=== PATIENT | male | born 1970 | race Caucasian/White ===

== ENCOUNTER 2021-03-10 17:19 | Inpatient (IN) | payer OTHER ==
[~2021-03-10] VITALS: Ht 175.3 cm; Wt 128.4 kg
--- NOTE | 2021-03-10 17:36 | NUR ---
51 years old male alert, oriented x4 presents to er with abdominal pain x2 days denies nausea, vomiting.
[2021-03-10] MEDS ORDERED: ONDANSETRON HCL/PF 4 MG/2 ML VIAL ONE (17:37)
[2021-03-10] MEDS ORDERED: HYDROMORPHONE 1 MG/1 ML DISP.SYRIN ONE (17:38)
[2021-03-10 17:52] LABS: BASOPHILS # (AUTO) 0.1 K/uL (0.0-0.2); BASOPHILS % (AUTO) 0.4 % (0.0-2.0); HEMATOCRIT 58 % (39-51); LYMPHOCYTES # (AUTO) 0.5 K/uL (0.8-4.8); LYMPHOCYTES % (AUTO) 2.8 % (20.0-44.0); MEAN CORPUSCULAR HGB CONC 34 g/dl (31.0-36.0); MEAN CORPUSCULAR VOLUME 88 fL (80-96); MONOCYTES # (AUTO) 1.6 K/uL (0.1-1.30); MONOCYTES % (AUTO) 8.3 % (2.0-12.0); NEUTROPHILS # (AUTO) 16.5 K/uL (1.8-8.9); NEUTROPHILS % (AUTO) 88.5 % (43.0-81.0); PLATELET COUNT (AUTO) 311 K/uL (150-450); RED BLOOD CELL COUNT(AUTO) 6.58 MIL/uL (4.5-6.0); WHITE BLOOD COUNT (AUTO) 18.7 K/uL (4.3-11.0)
[2021-03-10 17:54] LABS: HEMOGLOBIN 19.5 g/dL (13.5-17.5)
[2021-03-10] MEDS ORDERED: HYDROMORPHONE INJ 2 MG/ML DISP.SYRIN IV ONE (18:00)
[2021-03-10] MEDS ORDERED: IV NS 0.9% 1,000 ML BAG IV ONE ×2 (18:00→19:00)
[2021-03-10] MEDS ORDERED: ONDANSETRON HCL/PF 4 MG/2 ML VIAL IVP ONE (18:00)
[2021-03-10 18:04] LABS: CALCIUM, SERUM 9.9 mg/dL (8.5-10.1); CREATININE 1.7 mg/dL (0.6-1.3); POTASSIUM 3.3 mmol/L (3.5-5.1)
[2021-03-10 18:10] LABS: ALBUMIN 3.4 g/dL (3.4-5.0); BILIRUBIN,TOTAL 2.2 mg/dL (0.2-1.0); TOTAL PROTEIN, SERUM 8.6 g/dL (6.4-8.2)
--- NOTE | 2021-03-10 18:36 | NUR ---
DR. DELGADO SPEAKING WITH DR. ALONZO.
--- NOTE | 2021-03-10 18:40 | NUR ---
CALLED FOR BED
[2021-03-10] MEDS ORDERED: PIPERACILLIN /TAZOBACTAM 3.375 G in IV D5W 50 ML IV ONE (19:00)
--- NOTE | 2021-03-10 19:04 | NUR ---
[facility] CALLED RIGHT OF WAY MAN PAGED.
[2021-03-10 19:06] LABS: BAND % (MANUAL) 6 % (0.0-5.0); LYMPHOCYTES % (MANUAL) 13 % (16-48); MONOCYTES % (MANUAL) 4 % (0-11.0); NEUTROPHILS % (MANUAL) 77 (42-76)
[2021-03-10] MEDS ORDERED: PIPERACILLIN /TAZOBACTAM 3.375 G VIAL IV ONE (19:15)
--- NOTE | 2021-03-10 19:18 | NUR ---
report endorsed to nurse Armenta all questions answered.
--- NOTE | 2021-03-10 19:20 | NUR ---
patient NPO/consent signed for 930 AM surgery.
--- NOTE | 2021-03-10 19:24 | NUR ---
sent covid swab to lab
--- NOTE | 2021-03-10 20:07 | NUR ---
Rosanne malave in [facility] - 03/10/21 at 2007 by EYAD [phone]
--- NOTE | 2021-03-10 20:21 | NUR ---
GAVE REPORT TO LEXY MAC FOR ANDREW
[2021-03-10] MEDS ORDERED: ONDANSETRON HCL/PF 4 MG/2 ML VIAL IVP PRN (20:30)
[2021-03-10] MEDS ORDERED: ZOLPIDEM TARTRATE 5 MG TABLET PO PRN (20:30)
[2021-03-10] MEDS ORDERED: IV NS 0.9% 1,000 ML IV PRN (20:30)
[2021-03-10] MEDS ORDERED: METRONIDAZOLE 500MG/ NS 100ML 500 MG in PREMIX 1 EA IV SCH (20:30)
[2021-03-10] MEDS ORDERED: Z GUARD REMEDY 2 OZ OINT TP PRN (20:30)
[2021-03-10] MEDS ORDERED: MAG HYDROX/AL HYDROX/SIMETH 30 ML UDC PO PRN (20:30)
[2021-03-10] MEDS ORDERED: MAGNESIUM HYDROXIDE 30 ML UDC PO PRN (20:30)
[2021-03-10 20:38] VITALS: BP 113/87
--- NOTE | 2021-03-10 20:38 | NUR ---
RN ADMITTING NOTE PT TRANSPORTED BY TWO PEOPLE FROM ED BY STRETCHER. RECEIVED REPORT FROM [facility], A/OX4. PT ABLE TO MAKE NEEDS KNOWN. NO SOB NOTED, NO C/O PAIN AT THIS TIME, NO S/S OF ANY APPARENT DISTRESS NOTED. RESPIRATIONS EVEN AND UNLABORED, HYPOACTIVE BOWEL SOUNDS AUSULTATED THROUGHOUT, ABDOMEN IS TENDER TO TOUCH. CAP REFILL <3 SECS, PULSES PRESENT BILATERALLY, GOOD CIRCULATION NOTED. IV ACCESS NOTED IN LAC G# 18 INTACT,PATENT, AND FLUSHING WELL. BELONGINGS ACCOUNTED FOR, AND KEPT AT BEDSIDE PER PT REQUEST. ASPIRATION AND SAFETY PRECAUTIONS IN PLACE AND MAINTAINED AT ALL TIMES. BED IN LOWEST LOCKED POSITION, SIDE RAILS UPX2, TABLE AND CALL LIGHT WITHIN REACH. WILL CONTINUE PLAN OF CARE.
[2021-03-10] MEDS: MORPHINE SULFATE INJ 2 MG/ML DISP.SYRIN IV PRN (21:18)
--- NOTE | 2021-03-10 21:18 | NUR ---
PT C/O SHARP AND ACHING 10/10 PAIN ON HIS ABDOMEN, VS WNL PER PT REQUEST MORPHINE 2MG/ML IVP Q4HR PRN ADMINISTERED PER ORDER. WILL CONTINUE TO MONITOR.
[2021-03-11] VITALS (79 sets, daily range): BP systolic 42–169; BP diastolic 16–111
[2021-03-11] MEDS: ZOSYN IVPB 3.375 G in IV D5W 50ml IV SCH ×2 (00:55→08:32)
[2021-03-11] MEDS: MORPHINE SULFATE INJ 2 MG/ML DISP.SYRIN IV PRN (01:45)
[2021-03-11] MEDS ORDERED: MORPHINE SULFATE INJ 4 MG/ML DISP.SYRIN IV PRN (02:30)
--- NOTE | 2021-03-11 02:42 | NUR ---
PT C/O SHARP AND ACHING 10/10 PAIN ON HIS ABDOMEN, NON ALLEVIATING PAIN, PT SCREAMING. DR MYESHA RAMIREZ ORDERED MORPHINE 4MG/ML IVP Q4HR PRN ADMINISTERED PER ORDER. WILL CONTINUE TO MONITOR.
[2021-03-11] MEDS: HYDROMORPHONE 1 MG/1 ML DISP.SYRIN IV PRN (05:03)
--- NOTE | 2021-03-11 05:03 | NUR ---
PT C/O SHARP AND ACHING 10/10 PAIN ON HIS ABDOMEN, NON ALLEVIATING PAIN, PT SCREAMING AND YELLING. DR MYESHA RAMIREZ ORDERED DILAUDID 1MG/ML IVP Q6HR PRN ADMINISTERED PER ORDER. WILL CONTINUE TO MONITOR.
--- NOTE | 2021-03-11 06:30 | NUR ---
RN CLOSING NOTE PT IS AWAKE IN BED AT THIS TIME. 2L O2 VIA NC. NO SOB OR RESPIRATORY DISTRESS NOTED. PT REMAINED UNSTABLE THROUGHOUT SHIFT DUE TO PAIN AND DISCOMFORT. IV ACCESS INTACT,PATENT AND FLUSHING WELL. BED IN LOCKED POSITION, CALL LIGHT AND TABLE WITHIN REACH. SIDE RAILS UPX2. WILL ENDORSE TO DAY SHIFT NURSE
[2021-03-11 07:13] LABS: BASOPHILS % (AUTO) 0.2 % (0.0-2.0); EOSINOPHILS % (AUTO) 0.1 % (0.0-6.0); HEMATOCRIT 57 % (39-51); LYMPHOCYTES # (AUTO) 0.5 K/uL (0.8-4.8); LYMPHOCYTES % (AUTO) 17.2 % (20.0-44.0); MEAN CORPUSCULAR HGB CONC 34 g/dl (31.0-36.0); MEAN CORPUSCULAR VOLUME 89 fL (80-96); MONOCYTES # (AUTO) 0.2 K/uL (0.1-1.30); MONOCYTES % (AUTO) 6.8 % (2.0-12.0); NEUTROPHILS # (AUTO) 2.3 K/uL (1.8-8.9); NEUTROPHILS % (AUTO) 75.7 % (43.0-81.0); PLATELET COUNT (AUTO) 282 K/uL (150-450); RED BLOOD CELL COUNT(AUTO) 6.41 MIL/uL (4.5-6.0)
--- NOTE | 2021-03-11 07:15 | NUR ---
MS RN NOTE PATIENT RECEIVED ALERT AND ORIENTED ON BED. PATIENT COMPLAINING OF PAIN ON ABDOMEN 06/12. PATIET RECEIVED DILAUDID AT AROUND 5 AM ENDORSED AND NEXT MEDICATION IS AT 9AM, PATIENT NOTED TO CALM DOWN BETTERR. ON O2 AT 2-3LPM VIA NASAL CANULA SATURATING AT 94-95% WITH EVEN AND UNLABORED BREATHING. COMFORT MEASURES PROVIDED. WITH IV ACCESS ON LEFT AC G18 WITH NS RUNNING AT 75ML/HR INFUSING WELL. BED IN LOCKED POSITION, CALL LIGHT AND TABLE WITHIN REACH. SIDE RAILS UPX2. WILL CONTINUE TO MONITOR PATIENT.
[2021-03-11 07:19] LABS: HEMOGLOBIN 19.3 g/dL (13.5-17.5)
[2021-03-11 07:30] LABS: ALBUMIN 2.6 g/dL (3.4-5.0); CALCIUM, SERUM 9.5 mg/dL (8.5-10.1); CREATININE 1.7 mg/dL (0.6-1.3); MAGNESIUM 1.9 mg/dL (1.8-2.4); PHOSPHORUS 3.2 mg/dL (2.5-4.9); POTASSIUM 3.6 mmol/L (3.5-5.1); TOTAL PROTEIN, SERUM 7.4 g/dL (6.4-8.2)
[2021-03-11] MEDS ORDERED: PANTOPRAZOLE 40 MG TABLET.DR PO SCH (07:30)
[2021-03-11] MEDS ORDERED: ANESTHESIA TRAY IN PYXIS 1 EA TRAY MC ONE (07:53)
[2021-03-11] MEDS ORDERED: LIDOCAINE 1% INJ 50 ML MDV IJ ONE (07:53)
[2021-03-11] MEDS ORDERED: BUPIVACAINE 0.5 % PF 150 MG/30 ML VIAL ONE (07:53)
[2021-03-11] MEDS ORDERED: BUPIVACAINE MPF W/EPI 0.25% 30 ML VIAL ONE (07:53)
[2021-03-11] MEDS ORDERED: BACITRACIN 50000 UNITS/VIAL ONE (07:54)
[2021-03-11] MEDS: ACETAMINOPHEN 650 MG/SUPP.RECT RC PRN ×2 (08:32→21:13)
--- NOTE | 2021-03-11 08:45 | NUR ---
MS RN NOTE PATIENT FOR SURGERY TODAY. MAINTAINED ON NPO. PATIENT WITH TEMPERATURE OF 101.3. SPONGE BATH DONE. DR. VALENTE NOTIFIED WITH ORDER TO GIVE TYLENOL SUPPOSITORY. COMFORT MEASURES PROVIDED. OR NURSE NOTIFIED. WILL CONTINUE TO MONITOR PATIENT.
--- NOTE | 2021-03-11 09:15 | NUR ---
MS RN NOTE PATIENT PICKED UP BY SYLVIA OF OR FOR SCHEDULED PROCEDURE. MEDICATIONS GIVEN ENDORSED AND WITH LATEST TEMPERATURE OF 99.3. CONSENTS IN THE CHART AND SIGNED BY PATIENT HIMSELF. ACCOMPANIED BY 2 OR NURSES. TO OR. WILL WAIT FOR ADVICE. CHARGE NURSE AWARE.
[2021-03-11] MEDS ORDERED: HYDROMORPHONE INJ 2 MG/ML DISP.SYRIN ONE (09:16)
[2021-03-11 09:17] LABS: BAND % (MANUAL) 6 % (0.0-5.0); LYMPHOCYTES % (MANUAL) 15 % (16-48); MONOCYTES % (MANUAL) 8 % (0-11.0); NEUTROPHILS % (MANUAL) 71 (42-76)
[2021-03-11] MEDS ORDERED: ROCURONIUM BROMIDE 50 MG/5 ML ONE (09:58)
[2021-03-11] MEDS ORDERED: NOREPINEPHRINE 8 MG in IV NS 0.9% 242 ML IV PRN ×2 (10:00→11:30)
[2021-03-11] MEDS ORDERED: METRONIDAZOLE 500MG/ NS 100ML 100 ML IV ONE (10:14)
--- NOTE | 2021-03-11 10:15 | NUR ---
MS RN NOTE RECEIVED A CALL FROM OR THAT PATIENT WAS INTUBATED AND WILL GO TO ICU FOR FURTHER MANAGEMENT. AWAITING AVAILABLE BED.
--- NOTE | 2021-03-11 10:25 | NUR ---
PATIENT WILL GOTO BED 257 ENDORSED BY CHARGE NURSE. PATIENT ENDORSED TO ICU NURSE. WILL BRING PATIENT'S BELONGINGS TO ICU FOR ENDORSEMENT.
--- NOTE | 2021-03-11 11:00 | NUR ---
MS RN NOTE PATIENT ENDORSED TO WELL PULLER ASHLYN. PATIENT IS CURRENTLY AT OR/RR AWAITING TRANSFER TO ICU.
--- NOTE | 2021-03-11 11:10 | NUR ---
RT NOTE RECEIVED PT INTUBATED FROM O.R. 7.5 ETT 25 CM AT LIP. ETT SECURED. CUFF INFLATED. SETTINGS GIVEN BY Garcia FATIMA 14 600 100% +5. ALARMS SET PER PROTOCOL AND AUDIBLE. VENT PLUGGED IN TO RED OUTLET. AMBU BAG AT BED SIDE. Addendum: 03/11/21 at 1112 by HELGA ALONZO RT Amended: Links added.
--- NOTE | 2021-03-11 11:15 | NUR ---
RN RECEIVING NOTES RECEIVED PATIENT FROM LEXY CARDENAS, INTUBATED WITH SETTINGS AC 14 TV 600 FIO2 100% PEEP 5. NGT TO LOW CONTINUOUS SUCTION. CORNEAL REFLEX ABSENT, GAG REFLEX ABSENT, AND COUGH REFLEX ABSENT. ABDO DRESSING INTACT WITH UBALDO SUCTION PRESENT. ISRAEL DRAINING BY GRAVITY. PERIPHERAL LINE AT LEFT AC WITH LEVO AT 0.1MCG/KG. SAFETY CHECKS IN PLACE. WILL CONTINUE TO MONITOR.
[2021-03-11 11:30] LABS: THYROID STIMULATING HORMONE 0.654 uIU/mL (0.358-3.74)
[2021-03-11] MEDS ORDERED: IV D5/0.45 NACL 1,000 ML IV PRN (11:30)
[2021-03-11] MEDS ORDERED: ANCEF 1 GM/50 ML D5W IV SCH (12:00)
[2021-03-11] MEDS ORDERED: METRONIDAZOLE 500MG/ NS 100ML 500 MG in PREMIX 1 EA IV SCH ×2 (12:00→18:00)
[2021-03-11 12:22] LABS: BASOPHILS % (AUTO) 0.1 % (0.0-2.0); HEMATOCRIT 58 % (39-51); LYMPHOCYTES # (AUTO) 0.5 K/uL (0.8-4.8); LYMPHOCYTES % (AUTO) 12.7 % (20.0-44.0); MEAN CORPUSCULAR HGB CONC 33 g/dl (31.0-36.0); MEAN CORPUSCULAR VOLUME 91 fL (80-96); MONOCYTES # (AUTO) 0.1 K/uL (0.1-1.30); NEUTROPHILS # (AUTO) 3.3 K/uL (1.8-8.9); NEUTROPHILS % (AUTO) 84.2 % (43.0-81.0); PLATELET COUNT (AUTO) 251 K/uL (150-450); WHITE BLOOD COUNT (AUTO) 3.9 K/uL (4.3-11.0)
[2021-03-11 12:30] LABS: CALCIUM, SERUM 8.4 mg/dL (8.5-10.1); CREATININE 2.7 mg/dL (0.6-1.3); POTASSIUM 3.6 mmol/L (3.5-5.1)
[2021-03-11 12:40] LABS: HEMOGLOBIN 19.2 g/dL (13.5-17.5)
[2021-03-11] MEDS: METOCLOPRAMIDE HCL 10 MG/2 ML VIAL IV SCH ×3 (12:41→23:23)
[2021-03-11] MEDS: PROPOFOL 100 ML IV PRN ×2 (12:43→23:36)
--- NOTE | 2021-03-11 12:59 | NUR ---
ET-TUBE PULLED BACK TO 20CM AT LIP LINE. RESP. RATE TO 24. PEEP TO 10 Addendum: 03/11/21 at 1301 by MENDOZA LEON RT Amended: Links added.
[2021-03-11] MEDS ORDERED: IV NS 0.9% 500 ML IV ONE (13:00)
[2021-03-11 13:16] LABS: ABG BASE EXCESS -9.8 mmol/L; ABG OXYGEN SATURATION 90.3 % (92.0-98.5); ABG PH 7.113 (7.350-7.450); ABG PO2 69.8 mmHg (75.0-100.0); AaDO2 574.2 mmHg; COHb 0.6 % (0.5-1.5); MetHb 0.6 % (0.0-1.5); O2Hb 89.2 % (94.0-97.0); PEEP,BG 5 cm H2O; SITE, ABG Right Radial; VT, ABG 600 mL
[2021-03-11] MEDS ORDERED: VANCOMYCIN 1.25 GM in IV D5W 250 ML IV SCH (15:00)
[2021-03-11] MEDS ORDERED: CEFEPIME 2 GM in IV D5W 100 ML IV SCH (15:00)
[2021-03-11 15:11] LABS: BASOPHILS % (AUTO) 0.1 % (0.0-2.0); EOSINOPHILS % (AUTO) 0.1 % (0.0-6.0); HEMOGLOBIN 18.8 g/dL (13.5-17.5); LYMPHOCYTES # (AUTO) 0.4 K/uL (0.8-4.8); MEAN CORPUSCULAR HGB CONC 33 g/dl (31.0-36.0); MONOCYTES # (AUTO) 0.3 K/uL (0.1-1.30)
[2021-03-11 15:15] LABS: ABG BASE EXCESS -10.6 mmol/L; ABG OXYGEN SATURATION 89.3 % (92.0-98.5); ABG PCO2 54.7 mmHg (35.0-45.0); ABG PH 7.157 (7.350-7.450); ABG PO2 60.6 mmHg (75.0-100.0); AaDO2 597.7 mmHg; COHb 0.3 % (0.5-1.5); MetHb 0.5 % (0.0-1.5); O2Hb 88.6 % (94.0-97.0); PEEP,BG 10 cm H2O; SITE, ABG Right Radial; VT, ABG 600 mL
[2021-03-11 15:17] LABS: HEMATOCRIT 58 % (39-51); LYMPHOCYTES % (AUTO) 9.8 % (20.0-44.0); MEAN CORPUSCULAR VOLUME 91 fL (80-96); MONOCYTES % (AUTO) 7.3 % (2.0-12.0); NEUTROPHILS # (AUTO) 3.2 K/uL (1.8-8.9); NEUTROPHILS % (AUTO) 82.7 % (43.0-81.0); RED BLOOD CELL COUNT(AUTO) 6.33 MIL/uL (4.5-6.0); WHITE BLOOD COUNT (AUTO) 3.8 K/uL (4.3-11.0)
[2021-03-11] MEDS: PHENYLEPHRINE 100 MG in IV NS 0.9% 240 ML IV PRN ×2 (15:27→21:33)
[2021-03-11 15:29] LABS: CALCIUM, SERUM 8.5 mg/dL (8.5-10.1); CREATININE 3.2 mg/dL (0.6-1.3); POTASSIUM 3.4 mmol/L (3.5-5.1)
[2021-03-11 15:57] LABS: PLATELET COUNT (AUTO) 232 K/uL (150-450)
[2021-03-11 16:16] LABS: BAND % (MANUAL) 22 % (0.0-5.0); LYMPHOCYTES % (MANUAL) 25 % (16-48); MONOCYTES % (MANUAL) 7 % (0-11.0); MYELOCYTES % 13 % (0-0)
[2021-03-11 16:18] LABS: NEUTROPHILS % (MANUAL) 33 (42-76)
[2021-03-11] MEDS: VASOPRESSIN INJ 40 UNIT in IV NS 0.9% 38 ML IV PRN (18:24)
[2021-03-11] MEDS ORDERED: VASOPRESSIN INJ 20 UNIT in IV NS 0.9% 39 ML IV PRN (18:30)
[2021-03-11] MEDS: FLUCONAZOLE IN NS,PREMIX 200 MG in PREMIX 1 EA IV SCH (18:38)
--- NOTE | 2021-03-11 18:57 | NUR ---
RN NOTE CONDITION UNSTABLE. SEDATED AND ORALLY INTUBATED. SETTINGS AC 28 TV 650 FIO2 100% PEEP 10. PICC LINE AT LV. ON GUCCI AT 3.0, STARTED ON VASOPRESSIN AT 0.04 SHOCK DOSE, PROPOFOL AT 15MCG/KG. PICC LINE AT LV. ISRAEL DRAINED VERY SCANT OUTPUT.NG ON LOW CONTINUOUS SUCTION DRAINED 500MLS. IVAS IN PROGRESS. SAFETY CHECKS IN PLACE. WILL ENDORSE TO NIGHT RN FOR CONTINUITY OF CARE.
--- NOTE | 2021-03-11 19:30 | NUR ---
RN NOTE RECEIVED PATIENT IN BED, SEDATED, BREATHING IS RAPID, ON ET TUBE CONNECTED TO MECHANICAL VENTILATOR WITH SETTINGS FOLLOWS: 7.5/20, AC 28, TV 650, FIO2 100%, PEEP 10, SATURATION AT 94%, ST ON THE MONITOR, HR IS 118. NG TUBE AT L NARE CONNECTED TO LOW CONTINUOUS SUCTION, POSITIVE PLACEMENT VERIFIED BY ASPIRATION AND AUSCULTATION, DRAINING TO A BROWNISH OUTPUT, MODERATE AMOUNT NOTED. NOTED LENO 18G, AND LV MIDLINE, ALL HUBS PATENT AND FLUSHING WELL, NO S/S OF INFECTION, WITH D5 1/2 NS INFUSING AT 150 ML/HR, VASOPRESSIN AT 0.04 UNITS/MIN, NEOSYNEPHRINE AT 3 MCG/KG/MIN, PROPOFOL AT 15 MCG/KG/MIN. NOTED POST OP WOUND AT ABDOMEN WITH DRESSING DRY AND INTACT. SAFETY MEASURES IMPLEMENTED. PATIENT BED ALARM IS ON. HEAD OF BED ELEVATED. BED IS LOCKED, IN LOWEST POSITION AND SIDE RAILS UP. CALL LIGHT WITHIN REACH OF THE PATIENT. WILL CONTINUE TO MONITOR AND REASSESS FOR ANY CHANGES.
[2021-03-11] MEDS: MEROPENEM 1 G in IV NS 0.9% 100 ML IV SCH (19:39)
--- NOTE | 2021-03-11 20:10 | NUR ---
RN NOTE NOTED TEMP AT 99.6, COOLING MEASURES PROVIDED. WILL CONTINUE TO MONITOR TEMP.
--- NOTE | 2021-03-11 20:15 | NUR ---
RN NOTE NOTED SBP SUSTAINED AT 60-70'S ON MAX OF VASOPRESSIN AT 0.04 UNITS/MIN, AND GUCCI AT 3 MCG/KG/MIN. DR GABRIEL WAS NOTIFIED, ORDERS RECEIVED TO START LEVOPHED DRIP TO KEEP MAP >65. SOLAR HOT WATER INSTALLER EDMADE AWARE.
[2021-03-11] MEDS: PANTOPRAZOLE 40 MG VIAL IV SCH (21:13)
[2021-03-11] MEDS: HYDROCORTISONE SOD SUCCINATE 100 MG/2 ML VIAL IV SCH (21:13)
[2021-03-11] MEDS: NOREPINEPHRINE 8 MG in IV NS 0.9% 242 ML IV PRN (21:35)
--- NOTE | 2021-03-11 21:45 | NUR ---
RN NOTE LATEST ABG RESULT RELAYED TO DR GABRIEL, WELL LASTEST K LEVEL AT 3.4. ORDERS RECEIVED TO START SODIUM BICARBONATE INFUSION 100 MEQ AT 100 ML/HR, AND KCL IV 40 MEQ. RAIL BENDER ED AWARE.
[2021-03-11 21:50] LABS: ABG BASE EXCESS -13.3 mmol/L; ABG OXYGEN SATURATION 99.3 % (92.0-98.5); ABG PCO2 39.7 mmHg (35.0-45.0); ABG PH 7.179 (7.350-7.450); ABG PO2 207.4 mmHg (75.0-100.0); AaDO2 465.9 mmHg; COHb 0.3 % (0.5-1.5); MetHb 0.6 % (0.0-1.5); O2Hb 98.4 % (94.0-97.0); SITE, ABG Right Radial; VENT MODE, BG ac 28 650 100% +10
--- NOTE | 2021-03-11 22:10 | NUR ---
RT NOTE ABG taken and critical results given to self sealing fuel tank builder. Fio2 titrated to 90% Addendum: 03/11/21 at 2211 by ELIS GRISSOM RT Amended: Links added.
[2021-03-11] MEDS ORDERED: SODIUM BICARBONATE SYR 50 MEQ/50 ML DISP.SYRIN ONE (22:56)
[2021-03-11] MEDS ORDERED: Sodium Bicarbonate 100 MEQ in IV D5W 1,000 ML IV PRN (23:00)
[2021-03-11] MEDS: POTASSIUM CL. PREMIX PERIPHER. 50 ML IV SCH (23:02)
--- NOTE | 2021-03-11 23:40 | NUR ---
RT NOTE PEEP decreased to +5 due to low bp per DIGITAL MEDIA DESIGNER qian orders. Will continue to monitor closely. Addendum: 03/12/21 at 0001 by ELIS GRISSOM RT Amended: Links added.
--- NOTE | 2021-03-11 23:45 | NUR ---
RN NOTE NOTED NO CHANGE IN STATUS, DR GABRIEL WAS NOTIFIED, ORDER RECEIVED TO ADMINISTER SODIUM BICARBONATE 50 MEQ IV ONCE. GREENS PICKER ED AWARE.
[2021-03-12] VITALS (96 sets, daily range): BP systolic 52–158; BP diastolic 24–111
[2021-03-12] MEDS ORDERED: SODIUM BICARBONATE SYR 50 MEQ/50 ML DISP.SYRIN IV ONE
[2021-03-12] MEDS: MORPHINE SULFATE INJ 2 MG/ML DISP.SYRIN IV PRN (00:09)
[2021-03-12] MEDS: POTASSIUM CL. PREMIX PERIPHER. 50 ML IV SCH ×3 (00:15→02:02)
[2021-03-12] MEDS ORDERED: NOREPINEPHRINE 8MG/250ML RTU 250 ML IV ONE ×2 (00:59→05:35)
[2021-03-12] MEDS: NOREPINEPHRINE 8 MG in IV NS 0.9% 242 ML IV PRN ×4 (01:03→05:38)
[2021-03-12] MEDS: PHENYLEPHRINE 100 MG in IV NS 0.9% 240 ML IV PRN ×5 (01:44→19:52)
[2021-03-12] MEDS: ACETAMINOPHEN 650 MG/SUPP.RECT RC PRN ×3 (04:49→21:06)
[2021-03-12] MEDS: METOCLOPRAMIDE HCL 10 MG/2 ML VIAL IV SCH ×4 (05:01→23:02)
[2021-03-12] MEDS: HYDROCORTISONE SOD SUCCINATE 100 MG/2 ML VIAL IV SCH ×3 (05:01→21:06)
[2021-03-12 05:17] LABS: CALCIUM, SERUM 7.6 mg/dL (8.5-10.1); CREATININE 5.4 mg/dL (0.6-1.3); MAGNESIUM 1.9 mg/dL (1.8-2.4); POTASSIUM 4.8 mmol/L (3.5-5.1)
[2021-03-12 05:40] LABS: BASOPHILS % (AUTO) 0.1 % (0.0-2.0); HEMATOCRIT 54 % (39-51); HEMOGLOBIN 17.2 g/dL (13.5-17.5); LYMPHOCYTES # (AUTO) 0.8 K/uL (0.8-4.8); LYMPHOCYTES % (AUTO) 6.9 % (20.0-44.0); MEAN CORPUSCULAR HGB CONC 32 g/dl (31.0-36.0); MEAN CORPUSCULAR VOLUME 93 fL (80-96); MONOCYTES # (AUTO) 0.7 K/uL (0.1-1.30); NEUTROPHILS # (AUTO) 10.6 K/uL (1.8-8.9); RED BLOOD CELL COUNT(AUTO) 5.83 MIL/uL (4.5-6.0); WHITE BLOOD COUNT (AUTO) 12.2 K/uL (4.3-11.0)
[2021-03-12 05:56] LABS: PLATELET COUNT (AUTO) 133 K/uL (150-450)
--- NOTE | 2021-03-12 06:12 | NUR ---
RT NOTE Pt rec'd orally intubated via ETT Sz #7.5 secured @ 20CM at the lipline. Pt on [facility] vent on noted settings as charted. ETT is patent and secured. Alarms are set and audible. Ambu bag bedside. Vent plugged into red outlet. will continue to monitor closely. Addendum: 03/12/21 at 0613 by ELIS GRISSOM RT Amended: Links added.
[2021-03-12] MEDS ORDERED: PHENYLEPHRINE 10 MG/ML VIAL ONE (06:13)
[2021-03-12] MEDS: VASOPRESSIN INJ 40 UNIT in IV NS 0.9% 38 ML IV PRN ×2 (07:58→20:05)
[2021-03-12] MEDS ORDERED: DEXTROSE 50%-WATER 50 ML DISP.SYRIN IV PRN (08:00)
--- NOTE | 2021-03-12 08:00 | NUR ---
RN Note; Pt received intubated, continue with vent settings as ordered. ABG pending. ST >120s on tele monitor. running elevated temp, cooling measures ON. MD notified for minimal UO overnight. F/C intact with minimal urine output <30/12hr with previous shift. PICC line, clean & intact, Pressers running as ordered, titration to keep SBP> 90. Surgical dressing clean & dry. Sx drainage with serosanguineous output. NG tube to low continues suctions with dark green output. Aspiration precautions observed. Safety measures observed. Continue to monitor closely.
[2021-03-12] MEDS: NOREPINEPHRINE 32 MG in IV NS 0.9% 218 ML IV PRN ×3 (08:34→19:53)
[2021-03-12 09:10] LABS: ABG BASE EXCESS -14.7 mmol/L; ABG OXYGEN SATURATION 99.8 % (92.0-98.5); ABG PCO2 31.3 mmHg (35.0-45.0); ABG PO2 442.4 mmHg (75.0-100.0); AaDO2 239.3 mmHg; COHb 0.3 % (0.5-1.5); MetHb 0.9 % (0.0-1.5); O2Hb 98.6 % (94.0-97.0); PEEP,BG 5 cm H2O; SITE, ABG Left Radial; VT, ABG 650 mL
[2021-03-12] MEDS: MEROPENEM 1 G in IV NS 0.9% 100 ML IV SCH ×2 (09:18→21:00)
[2021-03-12] MEDS: PANTOPRAZOLE 40 MG VIAL IV SCH ×2 (09:18→21:06)
[2021-03-12] MEDS: Sodium Bicarbonate 100 MEQ in IV D5W 1,000 ML IV SCH ×2 (09:18→19:35)
[2021-03-12 09:25] LABS: BASOPHILS % (AUTO) 0.2 % (0.0-2.0); EOSINOPHILS % (AUTO) 0.6 % (0.0-6.0); HEMATOCRIT 51 % (39-51); HEMOGLOBIN 16.1 g/dL (13.5-17.5); LYMPHOCYTES # (AUTO) 1.2 K/uL (0.8-4.8); LYMPHOCYTES % (AUTO) 6.7 % (20.0-44.0); MEAN CORPUSCULAR HGB CONC 32 g/dl (31.0-36.0); MEAN CORPUSCULAR VOLUME 92 fL (80-96); MONOCYTES # (AUTO) 0.7 K/uL (0.1-1.30); MONOCYTES % (AUTO) 4.3 % (2.0-12.0); NEUTROPHILS # (AUTO) 15.2 K/uL (1.8-8.9); NEUTROPHILS % (AUTO) 88.2 % (43.0-81.0); PLATELET COUNT (AUTO) 109 K/uL (150-450); RED BLOOD CELL COUNT(AUTO) 5.52 MIL/uL (4.5-6.0); WHITE BLOOD COUNT (AUTO) 17.2 K/uL (4.3-11.0)
[2021-03-12 10:11] LABS: ALBUMIN 1.5 g/dL (3.4-5.0); BILIRUBIN,TOTAL 2.7 mg/dL (0.2-1.0); CREATININE 6.2 mg/dL (0.6-1.3); MAGNESIUM 1.9 mg/dL (1.8-2.4); POTASSIUM 4.9 mmol/L (3.5-5.1); TOTAL PROTEIN, SERUM 5.2 g/dL (6.4-8.2)
[2021-03-12] MEDS: PROPOFOL 100 ML IV PRN ×5 (10:42→23:20)
[2021-03-12 11:02] LABS: BAND % (MANUAL) 11 % (0.0-5.0); LYMPHOCYTES % (MANUAL) 11 % (16-48); MONOCYTES % (MANUAL) 10 % (0-11.0); NEUTROPHILS % (MANUAL) 68 (42-76)
[2021-03-12] MEDS: BLOOD SUGAR DIAGNOSTIC 1 EACH STRIP IN SCH ×2 (11:54→18:30)
[2021-03-12] MEDS: HYDROMORPHONE 1 MG/1 ML DISP.SYRIN IV PRN (13:27)
[2021-03-12] MEDS ORDERED: VANCOMYCIN 1 GM in IV D5W 250ml IV SCH (15:00)
[2021-03-12] MEDS: INSULIN REGULAR, HUMAN 100 UNIT/ML 3 ML VIAL SQ PRN (18:33)
--- NOTE | 2021-03-12 19:29 | NUR ---
RN Note: Report given to evening shift for continuity of care.
--- NOTE | 2021-03-12 19:33 | NUR ---
RN NOTE Received pt intubated, tolerating current vent settings as ordered. currently ST hr 120s on tele monitor. Cooling measures in place. F/C intact with minimal urine output. PICC line, clean & intact, Pressers running as ordered, to keep SBP> 90. Surgical dressing clean & dry drainage with serosanguineous output. NG tube to left nare on low continues suctions. side rails up x 2, safety measures in place will cont. to monitor pt.
[2021-03-12] MEDS: FLUCONAZOLE IN NS,PREMIX 200 MG in PREMIX 1 EA IV SCH (19:36)
[2021-03-12] MEDS: HEPARIN SODIUM, PORCINE 5000 UNITS/1 ML VIAL SQ SCH (21:00)
--- NOTE | 2021-03-12 21:38 | NUR ---
RN NOTE To hold heparin per Dr. Castro.
--- NOTE | 2021-03-12 22:40 | NUR ---
GUIDEMANPHONE ENGINEER RN TALK TO PATIENT BROTHERS:JAZIEL VIDES /[phone], /, VAIBHAV POPE, /[phone]/, SISTER: KONG BABCOCK /[phone]/, & COUSIN TERRY KNUTSON /[phone]/, UPDATED PT CONDITION & PROGNOSIS. FAMILY DECIDED PLACE PT ON DNR CODE, BUT CONTINUE ALL CURRENT TREATMENT. MD TWISTING PRESS OPERATOR WAS NOTIFIED
[2021-03-13] VITALS (96 sets, daily range): BP systolic 72–147; BP diastolic 37–83
[2021-03-13] MEDS: BLOOD SUGAR DIAGNOSTIC 1 EACH STRIP IN SCH ×5 (00:28→23:45)
[2021-03-13] MEDS: INSULIN REGULAR, HUMAN 100 UNIT/ML 3 ML VIAL SQ PRN ×5 (00:29→23:45)
[2021-03-13] MEDS: PHENYLEPHRINE 100 MG in IV NS 0.9% 240 ML IV PRN ×7 (00:30→23:29)
[2021-03-13] MEDS: NOREPINEPHRINE 32 MG in IV NS 0.9% 218 ML IV PRN ×4 (01:09→23:40)
[2021-03-13] MEDS: HYDROMORPHONE 1 MG/1 ML DISP.SYRIN IV PRN (01:54)
[2021-03-13] MEDS: PROPOFOL 100 ML IV PRN ×8 (02:22→22:50)
[2021-03-13] MEDS: HYDROCORTISONE SOD SUCCINATE 100 MG/2 ML VIAL IV SCH (04:38)
[2021-03-13 04:50] LABS: BASOPHILS % (AUTO) 0.2 % (0.0-2.0); EOSINOPHILS % (AUTO) 0.5 % (0.0-6.0); HEMATOCRIT 37 % (39-51); HEMOGLOBIN 12.5 g/dL (13.5-17.5); LYMPHOCYTES # (AUTO) 0.9 K/uL (0.8-4.8); MEAN CORPUSCULAR HGB CONC 34 g/dl (31.0-36.0); MEAN CORPUSCULAR VOLUME 90 fL (80-96); MONOCYTES # (AUTO) 0.6 K/uL (0.1-1.30); NEUTROPHILS # (AUTO) 19.6 K/uL (1.8-8.9); NEUTROPHILS % (AUTO) 92.3 % (43.0-81.0); PLATELET COUNT (AUTO) 66 K/uL (150-450); RED BLOOD CELL COUNT(AUTO) 4.13 MIL/uL (4.5-6.0); WHITE BLOOD COUNT (AUTO) 21.2 K/uL (4.3-11.0)
--- NOTE | 2021-03-13 05:02 | NUR ---
04:30 HRS WAS ADVISED BY ELECTRIC MOTOR REBUILDER EDWARD TO RTN TO DO CX XRAY WHEN PATIENT IS STABLE OR WILL CALL, END OF NOTE...
[2021-03-13 05:10] LABS: MAGNESIUM 1.6 mg/dL (1.8-2.4)
[2021-03-13 05:11] LABS: CREATININE 8.1 mg/dL (0.6-1.3)
[2021-03-13 05:13] LABS: CALCIUM, SERUM 5.8 mg/dL (8.5-10.1)
[2021-03-13] MEDS: METOCLOPRAMIDE HCL 10 MG/2 ML VIAL IV SCH ×4 (05:17→23:45)
[2021-03-13] MEDS: Sodium Bicarbonate 100 MEQ in IV D5W 1,000 ML IV SCH ×2 (05:30→15:13)
--- NOTE | 2021-03-13 05:30 | NUR ---
RN NOTE DR. HALE MADE AWARE OF CALCIUM 5.8. NO NEW ORDERS PER MD
[2021-03-13 05:35] LABS: BASOPHILS % (MANUAL) 0 % (0.0-2.0); EOSINOPHILS % (MANUAL) 0 % (0-4); LYMPHOCYTES % (MANUAL) 4 % (16-48); MONOCYTES % (MANUAL) 4 % (0-11.0)
[2021-03-13 05:52] LABS: BAND % (MANUAL) 40 % (0.0-5.0); METAMYELOCYTES % 2 % (0-0); NEUTROPHILS % (MANUAL) 50 (42-76)
--- NOTE | 2021-03-13 07:15 | NUR ---
EVENT EXECUTIVE NOTES RECEIVED PATIENT SEDATED, RESPONSIVE TO DEEP PAIN STIMULI , PUPILS ARE SLUGGISH , COUGH AND GAG REFLEX PRESENT , TOLERATING CURRENT VENT SETTINGS WITH SPO2 OF 98% , ETT 7.5/[address] 115 ON BEDSIDE MONITOR . UBALDO DRAINING VIA NEGATIVE PRESSURE WITH SEROSANGUINEOUS OUTPUT . FC DRAINING VIA GRAVITY , LEFT NGT DRAINING VIA LOW INTERMITTENT SUCTION WITH GREENISH OUTPUT , LV PICC LINE WITH NEOSYNEPRINE @ 3MNCG/KG/MIN , LECOPHED @ 0.7 MCG/KG/MIN . VASOPRESSIN @ 0.04U/MIN DIPRIVAN @ 45MCG/KG/MIN , 2 AMPS NA BICARB @ 100ML/HR INFUSING WELL . ALL NEEDS ATTENDED ,WILL CONTINUE TO MONITOR .
--- NOTE | 2021-03-13 07:25 | NUR ---
RN NOTE ENDORSED TO AM RN FOR CONTINUATION OF CARE. AWARE PT'S FAMILY WILL COME IN THE MORNING AFTER 0800 AM.
--- NOTE | 2021-03-13 07:40 | NUR ---
RT Pt received orally intubated on mechanical ventilation with noted settings. Vent is plugged into red outlet with BVM by bedside. Alarms are set and audible. Addendum: 03/13/21 at 1831 by TOLU KENNEDY RT Amended: Links added.
[2021-03-13] MEDS: Magnesium 1GM/D5W 100ML PREMIX 100 ML IV SCH ×2 (07:48→09:02)
[2021-03-13] MEDS: ACETAMINOPHEN 650 MG/SUPP.RECT RC PRN ×2 (07:58→12:13)
[2021-03-13] MEDS: HEPARIN SODIUM, PORCINE 5000 UNITS/1 ML VIAL SQ SCH (08:03)
[2021-03-13] MEDS: MEROPENEM 1 G in IV NS 0.9% 100 ML IV SCH ×2 (08:23→20:12)
[2021-03-13] MEDS: PANTOPRAZOLE 40 MG VIAL IV SCH ×2 (08:23→20:12)
[2021-03-13 08:32] LABS: ABG BASE EXCESS -8.7 mmol/L; ABG OXYGEN SATURATION 95.5 % (92.0-98.5); ABG PCO2 28.5 mmHg (35.0-45.0); ABG PH 7.352 (7.350-7.450); ABG PO2 80.7 mmHg (75.0-100.0); AaDO2 149.9 mmHg; COHb 0.2 % (0.5-1.5); MetHb 0.3 % (0.0-1.5); PEEP,BG 5 cm H2O; SITE, ABG Left Radial; VT, ABG 650 mL
--- NOTE | 2021-03-13 08:38 | NUR ---
TECHNOLOGY MANAGER NOTES SEEN AND EVALUATED BY DR VO , DISCUSSED LABS , VENT SETTINGS , PT IS SEDATED WITH DIPRIVAN @ 45MCG/KG/MIN , COUGH / GAG PRESENT , SLUGGISH PUPILS , ON MULTIPLE PRESSORS , LEVO @ 0.5MCG/KG/MIN , GUCCI @3MCG/KG/MIN , VASO @0.04U/MIN , DISCUSSED LATEST ABG . LOW URINE OUTPUT , TEMP OF 104F TYLENOL AND COOLING MEASURES GIVEN MD AWARE
--- NOTE | 2021-03-13 08:42 | NUR ---
ATTENDANCE SECRETARY NOTES SEEN AND EVALUATED BY RISHABH VALENTE , DISCUSSED LABS , VENT SETTINGS , PT IS SEDATED WITH DIPRIVAN @ 45MCG/KG/MIN , COUGH / GAG PRESENT , SLUGGISH PUPILS , ON MULTIPLE PRESSORS , LEVO @ 0.5MCG/KG/MIN , GUCCI @3MCG/KG/MIN , VASO @0.04U/MIN , DISCUSSED LATEST ABG . LOW URINE OUTPUT , TEMP OF 104F TYLENOL AND COOLING MEASURES GIVEN , RI J HD CATH PLACED PENDING HD . SYRUP MACHINE LABORER AWARE
--- NOTE | 2021-03-13 08:42 | NUR ---
1ST GRADE TEACHER NOTES SEEN AND EVALUATED BY DR ENCISO , DISCUSSED PT IS SEDATED WITH DIPRIVAN @45MCG/KG/MIN , COUGH / GAG PRESENT , PUPILS SLUGGISH , ON MULTIPLE PRESSORS , DISCUSSED LABS , MD SOTO
[2021-03-13] MEDS ORDERED: ROCURONIUM BROMIDE 50 MG/5 ML IV ONE (09:50)
--- NOTE | 2021-03-13 09:53 | NUR ---
RECYCLING SORTER NOTES NOTIFIED RISHABH VALENTE THAT HEPARIN IS HELD DUE TO PLT OF 66 TRENDING DOWN , ACCOUNT ADJUSTER AWARE. SEEN AND EVALUATED BY DR DELGADO , DISCUSSED PT HAS MULTIPLE PRESSORS OF LEVO @ 0.5MCG/KG/MIN , GUCCI @ 3MGC/KG/MIN , VASO @ 0.04U/MIN , FEBRILE TEMP OF 103.5 , NGT TO LOW ICS WITH GREEN OUTPUT MODERATE IN AMOUNT , DISCUSSED LABS , AWARE
[2021-03-13] MEDS ORDERED: VANCOMYCIN 1 GM in IV D5W 250ml IV SCH (15:00)
--- NOTE | 2021-03-13 17:16 | NUR ---
PACKING HOUSE LABORER NOTES HD STARTED , PT ON LEVOPHED @ 0.6MMCG/KG/MIN , GUCCI @ 3MCG/KG/MIN , SEDATED WITH DIPRIVAN@ 45MCG/KG/MIN , FEBRILE , 102.5 , TOLERATING VENT SETTINGS WITH SPO2 OF 97% , ST 111 ON BEDSIDE MONITOR , WILL CONTINUE TO MONITOR ,
--- NOTE | 2021-03-13 19:05 | NUR ---
RECEIVED PATIENT SEDATED, RESPONSIVE TO DEEP PAIN STIMULI , PUPILS ARE SLUGGISH ,GAG REFLEX PRESENT , ETT 7.5/[address] TOLERATING CURRENT VENT SETTINGS WITH FIO2 40% SPO2 OF 97% , . ST 101 ON BEDSIDE MONITOR . UBALDO DRAINING VIA NEGATIVE PRESSURE WITH SEROSANGUINEOUS OUTPUT . FC DRAINING VIA GRAVITY , LEFT NGT CONNECTED TO LOW INTERMITTENT SUCTION WITH GREENISH OUTPUT , LV PICC LINE WITH NEOSYNEPRINE @ 3MNCG/KG/MIN , LEVOPHED @ 0.5 MCG/KG/MIN ,DIPRIVAN @ 45MCG/KG/MIN , 2 AMPS NA BICARB + 1L D5W @ 100ML/HR INFUSING WELL .S/P HD 500ML OUT ,BED ON LOWEST POSITION AND LOCKED SIDE RAILS UP X2 WILL CONT TO MONITOR
--- NOTE | 2021-03-13 19:24 | NUR ---
LATENT PRINT EXAMINER NOTES PATIENT SEDATED , RESPONSIVE TO DEEP PAIN STIMULI , PUPILS ARE SLUGGISH , COUGH AND GAG REFLEX PRESENT , TOLERATING CURRENT VENT SETTINGS WITH SPO2 OF 97% , ETT 7.5/[address] 101 ON BEDSIDE MONITOR . UBALDO DRAINING VIA NEGATIVE PRESSURE WITH SEROSANGUINEOUS OUTPUT . FC DRAINING VIA GRAVITY , LEFT NGT DRAINING VIA LOW INTERMITTENT SUCTION WITH GREENISH OUTPUT , LV PICC LINE WITH NEOSYNEPRINE @ 3MNCG/KG/MIN , LEVOPHED @ 0.5 MCG/KG/MIN ,DIPRIVAN @ 45MCG/KG/MIN , 2 AMPS NA BICARB @ 100ML/HR INFUSING WELL .S/P HD 500ML OUT , REPORT GIVEN TO MAYTE FOR CONTINUITY OF CARE
[2021-03-13] MEDS: FLUCONAZOLE IN NS,PREMIX 200 MG in PREMIX 1 EA IV SCH (19:44)
[2021-03-14] VITALS (94 sets, daily range): BP systolic 70–147; BP diastolic 37–83
--- NOTE | 2021-03-14 00:39 | NUR ---
PT ON BED STILL SEDATED ON VENT,SETTING PER MD FIO2 40% SPO2 98% NO SIGN OF ANY RESPIRATORY DISTRESS, NO PAIN NOTED SILL ON GUCCI @ 3MCG/KG/MIN AND LEVOPED @ 0.3 MCG/KG/MIN WITH CURRENT BP 111/63 HR 99 TEMP 99.6 SAFETY MEASURE MAINTAINED WILL CONT TO MONITOR THE PT
[2021-03-14] MEDS: Sodium Bicarbonate 100 MEQ in IV D5W 1,000 ML IV SCH (01:02)
[2021-03-14] MEDS: PROPOFOL 100 ML IV PRN ×3 (02:02→08:35)
[2021-03-14] MEDS: PHENYLEPHRINE 100 MG in IV NS 0.9% 240 ML IV PRN ×5 (03:48→21:30)
[2021-03-14 04:37] LABS: BASOPHILS # (AUTO) 0.1 K/uL (0.0-0.2); BASOPHILS % (AUTO) 0.4 % (0.0-2.0); EOSINOPHILS % (AUTO) 0.6 % (0.0-6.0); HEMATOCRIT 31 % (39-51); HEMOGLOBIN 10.8 g/dL (13.5-17.5); LYMPHOCYTES # (AUTO) 1.2 K/uL (0.8-4.8); LYMPHOCYTES % (AUTO) 7.6 % (20.0-44.0); MEAN CORPUSCULAR HGB CONC 35 g/dl (31.0-36.0); MEAN CORPUSCULAR VOLUME 87 fL (80-96); MONOCYTES # (AUTO) 0.4 K/uL (0.1-1.30); MONOCYTES % (AUTO) 2.7 % (2.0-12.0); NEUTROPHILS # (AUTO) 13.7 K/uL (1.8-8.9); NEUTROPHILS % (AUTO) 88.7 % (43.0-81.0); RED BLOOD CELL COUNT(AUTO) 3.53 MIL/uL (4.5-6.0); WHITE BLOOD COUNT (AUTO) 15.4 K/uL (4.3-11.0)
[2021-03-14 04:49] LABS: PLATELET COUNT (AUTO) 30 K/uL (150-450)
[2021-03-14 04:51] LABS: CALCIUM, SERUM 6.1 mg/dL (8.5-10.1); MAGNESIUM 1.9 mg/dL (1.8-2.4); POTASSIUM 3.5 mmol/L (3.5-5.1)
[2021-03-14] MEDS: METOCLOPRAMIDE HCL 10 MG/2 ML VIAL IV SCH ×4 (05:09→23:29)
[2021-03-14] MEDS: INSULIN REGULAR, HUMAN 100 UNIT/ML 3 ML VIAL SQ PRN ×3 (05:24→23:30)
[2021-03-14] MEDS: BLOOD SUGAR DIAGNOSTIC 1 EACH STRIP IN SCH ×4 (05:24→23:29)
[2021-03-14 05:36] LABS: BAND % (MANUAL) 12 % (0.0-5.0); BASOPHILS % (MANUAL) 0 % (0.0-2.0); EOSINOPHILS % (MANUAL) 1 % (0-4); LYMPHOCYTES % (MANUAL) 4 % (16-48); METAMYELOCYTES % 1 % (0-0); MONOCYTES % (MANUAL) 5 % (0-11.0); NEUTROPHILS % (MANUAL) 77 (42-76)
--- NOTE | 2021-03-14 07:11 | NUR ---
PT STILL ON BED SEDATED,ON VENT/ SETTING PER MD FIO2 50% SPO2 97% NO SIGN OF ANY DISTRESS NO PAIN NOTED, STILL ON PRESSOR ALEXANDRA @3 MCG/KG/MIN LEVO @ 0.3 MCG/KG/MIN, DIPRIVAN @ 45 MCG/KG/MIN AND NaHCO3 @ 100 ML/HR NO SIGNIFICANT CHANGES ON CONDITION NOTED LATEST TEMP 99.6 OFF ON COOLING BLANKET, BED ON LOWEST POSITION AND LOCKED SIDE RAILS UP X2 CALL LIGHT WITHIN REACH WILL ENDORSED TO AM SHIFT NURSE
--- NOTE | 2021-03-14 07:30 | NUR ---
BLINDSTITCH HEMMER OPENING NOTES SEDATED PT LYING IN BED SEMIFOWLER'S ON VENT SETTING PER MD ORDER: ETT 7.5/20, AC 28, TV 600, FIO2 50%, PEEP 5; TOLERATING WELL SPO2 99%, BREATHING EVEN AND UNLABORED, NO S/SOF RESP DISTRESS AT THIS TIME. PT SR IN 90s ON BEDSIDE MONITOR. PT HAS POST OP ABD WOUND WITH C/D/I DRSG, UBALDO DRAIN NOTED, SEROSANGUINEOUS DRAINAGE. PT HAS LV PICC FLSUHED, PATENT AND INTACT, CURRENTLY RUNNING DIPRIVAN @45MCG/KG/MIN, GUCCI @ 3 MCG/KG/MIN, LEVO @ 0.3 MCG/KG/MIN, AND SODIUM BICARB @ 100 ML/HR; PT BP CURRENTLY STABLE. PT LAC FLUSHED AND INTACT. PT RUJ HD CATH INTACT WELL. PT BUE AND BLE EDEMA NOTED. LEFT NGT CONNECTED TO LOW INTERMITTENT SUCTION. PT ISRAEL CATH DRAINING MINIMAL AMOUNTS OF DARK AURA URINE VIA GRAVITY. PT TEMP OF 99.3 F. ALL PT SAFETY PRECAUTIONS IN PLACE. WILL CONT TO MONITOR Addendum: 03/14/21 at 1856 by ALISSA POLLOCK RN NGT AUSCULTATED FOR POSITIVE PLACEMENT
--- NOTE | 2021-03-14 07:47 | NUR ---
RT Pt received orally intubated on mechanical ventilation with noted settings. Vent is plugged into red outlet with BVM by bedside. No SOB or respiratory distress noted. Plan is to continue with current respiratory care orders. Addendum: 03/14/21 at 1710 by TOLU KENNEDY RT Amended: Links added.
[2021-03-14 08:21] LABS: ABG BASE EXCESS 0.4 mmol/L; ABG OXYGEN SATURATION 95.5 % (92.0-98.5); ABG PCO2 30.8 mmHg (35.0-45.0); ABG PH 7.493 (7.350-7.450); ABG PO2 80.2 mmHg (75.0-100.0); AaDO2 234.2 mmHg; COHb 0.3 % (0.5-1.5); MetHb 0.2 % (0.0-1.5); PEEP,BG 5 cm H2O; SITE, ABG Right Radial; VT, ABG 600 mL
[2021-03-14] MEDS: PANTOPRAZOLE 40 MG VIAL IV SCH ×2 (08:25→20:33)
[2021-03-14] MEDS: MEROPENEM 1 G in IV NS 0.9% 100 ML IV SCH ×2 (08:25→20:33)
--- NOTE | 2021-03-14 09:30 | NUR ---
RN NOTE REAL ESTATE LEASING AGENT RISHABH VALENTE AWARE OF PT'S PLT OF 30. NO SIGNS OF BLEEDING NOTED
[2021-03-14] MEDS ORDERED: Sodium Phosphate 30 MMOL in IV NS 0.9% 250 ML IV SCH (11:00)
--- NOTE | 2021-03-14 11:00 | NUR ---
RN NOTE: SEDATION VACATION PT SEDATION VACATION STARTED AT 1000. PT UNABLE TO OPEN EYES OR SQUEEZE MY FINGERS WITH HANDS BILATERALLY. PT NOT RESPONSIVE. TOLERATING WELL, NO TACHYPNEA OR DISTRESS NOTED. WILL CONT TO MONITOR
--- NOTE | 2021-03-14 11:02 | NUR ---
RT ET tube advanced 2cm per Dr. Hannah orders. Equal bilateral breath sounds and chest rise noted. No SOB or respiratory distress noted. Addendum: 03/14/21 at 1148 by TOLU KENNEDY RT Amended: Links added.
[2021-03-14 13:29] LABS: D-DIMER 21.42 mg/L(FEU (0.17-0.50)
[2021-03-14 13:32] LABS: IRON, SERUM 89 ug/dl (50-175); TOTAL IRON BINDING CAPACITY 64 ug/dl (250-450)
[2021-03-14 13:38] LABS: FERRITIN 10537 ng/mL (8-388)
--- NOTE | 2021-03-14 14:00 | NUR ---
RN NOTE PT STILL ON SEDATION VACATION. UNABLE TO OPEN EYES SPONTANEOUSLY OR TO PAINFUL STIMULI. PT UNABLE TO FOLLOW COMMANDS. PT WITHDRAWS TO PAINFUL STIMULI. NO RESP DISTRESS OR TACHYPNEA NOTED, VITALS STABLE. WILL CONT TO MONITOR
[2021-03-14] MEDS: NOREPINEPHRINE 32 MG in IV NS 0.9% 218 ML IV PRN ×2 (15:54→17:30)
[2021-03-14 16:56] LABS: BILIRUBIN,DIRECT 1.4 mg/dL (0.0-0.2); TOTAL PROTEIN, SERUM 4.1 g/dL (6.4-8.2)
[2021-03-14 17:00] LABS: ALBUMIN 1.1 g/dL (3.4-5.0)
--- NOTE | 2021-03-14 17:15 | NUR ---
RN NOTE ALBUMIN LEVEL 1.1. PROFESSIONAL SERVICES CONSULTANTRISHABH AWARE
--- NOTE | 2021-03-14 18:46 | NUR ---
GLASS TINTER CLOSING NOTE PT ABOUT TO START DIALYSIS. PT ON VENT SETTING PER MD ORDER: ETT 7.5/20, AC 28, TV 550, FIO2 50%, PEEP 5; TOLERATING WELL SPO2 100%. PT STILL OFF OF DIPRIVAN, STILL SEDATED AND UNABLE TO OPEN EYES SPONTANEOUSLY OR TO PAINFUL STIMULI, UNABLE TO SQUEEZE HANDS BILATERALLY, NOT RESPONSIVE. PT CURRENTLY INFUSING IN LV PICC GUCCI @ 3 MCG/KG/MIN AND LEVO@ 0.1 MCG/KG/MIN. PT TEMP OF 98.9 F. NO OTHER CHANGES TO PT DURING SHIFT. ALL PT SAFETY PRECAUTIONS IN PLACE. WILL ENDORSE ANDREW TO ONCOMING NURSE
--- NOTE | 2021-03-14 19:15 | NUR ---
RECEIVED PATIENT ON COMATOSE STAG , PUPILS ARE SLUGGISH ,GAG REFLEX PRESENT , ETT 7.[address] TOLERATING CURRENT VENT SETTINGS WITH FIO2 50% SPO2 OF 97% , . SR 100'S ON BEDSIDE MONITOR . UBALDO DRAINING VIA NEGATIVE PRESSURE WITH SEROSANGUINEOUS OUTPUT . FC DRAINING VIA GRAVITY , LEFT NGT CONNECTED TO LOW INTERMITTENT SUCTION WITH GREENISH OUTPUT , LV PICC LINE WITH NEOSYNEPRINE @ 3MNCG/KG/MIN , LEVOPHED @ 0.1 MCG/KG/MIN INFUSING WELL, CURRENTLY UNDERGOING HD, HD NURSE AT BEDSIDE V/S STABLE, HAVE BILATERAL WRIST RESTRAINTS CIRCULATION WILL BE MONITORED REGULARLY ,BED ON LOWEST POSITION AND LOCKED SIDE RAILS UP X2 WILL CONT TO MONITOR
[2021-03-14] MEDS: FLUCONAZOLE IN NS,PREMIX 200 MG in PREMIX 1 EA IV SCH (19:49)
[2021-03-15] VITALS (97 sets, daily range): BP systolic 89–148; BP diastolic 14–77
[2021-03-15] MEDS: PROPOFOL 100 ML IV PRN ×3 (02:03→20:27)
--- NOTE | 2021-03-15 02:10 | NUR ---
PT IS SO TACHYPNIC AFTER THE BED BATH, COUGHING AND BREATHING OVER THE VENT, STARTED PROPOFOL TITRATE ORDER,CHARGE NURSE MADE AWARE
[2021-03-15] MEDS: HYDROMORPHONE 1 MG/1 ML DISP.SYRIN IV PRN (02:17)
[2021-03-15] MEDS: PHENYLEPHRINE 100 MG in IV NS 0.9% 240 ML IV PRN ×5 (02:23→20:33)
[2021-03-15 04:34] LABS: BASOPHILS % (AUTO) 0.4 % (0.0-2.0); EOSINOPHILS % (AUTO) 0.4 % (0.0-6.0); HEMATOCRIT 27 % (39-51); HEMOGLOBIN 9.4 g/dL (13.5-17.5); LYMPHOCYTES # (AUTO) 0.9 K/uL (0.8-4.8); LYMPHOCYTES % (AUTO) 8.3 % (20.0-44.0); MEAN CORPUSCULAR HGB CONC 34 g/dl (31.0-36.0); MEAN CORPUSCULAR VOLUME 87 fL (80-96); MONOCYTES # (AUTO) 0.4 K/uL (0.1-1.30); MONOCYTES % (AUTO) 3.6 % (2.0-12.0); NEUTROPHILS % (AUTO) 87.3 % (43.0-81.0); RED BLOOD CELL COUNT(AUTO) 3.14 MIL/uL (4.5-6.0); WHITE BLOOD COUNT (AUTO) 11.5 K/uL (4.3-11.0)
[2021-03-15 04:41] LABS: CALCIUM, SERUM 6.9 mg/dL (8.5-10.1); CREATININE 5.9 mg/dL (0.6-1.3); MAGNESIUM 2.2 mg/dL (1.8-2.4); POTASSIUM 4.3 mmol/L (3.5-5.1)
[2021-03-15 05:05] LABS: PLATELET COUNT (AUTO) 33 K/uL (150-450)
[2021-03-15 05:31] LABS: BAND % (MANUAL) 4 % (0.0-5.0); LYMPHOCYTES % (MANUAL) 6 % (16-48); METAMYELOCYTES % 2 % (0-0); MONOCYTES % (MANUAL) 6 % (0-11.0); MYELOCYTES % 1 % (0-0); NEUTROPHILS % (MANUAL) 81 (42-76)
[2021-03-15] MEDS: METOCLOPRAMIDE HCL 10 MG/2 ML VIAL IV SCH ×4 (05:31→23:45)
[2021-03-15] MEDS: INSULIN REGULAR, HUMAN 100 UNIT/ML 3 ML VIAL SQ PRN (05:40)
[2021-03-15] MEDS: BLOOD SUGAR DIAGNOSTIC 1 EACH STRIP IN SCH ×4 (05:40→23:45)
--- NOTE | 2021-03-15 07:30 | NUR ---
ICU/RN PT IS INTUBATED ON THE VENT AC MODE, FIO2-50%,SAT O2-95%.SEDATED WITH DIPRIVAN .REACTIVE ON PAIN STIMULATION.ON 2 PRESSORS.T-99.8.SINUS RHYTHM ON MONITOR.PT IS NPO.POST EXP LAP,SMALL BOWEL RESECTION WITH PERITONITIS,RIGHT SIDE UBALDO DRAINING WITH SMALL AMOUNT OF S/S DRAINAGE.NG TUBE CONNECTED TO LOW INTERMEDIATE SUCTION WITH MINIMAL AMOUNT OF GREEN GASTRIC SECRETIONS.ACUTE RENAL FAILURE.HD CATH ON THE RIGHT IJ. F/C IN PLACE WITH A MINIMAL AMOUNT OF AURA URINE. GENERALIZED EDEMA PRESENT.LABS REVIEW ,MD NOTIFIED.SUCTION PROVIDED.REPOSITION FOR COMFORT.
--- NOTE | 2021-03-15 07:50 | NUR ---
RT PATIENT REC'D ORALLY INTUBATED ON [facility] VENT WITH ORDERED SETTINGS ROE WELL. PER DR VO VT LOWERED TO 500. AIRWAY SUCTIONED WITH MOD BROWN MUCOUS PLUGS. VENT ALARMS CHECKED + AUDIBLE. CLOVISU BAG AT HOB. Addendum: 03/15/21 at 1754 by TYLOR WINKLER RT Amended: Links added.
[2021-03-15 08:16] LABS: ABG BASE EXCESS 1.4 mmol/L; ABG OXYGEN SATURATION 97.1 % (92.0-98.5); ABG PCO2 33.7 mmHg (35.0-45.0); ABG PH 7.482 (7.350-7.450); ABG PO2 99.4 mmHg (75.0-100.0); AaDO2 219.2 mmHg; COHb 0.3 % (0.5-1.5); MetHb 0.4 % (0.0-1.5); O2Hb 96.4 % (94.0-97.0); SITE, ABG Right Radial
[2021-03-15] MEDS: MEROPENEM 1 G in IV NS 0.9% 100 ML IV SCH ×2 (08:39→20:40)
[2021-03-15] MEDS: PANTOPRAZOLE 40 MG VIAL IV SCH ×2 (08:39→21:08)
--- NOTE | 2021-03-15 09:00 | NUR ---
ICU/RN DUE MEDS ARE GIVEN ORDERED.
--- NOTE | 2021-03-15 10:00 | NUR ---
ICU/RN SEDATION VACATION PROVIDED.PT IS NOT FOLLOWS COMMAND,NOT OPEN HIS EYES,REACTIVE ON PAIN STIMULATION.TACHYPNEIC AND TACHYCARDIC.DIPRIVAN RESTARTED.DR DELGADO SEEN THE PT .OK TO START TPN.PHARMACY NOTIFIED.REPOSITION FOR COMFORT.
[2021-03-15] MEDS ORDERED: TPN/PPN PER PHARMACY XX PRN (10:30)
[2021-03-15] MEDS: MORPHINE SULFATE INJ 2 MG/ML DISP.SYRIN IV PRN ×2 (10:57→18:20)
[2021-03-15] MEDS ORDERED: NOREPINEPHRINE 8 MG in IV NS 0.9% 242 ML IV PRN (11:30)
[2021-03-15] MEDS ORDERED: TPN BAG #1 IV SCH (14:00)
[2021-03-15] MEDS ORDERED: NOREPINEPHRINE 8 MG in IV NS 0.9% 250ML IV PRN (19:00)
[2021-03-15] MEDS: VANCOMYCIN 500 MG in IV D5W 100 ML IV PRN (19:04)
[2021-03-15] MEDS: FLUCONAZOLE IN NS,PREMIX 200 MG in PREMIX 1 EA IV SCH (20:48)
[2021-03-16] VITALS (94 sets, daily range): BP systolic 84–157; BP diastolic 42–85
[2021-03-16] MEDS: PHENYLEPHRINE 100 MG in IV NS 0.9% 240 ML IV PRN ×5 (00:46→23:33)
[2021-03-16] MEDS: PROPOFOL 100 ML IV PRN ×7 (01:48→23:34)
[2021-03-16] MEDS: ACETAMINOPHEN 650 MG/SUPP.RECT RC PRN ×2 (03:30→14:43)
[2021-03-16 04:26] LABS: BASOPHILS % (AUTO) 0.2 % (0.0-2.0); EOSINOPHILS % (AUTO) 0.7 % (0.0-6.0); HEMATOCRIT 24 % (39-51); HEMOGLOBIN 8.1 g/dL (13.5-17.5); LYMPHOCYTES # (AUTO) 1.8 K/uL (0.8-4.8); LYMPHOCYTES % (AUTO) 11.5 % (20.0-44.0); MEAN CORPUSCULAR HGB CONC 34 g/dl (31.0-36.0); MEAN CORPUSCULAR VOLUME 87 fL (80-96); MONOCYTES # (AUTO) 0.5 K/uL (0.1-1.30); MONOCYTES % (AUTO) 3.2 % (2.0-12.0); NEUTROPHILS # (AUTO) 13.1 K/uL (1.8-8.9); NEUTROPHILS % (AUTO) 84.4 % (43.0-81.0); RED BLOOD CELL COUNT(AUTO) 2.72 MIL/uL (4.5-6.0); WHITE BLOOD COUNT (AUTO) 15.5 K/uL (4.3-11.0)
[2021-03-16 04:28] LABS: PLATELET COUNT (AUTO) 49 K/uL (150-450)
[2021-03-16 04:38] LABS: CALCIUM, SERUM 7.3 mg/dL (8.5-10.1); CREATININE 6.1 mg/dL (0.6-1.3); POTASSIUM 4.1 mmol/L (3.5-5.1)
[2021-03-16 05:09] LABS: BAND % (MANUAL) 6 % (0.0-5.0); LYMPHOCYTES % (MANUAL) 10 % (16-48)
[2021-03-16 05:10] LABS: METAMYELOCYTES % 1 % (0-0); MONOCYTES % (MANUAL) 3 % (0-11.0); MYELOCYTES % 1 % (0-0); NEUTROPHILS % (MANUAL) 79 (42-76)
[2021-03-16] MEDS: METOCLOPRAMIDE HCL 10 MG/2 ML VIAL IV SCH ×4 (06:09→23:50)
[2021-03-16] MEDS: BLOOD SUGAR DIAGNOSTIC 1 EACH STRIP IN SCH ×4 (06:09→23:52)
--- NOTE | 2021-03-16 07:18 | NUR ---
RN RECEIVING NOTES RECEIVED PATIENT SEDATED AND ORALLY INTUBATED WITH MECHVENT SETTINGS ON AC 28 TV 500 FIO2 40% PEEP 5. NSR ON BEDSIDE MONITOR. NGT ON LOW INTERMITTENT SUCTION. ABDO DRESSING DRY AND INTACT WITH UBALDO DRAIN NOTED. ISRAEL DRAINING BY GRAVITY. LV PICC WITH TPN AT 40ML/HR, GUCCI AT 2.6MCG/KG/MIN, AND PROPOFOL AT 20MCG/KG/MIN. RIGHT IJ HD CATHETER NOTED. SAFETY CHECKS IN PLACE. WILL CONTINUE TO MONITOR.
[2021-03-16] MEDS: PANTOPRAZOLE 40 MG VIAL IV SCH ×2 (08:02→22:49)
[2021-03-16] MEDS: MEROPENEM 1 G in IV NS 0.9% 100 ML IV SCH ×2 (08:03→22:56)
[2021-03-16 08:07] LABS: *ANA ANTI-CENTROMERE B AB <0.2 AI (0.0-0.9); *ANA ANTI-DNA(DS) AB, QN <1 IU/mL (0-9); *ANA ANTI-JO-1 <0.2 AI (0.0-0.9); *ANA ANTICHROMATIN ANTIBODY <0.2 AI (0.0-0.9); *ANA RNP ANTIBODIES <0.2 AI (0.0-0.9); *ANA SJOGREN'S ANTI-SS-A <0.2 AI (0.0-0.9); *ANA SJOGREN'S ANTI-SS-B <0.2 AI (0.0-0.9); *ANAANTI-SCLERODERMA-70 AB <0.2 AI (0.0-0.9); *ANASMITH AB <0.2 AI (0.0-0.9); IMMUNOGLOBULIN A, SERUM 117 mg/dL (90-386); IMMUNOGLOBULIN G, SERUM 630 mg/dL (603-1613); IMMUNOGLOBULIN M, SERUM 45 mg/dL (20-172)
[2021-03-16 08:39] LABS: ABG BASE EXCESS 1.6 mmol/L; ABG OXYGEN SATURATION 97.4 % (92.0-98.5); ABG PCO2 35.2 mmHg (35.0-45.0); ABG PH 7.473 (7.350-7.450); ABG PO2 106.9 mmHg (75.0-100.0); AaDO2 137.8 mmHg; COHb 0.3 % (0.5-1.5); MetHb 0.2 % (0.0-1.5); O2Hb 96.9 % (94.0-97.0); SITE, ABG Right Radial; VENT MODE, BG AC 28 500 +5 40%
[2021-03-16 13:07] LABS: *SPE A/G RATIO 0.7 (0.7-1.7); *SPE ALBUMIN 1.5 g/dL (2.9-4.4); *SPE ALPHA-1-GLOBULIN 0.5 g/dL (0.0-0.4); *SPE ALPHA-2-GLOBULIN 0.7 g/dL (0.4-1.0); *SPE BETA GLOBULIN 0.4 g/dL (0.7-1.3); *SPE GLOBULIN, TOTAL 2.1 g/dL (2.2-3.9); *SPE M-SPIKE Not Observed g/dL (Not Observed); *SPEGAMMA GLOBULIN 0.5 g/dL (0.4-1.8)
[2021-03-16] MEDS ORDERED: TPN BAG #2 IV SCH (14:00)
--- NOTE | 2021-03-16 14:00 | NUR ---
RN NOTE PATIENT WAS RESTLESS AND TACHYPNEIC. MAX DOSE OF PROPOFOL INCREASED TO 100MCG/KG.
[2021-03-16] MEDS ORDERED: PROPOFOL 100 ML IV PRN (14:30)
[2021-03-16 16:36] LABS: OCCULT BLOOD STOOL POSITIVE (NEGATIVE)
[2021-03-16 17:00] LABS: MAGNESIUM 2.3 mg/dL (1.8-2.4); PHOSPHORUS 3.9 mg/dL (2.5-4.9)
--- NOTE | 2021-03-16 18:11 | NUR ---
RN CLOSING NOTES PATIENT REMAINS SEDATED AND ORALLY INTUBATED WITH MECHVENT SETTINGS ON AC 28 TV 500 FIO2 40% PEEP 5. NSR ON BEDSIDE MONITOR. NGT ON LOW INTERMITTENT SUCTION WITH NO OUTPUT. ABDO DRESSING DRY AND INTACT WITH UBALDO DRAIN EMPTYING 30MLS. ISRAEL DRAINED 180MLS. BOWELS MOVED AND SAMPLE SENT, + FOR OCCULT BLOOD. LV PICC WITH TPN AT 60ML/HR, GUCCI AT 2MCG/KG/MIN, AND PROPOFOL AT 50MCG/KG/MIN. RIGHT IJ HD CATHETER NOTED FOR HD AT 8PM. SAFETY CHECKS IN PLACE. WILL ENDORSE TO NIGHT RN FOR CONTINUITY OF CARE.
--- NOTE | 2021-03-16 19:30 | NUR ---
ASSISTANT MANAGER: RECEIVED PT ORALLY INTUBATED WT VENT SETTINGS ORDERED. NO ACUTE DISTRESS, NO EVIDENCE OF DISCOMFORT. CONTINUE ON DIPRIVAN DRIP AT 50MCG/KG/MIN FOR SEDATION, NEOSYNEPHRINE DRIP INCREASED TO 2.1 HEMODIALYSIS IS STARTED AT THIS TIME AND TPN AT 60ML/HR. SAFETY PRECAUTION NOTED. WILL CONTINUE TO MONITOR.
--- NOTE | 2021-03-16 20:24 | NUR ---
Received patient intubated on the [facility] vent. 7.5 ett secured at 22cm at the lip. AC 28, 500, 40%, +5. No respiratory distress noted tolerating vent settings. Sx'd small amt of thick chu secretions. Vent alarms set and audible. Ett cuff checked. Ambu bag at bedside. Continue the [facility] vent support. Addendum: 03/16/21 at 2025 by LINETTE ARCHER RT Amended: Links added.
--- NOTE | 2021-03-16 22:00 | NUR ---
SAP TRAINER: HEMODIALYSIS DONE WT 1L FLUID REMOVAL. NO ADVERSE CHANGES NOTED AT THIS TIME. WILL CONTINUE TO MONITOR.
[2021-03-16] MEDS: VANCOMYCIN 500 MG in IV D5W 100 ML IV PRN (22:25)
[2021-03-16] MEDS: FLUCONAZOLE IN NS,PREMIX 200 MG in PREMIX 1 EA IV SCH (22:48)
[2021-03-17] VITALS (97 sets, daily range): BP systolic 82–135; BP diastolic 39–74
[2021-03-17] MEDS: PROPOFOL 100 ML IV PRN ×10 (01:40→23:48)
[2021-03-17] MEDS: ACETAMINOPHEN 650 MG/SUPP.RECT RC PRN ×3 (02:16→20:28)
[2021-03-17 04:30] LABS: BASOPHILS # (AUTO) 0.1 K/uL (0.0-0.2); BASOPHILS % (AUTO) 0.2 % (0.0-2.0); EOSINOPHILS % (AUTO) 1.3 % (0.0-6.0); HEMATOCRIT 24 % (39-51); HEMOGLOBIN 8.5 g/dL (13.5-17.5); LYMPHOCYTES # (AUTO) 1.7 K/uL (0.8-4.8); LYMPHOCYTES % (AUTO) 7.1 % (20.0-44.0); MEAN CORPUSCULAR HGB CONC 36 g/dl (31.0-36.0); MEAN CORPUSCULAR VOLUME 89 fL (80-96); MONOCYTES # (AUTO) 1.1 K/uL (0.1-1.30); MONOCYTES % (AUTO) 4.6 % (2.0-12.0); NEUTROPHILS # (AUTO) 20.5 K/uL (1.8-8.9); NEUTROPHILS % (AUTO) 86.8 % (43.0-81.0); WHITE BLOOD COUNT (AUTO) 23.6 K/uL (4.3-11.0)
[2021-03-17 04:50] LABS: CALCIUM, SERUM 7.8 mg/dL (8.5-10.1); MAGNESIUM 2.1 mg/dL (1.8-2.4); PHOSPHORUS 3.6 mg/dL (2.5-4.9); POTASSIUM 4.3 mmol/L (3.5-5.1)
[2021-03-17] MEDS: METOCLOPRAMIDE HCL 10 MG/2 ML VIAL IV SCH ×4 (05:22→23:51)
[2021-03-17 05:24] LABS: PLATELET COUNT (AUTO) 44 K/uL (150-450)
[2021-03-17] MEDS: BLOOD SUGAR DIAGNOSTIC 1 EACH STRIP IN SCH ×3 (05:37→17:08)
[2021-03-17 06:19] LABS: BAND % (MANUAL) 6 % (0.0-5.0); EOSINOPHILS % (MANUAL) 2 % (0-4); LYMPHOCYTES % (MANUAL) 8 % (16-48); METAMYELOCYTES % 2 % (0-0); MONOCYTES % (MANUAL) 5 % (0-11.0); MYELOCYTES % 4 % (0-0); NEUTROPHILS % (MANUAL) 73 (42-76)
--- NOTE | 2021-03-17 06:50 | NUR ---
RETAIL PHARMACY TECHNICIAN: HAD 1 BOWEL MOVEMENT WT BLACK/TARRY STOOLS IN MODERATE AMT. GIVEN TYLENOL X1 FOR FEVER AND REMAINED WT LOW GRADE TEMP. THROUGHOUT THE SHIFT. BED BATH WT COOLING MEASURES RENDERED. CONTINUE ON GUCCI. AT 1.9 MCG/KG/MIN, PROPOFOL AT 55MCG/KG/MIN AND TPN BAG #3 AT 60ML/HR. SAFETY PRECAUTION NOTED AT ALL TIMES.
[2021-03-17] MEDS ORDERED: TPN BAG #3 IV SCH (07:00)
--- NOTE | 2021-03-17 07:35 | NUR ---
RN RECEIVING NOTES RECEIVED PATIENT SEDATED AND ORALLY INTUBATED WITH [facility] SETTINGS ON AC 28 TV 500 FIO2 40% PEEP 5. NSR ON BEDSIDE MONITOR. NGT ON LOW INTERMITTENT SUCTION. ABDO DRESSING DRY AND INTACT WITH UBALDO DRAIN NOTED. ISRAEL DRAINING BY GRAVITY. LV PICC WITH TPN AT 60ML/HR, GUCCI AT 1.9MCG/KG/MIN, AND PROPOFOL AT 55MCG/KG/MIN. RIGHT IJ HD CATHETER NOTED. SAFETY CHECKS IN PLACE. WILL CONTINUE TO MONITOR.
[2021-03-17] MEDS: PANTOPRAZOLE 40 MG VIAL IV SCH ×2 (08:03→20:29)
[2021-03-17] MEDS: MEROPENEM 1 G in IV NS 0.9% 100 ML IV SCH ×2 (08:32→20:29)
[2021-03-17] MEDS: PHENYLEPHRINE 100 MG in IV NS 0.9% 240 ML IV PRN ×2 (10:13→21:07)
[2021-03-17] MEDS: MICAFUNGIN SODIUM 100 MG in IV NS 0.9% 100 ML IV SCH (11:37)
--- NOTE | 2021-03-17 15:15 | NUR ---
RN NOTE MULTIPLE INCONSISTENCIES TO WHO IS IDENTIFIED NEXT OF KIN/EMERGENCY CONTACT. ENVIRONMENTAL SERVICES ASSOCIATE CONSULT ORDERED.
--- NOTE | 2021-03-17 15:21 | NUR ---
SS consult requested for Next of kin/ responsible alliance party: JAMES called the pt.'s sister, Radha Bliss [phone] who resides in [place] and she stated that her brother, Bola Bliss who resides in [place] is the next of Kin. However, per Radha, Bola has his hands full as he is the matrix inspector for their mother (91 years old with Dementia). Per Radha, she is the next oldest child and will be the responsible alliance party. JAMES requested to speak to Bola. Per Radha, she will have Bola call JAMES AYANNA. JAMES notified Artem PUGH. Radha stated that the pt.'s friends notified her of pt.'s condition and she Radha would like the pt.'s friends to be able to receive updates regarding pt.
--- NOTE | 2021-03-17 19:10 | NUR ---
RN CLOSING NOTES PATIENT REMAINS SEDATED AND ORALLY INTUBATED WITH MECHVENT SETTINGS ON AC 28 TV 500 FIO2 40% PEEP 5. NSR ON BEDSIDE MONITOR. NGT ON LOW INTERMITTENT SUCTION NO OUTPUT. ABDO DRESSING DRY AND INTACT WITH UBALDO DRAINING 30MLS. ISRAEL DRAINED 260MLS BY GRAVITY. LV PICC WITH TPN AT 60ML/HR, GUCCI AT 1.0MCG/KG/MIN, AND PROPOFOL AT 60MCG/KG/MIN. RIGHT IJ HD CATHETER NOTED. 300MLS REMOVED DURING DIALYSIS. SAFETY CHECKS IN PLACE. ENDORSED TO NIGHT RN FOR CONTINUITY OF CARE.
--- NOTE | 2021-03-17 19:25 | NUR ---
WAREHOUSE RECEIVING CLERK OPENING NOTES: RECEIVED SEDATED PT IN BED RESTING COMFORTABLY. PATIENT IN NO S/SX OF ACUTE DISTRESS AT THIS TIME. NO SOB NOTED. PATIENT'S BREATHING IS EVEN AND UNLABORED. PATIENT ON MECHANICAL VENT; SETTINGS PRESCRIBED; PT TOLERATED WELL. AMBU BAG AT BED SIDE ALARMS SET PER PROTOCOL AND AUDIBLE. VENT PLUGGED IN TO RED OUTLET. PATIENT ON TELE MONITORING READING SINUS RHYTHM HR IS @80s AT THE TIME OF RECEIVED. PATIENT CURRENTLY ON NPO. PT HAS NGT CONNECTED ON LOW INTERMITTENT SUCTION NO OUTPUT AT THE TIME OF RECEIVED. IV SITE ON R UA PICC LINE ; PATENT, INTACT AND FLUSHING WELL; NO S/S OF INFECTION OR INFILTRATION. PT ALSO HAS ALL RIGHT IJ HD CATHETER SECURED AND INTACT NO SIGNS OF INFECTION. WITH ABD DRESSING IN PLACE DRY AND INTACT ; WITH UBALDO DRAINING WITH REDDISH OUTPUT NOTED. AT THE TIME OF RECEIVED PT HAS A RUNNING TPN AT 60ML/HR. ALSO HAS GUCCI AT 0.9MCG/KG/MIN, AND PROPOFOL AT 60MCG/KG/MIN MONITORED AND TITRATED PER PROTOCOL. ISRAEL CATH IN PLACE, MINIMAL URINE OUTPUT NOTED YELLOW IN COLOR. SAFETY MEASURES HAVE BEEN PROVIDED AND IMPLEMENTED. PATIENT BED ALARM IS ON. HEAD OF BED ELEVATED. BED IS LOCKED, IN LOWEST POSITION AND SIDE RAILS UP. CALL LIGHT WITHIN REACH OF THE PATIENT. APPLICABLE ISOLATION PRECAUTIONS IN PLACE. WILL CONTINUE TO MONITOR AND REASSESS FOR ANY CHANGES AND WILL CARRY OUT ANY ONGOING AND ACTIVE MD ORDER.
--- NOTE | 2021-03-17 19:35 | NUR ---
RN NOTES CALLED RADIOLOGY DEPT TO FOLLOW UP FOR THE SCHEDULED CT ( CT HEAD WO CONTRAST AND CT ABD W WO CONTRAST) STAFF SAID CALLBACK AFTER 2 HOURS AT THIS TIME THEY CANT ACCOMMODATE. BULL GANG SUPERVISOR MADE AWARE. WILL CALLBACK FOR FOLLOW THROUGH.
--- NOTE | 2021-03-17 20:00 | NUR ---
RN NOTES DURING PM PATIENT CARE, NOTED SKIN ISSUE ON THE COCCYX (STAGE 2 PRESSURE ULCER; MEASURING [id number]. PICTURE TAKEN AND PLACED IN THE CHART. KEPT CLEAN AND DRY. POLE TRUCK DRIVER MADE AWARE. ALSO FACILITATED PLACEMENT OF [employer]/SPECIALTY MATTRESS.
--- NOTE | 2021-03-17 20:30 | NUR ---
RN NOTES NOTED PT'S TEMP IS AT 100.4@2000; PRN MEDICATION GIVEN AND COOLING MEASURES RENDERED. SATELLITE DISH TECHNICIAN MADE AWARE. WILL CONTINUE TO MONITOR AND ASSESS THROUGHOUT THE SHIFT.
--- NOTE | 2021-03-17 21:37 | NUR ---
RN NOTES 2ND CALL TO RADIOLOGY DEPT; FOLLOWED UP FOR THE SCHEDULED CT ( CT HEAD WO CONTRAST AND CT ABD W WO CONTRAST) SPOKE WITH TISH HE MENTIONED THEY CANT ACCOMMODATE TONIGHT AND NEEDS TO BE DONE DEBBIE MORNING @ 7AM EARLIEST. BUT ADVISED TO CALL IN THE MORNING FOR CONFIRMATION. HAT BRIM AND CROWN LAMINATING OPERATOR MADE AWARE.
--- NOTE | 2021-03-17 23:00 | NUR ---
RN NOTES NO CHANGE IN PATIENT CONDITION AT THIS TIME PATIENT VITALS STABLE, NO SIGNS OF ACUTE RESPIRATORY DISTRESS. [place] TOWER LOADER MADE AWARE. WILL CONTINUE TO MONITOR AND REASSESS FOR ANY CHANGES THROUGHOUT THE SHIFT.
[2021-03-17] MEDS ORDERED: TPN BAG #4 IV SCH (23:40)
[2021-03-18] VITALS (100 sets, daily range): BP systolic 79–184; BP diastolic 38–97
[2021-03-18] MEDS: BLOOD SUGAR DIAGNOSTIC 1 EACH STRIP IN SCH ×4 (00:03→17:32)
[2021-03-18] MEDS: INSULIN REGULAR, HUMAN 100 UNIT/ML 3 ML VIAL SQ PRN ×2 (00:04→05:31)
--- NOTE | 2021-03-18 00:05 | NUR ---
RN NOTES NOTED PT'S TEMP IS AT 100@0000; COOLING MEASURES RENDERED. GLOVE TAGGER WELL AWARE. WILL CONTINUE TO MONITOR AND ASSESS THROUGHOUT THE SHIFT
[2021-03-18] MEDS: PROPOFOL 100 ML IV PRN ×5 (01:46→11:30)
--- NOTE | 2021-03-18 04:00 | NUR ---
RN NOTES NO NOTED CHANGES IN PATIENT CONDITION AT THIS TIME; PATIENT VITALS STABLE, NO SIGNS OF ACUTE RESPIRATORY DISTRESS. AM PATIENT CARE RENDERED. SAUSAGE STRINGER MADE AWARE. WILL CONTINUE TO MONITOR AND REASSESS FOR ANY CHANGES THROUGHOUT THE SHIFT.
[2021-03-18 04:22] LABS: BASOPHILS # (AUTO) 0.1 K/uL (0.0-0.2); BASOPHILS % (AUTO) 0.3 % (0.0-2.0); EOSINOPHILS % (AUTO) 1.3 % (0.0-6.0); HEMATOCRIT 25 % (39-51); HEMOGLOBIN 9.1 g/dL (13.5-17.5); LYMPHOCYTES # (AUTO) 1.6 K/uL (0.8-4.8); LYMPHOCYTES % (AUTO) 6.6 % (20.0-44.0); MEAN CORPUSCULAR HGB CONC 36 g/dl (31.0-36.0); MEAN CORPUSCULAR VOLUME 90 fL (80-96); MONOCYTES # (AUTO) 0.7 K/uL (0.1-1.30); MONOCYTES % (AUTO) 2.8 % (2.0-12.0); NEUTROPHILS # (AUTO) 22.2 K/uL (1.8-8.9); PLATELET COUNT (AUTO) 58 K/uL (150-450); RED BLOOD CELL COUNT(AUTO) 2.78 MIL/uL (4.5-6.0); WHITE BLOOD COUNT (AUTO) 24.9 K/uL (4.3-11.0)
[2021-03-18 04:34] LABS: CALCIUM, SERUM 7.2 mg/dL (8.5-10.1); CREATININE 4.5 mg/dL (0.6-1.3); MAGNESIUM 2.1 mg/dL (1.8-2.4); PHOSPHORUS 4.7 mg/dL (2.5-4.9); POTASSIUM 4.3 mmol/L (3.5-5.1)
[2021-03-18] MEDS: METOCLOPRAMIDE HCL 10 MG/2 ML VIAL IV SCH ×4 (05:14→23:24)
[2021-03-18 05:36] LABS: BAND % (MANUAL) 11 % (0.0-5.0); BASOPHILS % (MANUAL) 1 % (0.0-2.0); EOSINOPHILS % (MANUAL) 2 % (0-4); LYMPHOCYTES % (MANUAL) 3 % (16-48); METAMYELOCYTES % 2 % (0-0); MONOCYTES % (MANUAL) 8 % (0-11.0); NEUTROPHILS % (MANUAL) 73 (42-76)
--- NOTE | 2021-03-18 07:04 | NUR ---
RN CLOSING NOTE: PATIENT REMAINS IN ROOM IN NO SIGNS OF RESPIRATORY DISTRESS, PATIENT STILL ON MECH VENT WITH SETTINGS PRESCRIBED ;TOLERATING WELL SATURATING @ 99% OF SP02 AT THE END OF SHIFT. PT STILL ON TPN @75ML/HR, WITH GUCCI RUNNING @ 0.7MCG/KG/MIN AND DIPRIVAN @60MCG/KG/MIN. SAFETY MEASURES IMPLEMENTED, BED IN LOWEST POSITION, LOCKED, SIDE RAILS UP, CALL LIGHT WITHIN REACH. ALL NEEDS AND ORDERS ADDRESSED DURING THE SHIFT. IV ACCESS MAINTAINED INTACT, SECURED AND FLUSHING WELL. ALL DUE MEDS GIVEN ORDERED & SCHEDULED ; PATIENT TOLERATED WELL. PATIENT KEPT CLEAN AND COMFORTABLE WITHIN THE SHIFT. PATIENT ENDORSED TO INCOMING SHIFT RN WITH STABLE VITAL SIGN AND FOR CONTINUITY OF CARE.
--- NOTE | 2021-03-18 08:00 | NUR ---
rn notes RECEIVED PATIENT IN THE BED, DNR. ETT/MECHANICAL VENT. PATIENT RESPIRATION 30, ETT SETTING ARE FIO2-40%, PEEP-5. PATIENT OBESE, RESPIRATORY FAILURE, HAS SACRAL DEEP TISSUE INJURY IN EVOLUTION. GLUTEAL CREASE AREA IS MOIST AND PT IS HAVING BLOODY STOOL. DR DELGADO AWARE. INFUSING DIPRIVAN 60MCG/KG/HR, TPN 75ML/HR, NEOSYNEPHRINE 0.7MCG/KG/HR, AND TKO. .PATIENT HAS ABDOMINAL INCISION, DRESSING INTACT, UBALDO-10ML OUTPUT. NGT INTERMITTENT SUCTION, ISRAEL DRAINING VIA GRAVITY. WILL FOLLOW UP.
--- NOTE | 2021-03-18 08:41 | NUR ---
WOUND CARE CONSULT: PT SEEN FOR SACRAL DEEP TISSUE INJURY IN EVOLUTION. GLUTEAL CREASE AREA IS MOIST AND PT IS HAVING BLOODY STOOL. DR DELGADO AWARE. PT NOTED TO HAVE MULTIPLE CO-MORIBIDITIES INCLUDING OBESITY, RESPIRATORY FAILURE (CURRENTLY INTUBATED) AND RENAL FAILURE (ON DIALYSIS). DUE TO MULTIPLE CO-MORBIDITIES, FURTHER SKIN BREAKDOWN MAY BE UNAVOIDABLE. RECOMMENDATIONS MADE FOR SKIN PROTECTION AND WOUND CARE. DISCUSSED WITH NURSING STAFFAND RIVETING MACHINE OPERATOR AUTOMATIC. PT IS ON FIRST STEP EMIL GREENWOOD MD IN AGREEMENT WITH PLAN OF CARE. Addendum: 03/18/21 at 0843 by RISA HALE WNDNU Amended: Links added.
[2021-03-18] MEDS: MEROPENEM 1 G in IV NS 0.9% 100 ML IV SCH ×2 (08:46→21:06)
--- NOTE | 2021-03-18 08:50 | NUR ---
rn notes Seen patient preschool assistant director Dr Tucker and get TO order Fentanyl drip 50mcg/kg/hr per md order. order taken and carried out.
[2021-03-18] MEDS: PANTOPRAZOLE 40 MG VIAL IV SCH ×2 (09:01→21:05)
[2021-03-18] MEDS: MORPHINE SULFATE INJ 2 MG/ML DISP.SYRIN IV PRN (09:03)
--- NOTE | 2021-03-18 09:03 | NUR ---
RN NOTES ADMINISTERED MORPHINE SULFATE 2ML/HR IV PUSF FOR AMDOMINAL PAIN , BP 124/68, P-91, R-35. PATIENT HAS BLACL MARY STOOL, SURGEON Dr DELGADO AWARE OF. ALSO SEEN PATIENT VIA WOUND NURSE, ASSIST TURN A REPOSTION Q 2 HR WILL MONITORING.
[2021-03-18] MEDS ORDERED: CT SWABBABLE VALVE TRANS SET 1 EA INFUS.SET MC ONE (09:55)
[2021-03-18] MEDS ORDERED: IOHEXOL-300 100 ML VIAL IV ONE (09:55)
--- NOTE | 2021-03-18 10:20 | NUR ---
RN NOTES CT HEAD, ABDOMEN, AND PELVIC DONE.
[2021-03-18] MEDS: MICAFUNGIN SODIUM 100 MG in IV NS 0.9% 100 ML IV SCH (11:30)
[2021-03-18] MEDS: FENTANYL CITRAT IV 2,500 MCG in IV NS 0.9% 200 ML IV PRN ×2 (12:53→21:19)
--- NOTE | 2021-03-18 12:53 | NUR ---
RN NOTES STARTED FENTANYL DRIP AT TIS TIME 25MCG/KG/HR.
[2021-03-18] MEDS ORDERED: TPN BAG #5 IV SCH (13:00)
[2021-03-18] MEDS: PHENYLEPHRINE 100 MG in IV NS 0.9% 240 ML IV PRN (13:02)
--- NOTE | 2021-03-18 13:22 | NUR ---
SS Note: SW received call from pt.'s eldest brother, Augusto Bliss [phone] stating that he would like his sister, Radha Bliss [phone] to be the point of contact at this time as he has his hands full caring for elderly mother. Noted. Per Augusto, Radha will be keeping the family informed and they can make decisions together for Tx. if needed.
--- NOTE | 2021-03-18 13:57 | NUR ---
RN NOTES PATIENT GETTING HEMODIALYSIS AT THIS TIME, SEEN Dr TRIANA
--- NOTE | 2021-03-18 14:55 | NUR ---
RN NOTES PT TRIGLYCERIDE- 1177 AT THIS TIME, LEFT MASSAGE FOR CHIEF PRIVACY OFFICER DR RODRIGUEZ WAITING FOR RESPONDING.
[2021-03-18] MEDS ORDERED: FENTANYL CITRAT IV 2,500 MCG in IV NS 0.9% 200 ML IV PRN (15:30)
[2021-03-18 15:33] LABS: BILIRUBIN,DIRECT 1.3 mg/dL (0.0-0.2); BILIRUBIN,TOTAL 1.7 mg/dL (0.2-1.0); TOTAL PROTEIN, SERUM 4.7 g/dL (6.4-8.2)
[2021-03-18 16:12] LABS: ALBUMIN 1.1 g/dL (3.4-5.0)
--- NOTE | 2021-03-18 16:13 | NUR ---
rn notes Get call from lab albumin level is 1.1.
[2021-03-18] MEDS: MIDAZOLAM HCL 100 MG in IV NS 0.9% 80 ML IV PRN (16:36)
--- NOTE | 2021-03-18 16:40 | NUR ---
rn notes HD finish at this time output was 1800 ml.
[2021-03-18] MEDS: VANCOMYCIN 500 MG in IV D5W 100 ML IV PRN (17:31)
--- NOTE | 2021-03-18 18:45 | NUR ---
RN NOTES PM CARE , SUCTION, MOUTH CARE DONE , DUE MEDICATION ADMINISTERED, BS-90MG/DL. PATIENT SEDATED WITH FENTANYL 135MCG/HR, VERSED 2MG/HR,,[id number], AND GUCCI 0.3 MCG/KG/HR. DRAINED UBALDO-20ML, ISRAEL DRAINING VIA GRAVITY. ELEVATED BILATERAL LOWER AND UPPER EXTREMITIES USING PILLOWS. KEEP HOB ELEVATED. ENDORSED ONCOMING NURSE FOLLOW PLAN OF CARE.
--- NOTE | 2021-03-18 20:00 | NUR ---
RN notes Received sedated on Fentanyl gtt and Versed gtt.Currently intubated to mechanical vent on AC MODE.No acute distress noted.SR.Hemodynamically unstable on Claude Synephrine gtt infusing for BP support and will titrate accordingly.TPN infusing at 75 ml/hr.All iv's infusing via dorina picc line site intact. NGT to LIS with small drainage.FC to gravity.Abdominal dressing C/D/I.UBALDO with corry drainage.Continue to monitor.
[2021-03-18] MEDS: ACETAMINOPHEN 650 MG/SUPP.RECT RC PRN (21:29)
[2021-03-19] VITALS (89 sets, daily range): BP systolic 74–138; BP diastolic 34–71
--- NOTE | 2021-03-19 | NUR ---
Patient feverish Tylenol administered.Bed bath and continuous cooling measures done. Turned and repositioned.
[2021-03-19] MEDS: BLOOD SUGAR DIAGNOSTIC 1 EACH STRIP IN SCH ×4 (00:04→17:34)
[2021-03-19] MEDS: IV NS 0.9% 250 ML IV PRN (00:14)
[2021-03-19] MEDS ORDERED: TPN BAG #6 IV SCH (02:20)
[2021-03-19] MEDS: METOCLOPRAMIDE HCL 10 MG/2 ML VIAL IV SCH ×4 (05:33→23:37)
[2021-03-19 05:43] LABS: D-DIMER 24.35 mg/L(FEU (0.17-0.50)
[2021-03-19 05:51] LABS: CALCIUM, SERUM 7.5 mg/dL (8.5-10.1); CREATININE 4.2 mg/dL (0.6-1.3); MAGNESIUM 1.9 mg/dL (1.8-2.4); PHOSPHORUS 5.9 mg/dL (2.5-4.9); POTASSIUM 4.4 mmol/L (3.5-5.1)
--- NOTE | 2021-03-19 06:00 | NUR ---
Patient resting no acute distress noted.SALES SUPPORT ENGINEER Versed and Fentanyl gtt infusing well.Claude Synephrine infusing and titrated accordingly.SR and latest temp 99.3.Wound care done.Incision healthy.UBALDO small output.Turned and repositioned.FSBS WNL continue TPN as ordered.FC with minimal output.
--- NOTE | 2021-03-19 07:15 | NUR ---
ON SITE MANAGER NOTES RECEIVED PATIENT SEDATED, RESPONSIVE TO DEEP PAIN STIMULI , TOLERATING CURRENT VENT SETTINGS WITH SPO2 OF 98% , ETT 7.01/[address] . SR 86 ON BEDSIDE MONITOR . UBALDO DRAINING VIA NEGATIVE PRESSURE WITH SEROSANGUINEOUS OUTPUT . FC DRAINING VIA GRAVITY , LEFT NGT DRAINING VIA LOW INTERMITTENT SUCTION , LV PICC LINE WITH NEOSYNEPRINE @ 0.5MNCG/KG/MIN , TPN@ 75ML/HR , VERSED @3MG/HR , FENTANYL @ 135MCG/KG/MIN INFUSING WELL . ALL NEEDS ATTENDED ,WILL CONTINUE TO MONITOR .
[2021-03-19 07:39] LABS: ABG BASE EXCESS -2.3 mmol/L; ABG OXYGEN SATURATION 96.7 % (92.0-98.5); ABG PCO2 33.6 mmHg (35.0-45.0); ABG PH 7.428 (7.350-7.450); ABG PO2 87.7 mmHg (75.0-100.0); COHb 0.8 % (0.5-1.5); MetHb 0.4 % (0.0-1.5); O2Hb 95.5 % (94.0-97.0); PEEP,BG 5 cm H2O; SITE, ABG Right Radial; VT, ABG 500 mL
--- NOTE | 2021-03-19 07:50 | NUR ---
ICE GUARD INSPECTOR NOTES SEEN AND EVALUATED BY DR SHELLEY , NOTIFIED REGARDING CT HEAD RESULT , TEMP OF 100F , ON GUCCI @ 0.2MCG/KG/MIN , WILL TITRATE SEDATIONS FOR SEDATION MD TAURUS AWARE
--- NOTE | 2021-03-19 08:00 | NUR ---
IV THERAPY NURSE NOTES SEEN AND EVALUATED BY DR KILGORE , DISCUSSED LABS , TEMP OF 100F , ON NEOSYNEPRINE @ 0.2MCG/KG/MIN , NOTIFIED CT HEAD AND ABDOMEN RESULT , WILL TITRATE DOWN SEDATION FOR SEDATION VACATION . AWARE .
[2021-03-19] MEDS: PANTOPRAZOLE 40 MG VIAL IV SCH ×2 (08:07→20:31)
--- NOTE | 2021-03-19 08:16 | NUR ---
TERRAZZO LAYER HELPER NOTES SEEN AND EVALUATED BY DR DELGADO , DISCUSSED LABS , ON NEOSYNEPRINE @ 0.2MCG/KG/MIN , LOW GRADE TEMP OF 100.1F , WILL TITRATE SEDATION TO CHECK NEURO STATUS , NOTIFIED CT ABDOMEN / PELVIS RESULT , NGT TO LOW INTERMITTENT SUCTION NOTED WITH LOW THICK CLEAR OUTPUT , PER MD START NGT FEEDING , DO DIETARY CONSULT , ORDER CARRIED OUT .
[2021-03-19] MEDS: MICAFUNGIN SODIUM 100 MG in IV NS 0.9% 100 ML IV SCH (10:58)
[2021-03-19 11:12] LABS: BILIRUBIN,DIRECT 1.9 mg/dL (0.0-0.2); BILIRUBIN,TOTAL 2.4 mg/dL (0.2-1.0); TOTAL PROTEIN, SERUM 4.9 g/dL (6.4-8.2)
[2021-03-19] MEDS: ACETAMINOPHEN 650 MG/SUPP.RECT RC PRN (11:27)
[2021-03-19 11:45] LABS: ALBUMIN 1.1 g/dL (3.4-5.0)
--- NOTE | 2021-03-19 11:51 | NUR ---
agricultural technician notes temp of 101.1 f , tylenol 650mg supp given , sputum and urine culture collected labeled and sent to lab , versed and fentanyl off for sedation vacation , no apparent distress at this time , tolerating current vent settings with spo2 of 96% will continue to monitor .
[2021-03-19] MEDS: MEROPENEM 500 MG in IV NS 0.9% 50 ML IV SCH ×2 (12:17→22:25)
--- NOTE | 2021-03-19 12:45 | NUR ---
icu registered nurse notes pt noted with distress , rr of 30-38 cpm , spo2 of 90% via mechanical vent settings as ordered , prn dilaudid given ivp and restarted fentanyl @ 135mcg/kg/min , will titrate accordingly , unable to assess neuro status , pt responsive to deep pain stimuli , unable to follow commands . will continue to monitor .
[2021-03-19] MEDS: HYDROMORPHONE 1 MG/1 ML DISP.SYRIN IV PRN (12:47)
--- NOTE | 2021-03-19 13:21 | NUR ---
arboriculture instructor notes pt stable prior to hd . bp of 92/43 hr 98 , rr 30 cpm , temp of 100.2 , neosyneprine restarted , will titrate prn . will continue to monitor .
--- NOTE | 2021-03-19 15:33 | NUR ---
sericulturist notes called dietary to follow up consult regarding ngt feeding , awaiting for call back
[2021-03-19] MEDS ORDERED: TPN BAG #7 IV SCH (15:40)
[2021-03-19] MEDS: MIDAZOLAM HCL 100 MG in IV NS 0.9% 80 ML IV PRN (15:58)
[2021-03-19] MEDS: VANCOMYCIN 500 MG in IV D5W 100 ML IV PRN (15:58)
--- NOTE | 2021-03-19 16:23 | NUR ---
cvicu nurse notes pt stable s/p hd , 1l out , no change in condition noted , will titrate darby per protocol
[2021-03-19] MEDS: PHENYLEPHRINE 100 MG in IV NS 0.9% 240 ML IV PRN (18:06)
[2021-03-19] MEDS: FENTANYL CITRAT IV 2,500 MCG in IV NS 0.9% 200 ML IV PRN (18:48)
--- NOTE | 2021-03-19 19:39 | NUR ---
RCVD PT ORALLY INTUBATED W/ 7.5 ETT SECURED @ 22 CM LIP [facility] WITH THE SETTINGS OF AC 28,500, 40% PEEP 5. PT IS SEDATED , SUCTIONED SMALL AMOUNT OF [place] THICK SECRETIONS. CUFF INFLATED , EQUAL CHEST RISE NOTED. VENT PLUGGED INTO RED OUTLET, VENT ALARMS ON AND AUDIBLE. WILL CONTINUE TO MONITOR PT T/O SHIFT.
--- NOTE | 2021-03-19 19:51 | NUR ---
horticulturalist. initial assessment. received the pt rest on the bed. orally intubated. sedated with versed and fentanyl. ett 7.5, ac 28, lip 22cms, tv 500,fio2 40%, peep 5. sat 98%. secured entrance monitor showing nsr. iv rt upper arm picc line, rt ij hd cath, fc patent. ngt intact. nepro 10 ml/h. goal is 20. tpn 75ml/h,darby 0.4mcg/kg/min, versed 2mcg/kg/min, fentanyl 1mcg/kg/min, hob elevated, balaji lower and upper extremity edema 4+. pt is unstable, temperature is 100.6. will continue to monitor vitals.
[2021-03-19] MEDS: ACETAMINOPHEN 325 MG TABLET PO PRN (20:31)
[2021-03-19] MEDS: NEPRO 1,000 ML BOTTLE GT PRN (20:32)
--- NOTE | 2021-03-19 20:45 | NUR ---
vocational horticulture instructor. ngt residual is 60ml.
--- NOTE | 2021-03-19 20:55 | NUR ---
agriculture specialist. pt ngt residual is 60ml. notified Guillermo GARAY. ORDER IS CONTINUE FEEDING. WILL MONITOR
[2021-03-19] MEDS ORDERED: MEROPENEM 1 G in IV NS 0.9% 100 ML IV SCH (21:00)
[2021-03-20] VITALS (83 sets, daily range): BP systolic 70–135; BP diastolic 38–79
--- NOTE | 2021-03-20 01:07 | NUR ---
agricultural agent. ngt residual at this time 200. ml. will continue to monitor
--- NOTE | 2021-03-20 02:24 | NUR ---
curriculum advisory teacher. 0200. residual is 60. ngt feeding re -started. will monitor
--- NOTE | 2021-03-20 04:30 | NUR ---
agricultural scientist. 0300 ngt feeding resumed. will monitor residual.
--- NOTE | 2021-03-20 04:31 | NUR ---
agriculture worker. am acre given. remaining same vent settings on. ngt feeding at this time 10 ml/h. temperature 100.8. hob elevated. fc patent. urine draining. turn and reposition q2h. will continue to monitor vitals.
[2021-03-20] MEDS: ACETAMINOPHEN 325 MG TABLET PO PRN ×2 (04:51→16:17)
[2021-03-20 04:58] LABS: BASOPHILS % (AUTO) 0.1 % (0.0-2.0); EOSINOPHILS % (AUTO) 0.5 % (0.0-6.0); HEMATOCRIT 22 % (39-51); HEMOGLOBIN 7.2 g/dL (13.5-17.5); LYMPHOCYTES # (AUTO) 0.7 K/uL (0.8-4.8); LYMPHOCYTES % (AUTO) 3.2 % (20.0-44.0); MEAN CORPUSCULAR HGB CONC 34 g/dl (31.0-36.0); MEAN CORPUSCULAR VOLUME 89 fL (80-96); MONOCYTES % (AUTO) 4.4 % (2.0-12.0); NEUTROPHILS # (AUTO) 19.8 K/uL (1.8-8.9); NEUTROPHILS % (AUTO) 91.8 % (43.0-81.0); PLATELET COUNT (AUTO) 93 K/uL (150-450); RED BLOOD CELL COUNT(AUTO) 2.42 MIL/uL (4.5-6.0); WHITE BLOOD COUNT (AUTO) 21.6 K/uL (4.3-11.0)
[2021-03-20 05:14] LABS: CALCIUM, SERUM 7.5 mg/dL (8.5-10.1); CREATININE 4.2 mg/dL (0.6-1.3); MAGNESIUM 1.8 mg/dL (1.8-2.4); PHOSPHORUS 5.3 mg/dL (2.5-4.9); POTASSIUM 3.9 mmol/L (3.5-5.1)
[2021-03-20] MEDS: METOCLOPRAMIDE HCL 10 MG/2 ML VIAL IV SCH ×4 (05:26→23:29)
[2021-03-20] MEDS: BLOOD SUGAR DIAGNOSTIC 1 EACH STRIP IN SCH ×5 (05:27→23:29)
--- NOTE | 2021-03-20 07:00 | NUR ---
SHAREMILKER NOTES RECEIVED PATIENT SEDATED, RESPONSIVE TO DEEP PAIN STIMULI , TOLERATING CURRENT VENT SETTINGS WITH SPO2 OF 96% , ETT 7.01/[address] . SR 90 ON BEDSIDE MONITOR . UBALDO DRAINING VIA NEGATIVE PRESSURE WITH SEROSANGUINEOUS OUTPUT . FC DRAINING VIA GRAVITY , NGT FEEDING AT 10CC/HR RUNNING , LV PICC LINE WITH NEOSYNEPRINE @ 0.2 MCG/KG/MIN , VERSED @2 MG/HR , FENTANYL @ 135MCG/KG/MIN INFUSING WELL . ALL NEEDS ATTENDED , SR UP x3, BED LOCKED AND IN LOWEST POSITION, WILL CONTINUE TO MONITOR .
[2021-03-20 07:54] LABS: BAND % (MANUAL) 4 % (0.0-5.0); LYMPHOCYTES % (MANUAL) 3 % (16-48); METAMYELOCYTES % 3 % (0-0); MONOCYTES % (MANUAL) 1 % (0-11.0); NEUTROPHILS % (MANUAL) 89 (42-76)
[2021-03-20] MEDS ORDERED: TPN BAG #8 IV SCH (08:00)
[2021-03-20] MEDS: PANTOPRAZOLE 40 MG VIAL IV SCH ×2 (08:39→22:00)
[2021-03-20 08:49] LABS: ABG BASE EXCESS -1.2 mmol/L; ABG OXYGEN SATURATION 96.1 % (92.0-98.5); ABG PCO2 35.6 mmHg (35.0-45.0); ABG PH 7.428 (7.350-7.450); ABG PO2 88.9 mmHg (75.0-100.0); AaDO2 155.4 mmHg; COHb 1.3 % (0.5-1.5); MetHb 0.1 % (0.0-1.5); O2Hb 94.8 % (94.0-97.0); PEEP,BG 5 cm H2O; SITE, ABG Right Radial; VT, ABG 500 mL
--- NOTE | 2021-03-20 10:00 | NUR ---
RN NOTES DR DELGADO NOTIFIED REGARDING HIGH TF RESIDUAL , TPN RESTARTED PER DR. DELGADO ORDER.
[2021-03-20] MEDS: MEROPENEM 500 MG in IV NS 0.9% 50 ML IV SCH ×2 (10:44→23:29)
[2021-03-20] MEDS ORDERED: FENTANYL CITRAT IV 2,500 MCG in IV NS 0.9% 200 ML IV PRN (11:00)
[2021-03-20] MEDS: MICAFUNGIN SODIUM 100 MG in IV NS 0.9% 100 ML IV SCH (11:23)
--- NOTE | 2021-03-20 12:00 | NUR ---
RN NOTES 130 CC TF RESIDUAL NOTED, TF HELD AT THIS TIME. CONTINUE TO MONITOR .
[2021-03-20] MEDS: FENTANYL CITRAT IV 2,500 MCG in IV NS 0.9% 200 ML IV PRN (14:16)
[2021-03-20] MEDS: MIDAZOLAM HCL 100 MG in IV NS 0.9% 80 ML IV PRN (14:17)
--- NOTE | 2021-03-20 16:00 | NUR ---
RN NOTES GUCCI AT .2 MCG/KG/MIN RUNNING, BP STABLE , CONTINUE TO MONITOR .
[2021-03-20] MEDS: PHENYLEPHRINE 100 MG in IV NS 0.9% 240 ML IV PRN (16:14)
--- NOTE | 2021-03-20 18:18 | NUR ---
RN NOTES T=100.6 AT THIS TIME, COOLING MEASURES INPLACED , PT REMANINS INTUBATED AND SEDATED, TOLERAING CURRENT VENT SETTING WELL, ON FENTANYL AT 1 MCG/KG/MIN, VERSED AT 1 MG/HR, TPN AT 75CC/HR , GUCCI AT .1 MCG/KG/MIN RUNNING , TF AT 10 CC /HR DUE TO HIGH RESIDUAL , UBALDO DRAIN INTACT, ISRAEL DRAINING TO GRAVITY,SR UP x3, CALL LIGHT WITHIN EASY REACH, BED LOCKED AND IN LOWEST POSITION, WILL ENDORSE TO JEWELSMITH NURSE FOR CONTINUITY OF CARE .
[2021-03-20] MEDS ORDERED: TPN BAG #9 IV SCH (22:00)
--- NOTE | 2021-03-20 22:00 | NUR ---
MANAGEMENT ACCOUNTANT RCD PTWITH TUBE FEEDING AT 10 ML/HR AT 1929 RESIDUAL WAS 170 ML TUBE FEEDING STOPPED AT THIS TIME. AT 2129 RESIDUAL WAS RECHECKED AND FOUND TO BE 90 ML.NOTIFIED REWORKER KNIGHT WITH ORDERS TO STOP TUBE FEEDING AND NOTIFY SURGEON IN AM. PT REMAINS ON TPN.
[2021-03-21] VITALS (53 sets, daily range): BP systolic 96–149; BP diastolic 49–85
[2021-03-21] MEDS: VANCOMYCIN 500 MG in IV D5W 100 ML IV PRN (01:45)
[2021-03-21] MEDS: ACETAMINOPHEN 650 MG/SUPP.RECT RC PRN ×3 (02:31→22:12)
[2021-03-21 04:29] LABS: BASOPHILS # (AUTO) 0.1 K/uL (0.0-0.2); BASOPHILS % (AUTO) 0.6 % (0.0-2.0); EOSINOPHILS % (AUTO) 0.7 % (0.0-6.0); HEMATOCRIT 21 % (39-51); HEMOGLOBIN 7.1 g/dL (13.5-17.5); LYMPHOCYTES % (AUTO) 4.8 % (20.0-44.0); MEAN CORPUSCULAR HGB CONC 33 g/dl (31.0-36.0); MEAN CORPUSCULAR VOLUME 89 fL (80-96); MONOCYTES # (AUTO) 0.9 K/uL (0.1-1.30); NEUTROPHILS # (AUTO) 19.2 K/uL (1.8-8.9); NEUTROPHILS % (AUTO) 89.9 % (43.0-81.0); PLATELET COUNT (AUTO) 57 K/uL (150-450); WHITE BLOOD COUNT (AUTO) 21.3 K/uL (4.3-11.0)
[2021-03-21 04:35] LABS: CALCIUM, SERUM 7.6 mg/dL (8.5-10.1); CREATININE 5.2 mg/dL (0.6-1.3); PHOSPHORUS 7.4 mg/dL (2.5-4.9); POTASSIUM 4.6 mmol/L (3.5-5.1)
[2021-03-21 04:43] LABS: BILIRUBIN,DIRECT 3.5 mg/dL (0.0-0.2); TOTAL PROTEIN, SERUM 5.5 g/dL (6.4-8.2)
[2021-03-21 05:28] LABS: ALBUMIN 0.9 g/dL (3.4-5.0)
[2021-03-21] MEDS: METOCLOPRAMIDE HCL 10 MG/2 ML VIAL IV SCH ×4 (05:34→22:51)
[2021-03-21] MEDS: BLOOD SUGAR DIAGNOSTIC 1 EACH STRIP IN SCH ×4 (05:34→23:53)
[2021-03-21 05:49] LABS: BAND % (MANUAL) 2 % (0.0-5.0); LYMPHOCYTES % (MANUAL) 8 % (16-48); MONOCYTES % (MANUAL) 3 % (0-11.0); NEUTROPHILS % (MANUAL) 87 (42-76)
--- NOTE | 2021-03-21 07:30 | NUR ---
ELECTRICIAN CRANE MAINTENANCE OPENING NOTE ETT/VENT PT SEDATED, SEMIFOWLER'S IN BED ON VENT SETTINGS PER MD ORDER, TOLERATING WELL, SPO2 OF 100%, NO S/S OF RESP DISTRESS OR SOB, BREATHING EVEN AND UNLABORED, PT RESPONSIVE TO PAINFUL STIMULI. PT NSR ON BEDSIDE MONITOR, HR 80s. PT RT IJ HD CATH, INTACT. PT LT NARE NGT AUSCULTATED FOR POSITIVE PLACEMENT, RESIDUALS OF 300cc, WILL INFORM DR KILGORE, NGT CLAMPED. PT UBALDO DRAIN DRAINING VIA NEGATIVE PRESSURE SEROSANGUINEOUS OUTPUT. ISRAEL CATH DRAINING CLEAR AURA URINE TO GRAVITY. LV PICC LINE INFUSING VERSED @ 1MG/HR, FENTANYL @ 135 MCG/KG/MIN, AND TPN @ 75 ML/HR. ALL PIGTAILS FLUSHED AND INTACT/PATENT. ALL PT SAFETY PRECAUTIONS IN PLACE, WILL CONT TO MONITOR
[2021-03-21] MEDS: PANTOPRAZOLE 40 MG VIAL IV SCH ×2 (09:28→21:44)
[2021-03-21] MEDS: FENTANYL CITRAT IV 2,500 MCG in IV NS 0.9% 200 ML IV PRN ×2 (09:38→21:48)
[2021-03-21] MEDS ORDERED: TPN BAG #10 IV SCH (10:00)
--- NOTE | 2021-03-21 10:15 | NUR ---
RN NOTE PT TAKEN OFF VERSED AT [address] MENDOZA ORDER, AT 1010 PT BEGAN SHOWING SYMPTOMS OF DISTRESS, BREATHING OVER VENT SETTINGS, RT BEDSIDE. VERSED RESTARTED AT 1015. PT WAS ABLE TO OPEN EYES, BUT UNABLE TO TRACK, UNABLE TO FOLLOW ANY COMMANDS. WILL CONT TO MONITOR
--- NOTE | 2021-03-21 11:30 | NUR ---
RN NOTE DR KILGORE AWAREOF 300cc RESIDUALS, OK WITH ALL 300cc PLACED BACK INTOPT'S NGT/STOMACH
[2021-03-21] MEDS: MEROPENEM 500 MG in IV NS 0.9% 50 ML IV SCH ×2 (11:46→22:51)
[2021-03-21] MEDS: MICAFUNGIN SODIUM 100 MG in IV NS 0.9% 100 ML IV SCH (11:47)
--- NOTE | 2021-03-21 15:45 | NUR ---
RN NOTE TYLENOL 650MG SUPPOSITORY GIVEN FOR TEMP OF 99.9 F
[2021-03-21] MEDS: MIDAZOLAM HCL 100 MG in IV NS 0.9% 80 ML IV PRN (15:51)
--- NOTE | 2021-03-21 18:45 | NUR ---
EXECUTOR OF ESTATE CLOSING NOTE PT TOELRATED HD WELL, ALTHOUGH VERSED WAS INCREASED FROM 1.0 TO 2.5 MG/HR D/T PT BECOMING AGITATED AND TACHYPNIC. 1 L REMOVED. PT STILL ON FENTANYL 135 MCG/KG/HR AND TPN @ 75 ML/HR, BOTH UNCHANGED. PT NGT WAS CLAMPED UP UNTIL 1844, NOW ON LOW CONT SUCTION, MEDICAL PARASITOLOGIST RAKESH AGREES WITH LOW CONT SUCTION. BROWN COLOREDMUCOID PLUGS WERE SUCTIONED FROM PT ETT. NO OTHER CHANGES TO PT DURING SHIFT. PT TEMP NOW 99.2F. ALL PT SAFETY PRECAUTIONSINPLACE.ANDREW ENDORESED TO CIVIL SERVICE WORKER RN
[2021-03-21] MEDS ORDERED: TPN BAG #11 IV SCH (23:00)
[2021-03-22] VITALS (51 sets, daily range): BP systolic 86–147; BP diastolic 38–86
[2021-03-22 04:28] LABS: BASOPHILS % (AUTO) 0.1 % (0.0-2.0); EOSINOPHILS % (AUTO) 0.2 % (0.0-6.0); LYMPHOCYTES # (AUTO) 1.6 K/uL (0.8-4.8); LYMPHOCYTES % (AUTO) 10.5 % (20.0-44.0); MEAN CORPUSCULAR HGB CONC 34 g/dl (31.0-36.0); MEAN CORPUSCULAR VOLUME 90 fL (80-96); MONOCYTES # (AUTO) 0.9 K/uL (0.1-1.30); MONOCYTES % (AUTO) 5.9 % (2.0-12.0); NEUTROPHILS # (AUTO) 12.6 K/uL (1.8-8.9); NEUTROPHILS % (AUTO) 83.3 % (43.0-81.0); PLATELET COUNT (AUTO) 210 K/uL (150-450); WHITE BLOOD COUNT (AUTO) 15.2 K/uL (4.3-11.0)
[2021-03-22 04:47] LABS: HEMATOCRIT 18 % (39-51)
[2021-03-22 04:48] LABS: HEMOGLOBIN 6.1 g/dL (13.5-17.5)
[2021-03-22 05:04] LABS: CALCIUM, SERUM 7.4 mg/dL (8.5-10.1); MAGNESIUM 1.7 mg/dL (1.8-2.4); PHOSPHORUS 5.3 mg/dL (2.5-4.9)
[2021-03-22 05:48] LABS: BAND % (MANUAL) 1 % (0.0-5.0); LYMPHOCYTES % (MANUAL) 4 % (16-48); NEUTROPHILS % (MANUAL) 83 (42-76)
[2021-03-22 05:49] LABS: BASOPHILS % (MANUAL) 0 % (0.0-2.0); EOSINOPHILS % (MANUAL) 1 % (0-4); MONOCYTES % (MANUAL) 11 % (0-11.0)
[2021-03-22] MEDS: BLOOD SUGAR DIAGNOSTIC 1 EACH STRIP IN SCH ×4 (05:57→23:55)
[2021-03-22] MEDS: METOCLOPRAMIDE HCL 10 MG/2 ML VIAL IV SCH ×4 (05:57→23:38)
--- NOTE | 2021-03-22 07:00 | NUR ---
MACHINE CEMENTER AND FOLDER NOTES RECEIVED PATIENT SEDATED, RESPONSIVE TO DEEP PAIN STIMULI , TOLERATING CURRENT VENT SETTINGS WITH SPO2 OF 99% , ETT 7.01/[address] HR IN100'S, ON BEDSIDE MONITOR . UBALDO DRAINING VIA NEGATIVE PRESSURE WITH SEROSANGUINEOUS OUTPUT . FC DRAINING VIA GRAVITY , NGT TO LIS , LV PICC LINE SITE CLEAN ,DRY AND INTACT, VERSED @5.5 MG/HR , FENTANYL @ 135MCG/KG/MIN, TPN AT 75CC/HR RUNNING, . ALL NEEDS ATTENDED , SR UP x3, BED LOCKED AND IN LOWEST POSITION, WILL CONTINUE TO MONITOR .
--- NOTE | 2021-03-22 07:55 | NUR ---
WOUND CARE FOLLOW UP: ATTEMPT TO DO RE-EVALUATION OF SACRAL DEEP TISSUE INJURY BUT PT HAS LOW BP AT THIS TIME PER NURSING STAFF. WILL SEE PT PT CONDITION PERMITS. ALL SKIN PROTECTION MEASURES IN PLACE AND DISCUSSED WITH NURSING STAFF.
[2021-03-22] MEDS ORDERED: Magnesium 1GM/D5W 100ML PREMIX 100 ML IV SCH (08:00)
[2021-03-22] MEDS: PANTOPRAZOLE 40 MG VIAL IV SCH ×2 (08:03→21:41)
[2021-03-22] MEDS: ACETAMINOPHEN 325 MG TABLET PO PRN (08:06)
[2021-03-22] MEDS: MEROPENEM 500 MG in IV NS 0.9% 50 ML IV SCH ×2 (11:00→23:32)
--- NOTE | 2021-03-22 11:28 | NUR ---
WOUND CARE FOLLOW UP: PT SEEN FOR RE-EVALUATION OF SACRAL DEEP TISSUE INJURY WHICH IS IN EVOLUTION WITH SOME MOISTURE ASSOCIATED OPEN SKIN TO GLUTEAL CREASE/PERIANAL AREA. RECOMMENDATIONS MADE FOR SKIN PROTECTION AND WOUND CARE. DISCUSSED WITH NURSING STAFF. SURGICAL CONSULT OBTAINED FROM DR LORD. PT NOTED TO HAVE MULTIPLE CO-MORBIDITIES INCLUDING GENERALIZED EDEMA, SEPSIS, MULTI-ORGAN FAILURE AND ANEMIA. PT REMAINS INTUBATED. DUE TO MULTIPLE CO-MORBIDITIES, FURTHER SKIN DAMAGE MAY BE UNAVOIDABLE. [facility] ETS AIR BED ORDERED PER STATE ATTORNEY. IN AGREEMENT WITH PLAN OF CARE.
[2021-03-22] MEDS: MICAFUNGIN SODIUM 100 MG in IV NS 0.9% 100 ML IV SCH (11:46)
--- NOTE | 2021-03-22 12:00 | NUR ---
RN NOTES ETT CARE DONE, CONTINUE TO MONITOR.
--- NOTE | 2021-03-22 12:00 | NUR ---
RN NOTES ONE UNIT OF PRBC INFUSED , TOLERATED WELL, CONTINUE TO MONITOR
[2021-03-22] MEDS ORDERED: TPN BAG #12 IV SCH (12:20)
[2021-03-22] MEDS: MIDAZOLAM HCL 100 MG in IV NS 0.9% 80 ML IV PRN (15:35)
[2021-03-22] MEDS ORDERED: Magnesium 1GM/D5W 100ML PREMIX PIGGYBACK IV ONE (16:00)
--- NOTE | 2021-03-22 16:00 | NUR ---
RN NOTES DR ANGELICA ARDON REGARDING MAG 1.7 , NEW ORDER RECEIVED, CONTINUE TO MONITOR.
--- NOTE | 2021-03-22 18:25 | NUR ---
RN NOTES PT REMANINS INTUBATED AND SEDATED, TOLERAING CURRENT VENT SETTING WELL, ON FENTANYL AT .5 MCG/KG/MIN, VERSED AT 1 MG/HR, TPN AT 75CC/HR , RUNNING VIA R UPPER ARM PICC LINE , SITE CLEAN, DRY AND INTACT, NGT TO LIS , UBALDO DRAIN INTACT, ISRAEL DRAINING TO GRAVITY,PT PLACED ON BARIATRIC BED, SR UP x3, CALL LIGHT WITHIN EASY REACH, BED LOCKED AND IN LOWEST POSITION, WILL ENDORSE TO NEWSPAPER CARRIER NURSE FOR CONTINUITY OF CARE .
--- NOTE | 2021-03-22 19:40 | NUR ---
RN NOTES RECEIVED PATIENT ORALLY INTUNBATED WITH ETT 7.5 AND 22 CM AT LIP LINE WITH VENT SETTING AC 28 TV 500 SIO2 40% AND PEEP 5, SEDATED WITH VERSED BUT FIGHTING ON HIS VENT SEDATION INCREASE PROTOCOL ORDER. ST ON MONITOR. WITH NGT TO LIS WITH GREENISH COLOR OUTPUT. IV SITE ON LV PPICC LINE RUNNING WITH TPN @ 75 ML/HR , VERSED @ 1 MG/HR AND FENTANYL @ 67 MCG/HR INTACT AND PATENT. NO LEAKING FROM IV SITE. PATIENT HAS ISRAEL CATH DRAINED VIA GRAVITY WITH AURA COLOR URINE. RIGHT CHEST JARVIS CATH WITH CLEAN AND DRY DRESSING. NOTED PATIENT AHS TEMPERATURE 100.5 COOLING MEASURES PROVIDED. KEPT PT CLEAN AND COMFORTABLE IN BED. TURN AND REPOSITION FOR SKIN MANAGEMENT. KEPT PT CLEAN AND DRY. WILL CONTINUE TO MONITOR.
[2021-03-22] MEDS: FENTANYL CITRAT IV 2,500 MCG in IV NS 0.9% 200 ML IV PRN (21:12)
[2021-03-23] VITALS (26 sets, daily range): BP systolic 93–154; BP diastolic 41–86
[2021-03-23] MEDS ORDERED: TPN BAG #13 IV SCH (01:40)
[2021-03-23 04:30] LABS: BASOPHILS # (AUTO) 0.1 K/uL (0.0-0.2); BASOPHILS % (AUTO) 0.6 % (0.0-2.0); EOSINOPHILS % (AUTO) 0.5 % (0.0-6.0); LYMPHOCYTES % (AUTO) 6.2 % (20.0-44.0); MEAN CORPUSCULAR HGB CONC 33 g/dl (31.0-36.0); MEAN CORPUSCULAR VOLUME 89 fL (80-96); MONOCYTES # (AUTO) 1.2 K/uL (0.1-1.30); MONOCYTES % (AUTO) 7.5 % (2.0-12.0); NEUTROPHILS # (AUTO) 13.5 K/uL (1.8-8.9); NEUTROPHILS % (AUTO) 85.2 % (43.0-81.0); RED BLOOD CELL COUNT(AUTO) 2.15 MIL/uL (4.5-6.0); WHITE BLOOD COUNT (AUTO) 15.9 K/uL (4.3-11.0)
[2021-03-23 04:41] LABS: HEMATOCRIT 19 % (39-51)
[2021-03-23 04:43] LABS: CALCIUM, SERUM 7.4 mg/dL (8.5-10.1); CREATININE 4.7 mg/dL (0.6-1.3); HEMOGLOBIN 6.4 g/dL (13.5-17.5); MAGNESIUM 1.9 mg/dL (1.8-2.4); PHOSPHORUS 5.8 mg/dL (2.5-4.9); POTASSIUM 4.3 mmol/L (3.5-5.1)
[2021-03-23] MEDS: IV NS 0.9% 250 ML IV PRN (05:05)
[2021-03-23 05:06] LABS: PLATELET COUNT (AUTO) 107 K/uL (150-450)
[2021-03-23 05:12] LABS: BAND % (MANUAL) 9 % (0.0-5.0); BASOPHILS % (MANUAL) 0 % (0.0-2.0); EOSINOPHILS % (MANUAL) 2 % (0-4); LYMPHOCYTES % (MANUAL) 5 % (16-48); MONOCYTES % (MANUAL) 9 % (0-11.0); NEUTROPHILS % (MANUAL) 75 (42-76)
[2021-03-23] MEDS: METOCLOPRAMIDE HCL 10 MG/2 ML VIAL IV SCH ×4 (05:41→23:09)
[2021-03-23] MEDS: BLOOD SUGAR DIAGNOSTIC 1 EACH STRIP IN SCH ×3 (06:27→17:00)
--- NOTE | 2021-03-23 07:28 | NUR ---
RN RECEIVING NOTES RECEIVED PATIENT SEDATED BUT OPENS EYES, NON INTERACTIVE. ORALLY INTUBATED WITH VENT SETTINGS AC 28 TV 500 FIO2 40% PEEP 5. ST ON BEDSIDE MONITOR. NGT TO LOW CONTINUOUS SUCTION. ABDO DRESSING WITH UBALDO DRAIN INTACT. ISRAEL DRAINING BY GRAVITY. LV PICC WITH TPN AT 75 ML/HR, FENTANYL AT 67MCG/HR AND VERSED AT 4MG/HR. RIGHT JARVIS CATHETER NOTED. SAFETY CHECKS IN PLACE. WILL CONTINUE TO MONITOR.
--- NOTE | 2021-03-23 07:30 | NUR ---
RN NOTES PATIENT HGB 6.4 HCT 19 INFORMED ZACKERY JOHNSON WITH NEW ORDER TO GIVE 1 UNIT PRBC DURING HD NOTED AND CARRIED OUT ORDER. PATIENT ETT AND VENT SETTING TOLERATED WELL. CONTINUE ON VERSED AND FENTANYL AND TPN TITRATED ORDERED. LOW GRADE FEVER STILL NOTED. COOLING MEASURES CONTINUE TO PROVIDE. KEPT PT CLEAN AND DRY. ENDORSED CONTINUITY OF CARE TO AM NURSE.
[2021-03-23] MEDS: PANTOPRAZOLE 40 MG VIAL IV SCH ×2 (08:18→21:42)
[2021-03-23] MEDS ORDERED: ACETAMINOPHEN 325 MG TABLET PO ONE (10:00)
[2021-03-23] MEDS ORDERED: diphenhydrAMINE HCL 50 MG/ML VIAL IV ONE (10:00)
[2021-03-23] MEDS: MEROPENEM 500 MG in IV NS 0.9% 50 ML IV SCH ×2 (10:01→23:08)
[2021-03-23] MEDS: MICAFUNGIN SODIUM 100 MG in IV NS 0.9% 100 ML IV SCH (10:37)
--- NOTE | 2021-03-23 12:08 | NUR ---
RN NOTE 1 UNIT OF PRBC WAS ADMINISTERED DURING HEMODIALYSIS WITH LEXY WESLEY. NO ADVERSE REACTIONS NOTED. PATIENT TOLERATED THE TRANSFUSION.
--- NOTE | 2021-03-23 14:09 | NUR ---
RN NOTE PATIENT TOLERATED HEMODIALYSIS AND 3L WAS REMOVED.
[2021-03-23] MEDS: NEPRO 1,000 ML BOTTLE GT PRN (14:29)
--- NOTE | 2021-03-23 14:45 | NUR ---
RN NOTE NG FEED RESUMED PER DR DELGADO AND WAS STARTED AT 10ML/HR.
[2021-03-23] MEDS: ACETAMINOPHEN 325 MG TABLET PO PRN ×2 (14:49→21:35)
[2021-03-23] MEDS ORDERED: VANCOMYCIN 1 GM in IV D5W 250ml IV ONE (15:00)
[2021-03-23] MEDS ORDERED: TPN BAG #14 IV SCH (15:00)
[2021-03-23] MEDS: MIDAZOLAM HCL 100 MG in IV NS 0.9% 80 ML IV PRN (16:39)
--- NOTE | 2021-03-23 18:13 | NUR ---
RN CLOSING NOTES PATIENT REMAINS SEDATED AND ORALLY INTUBATED WITH VENT SETTINGS AC 28 TV 500 FIO2 40% PEEP 5. SR ON BEDSIDE MONITOR. NGT TO NEPRO AT 10ML/HR. ABDO DRESSING WITH UBALDO DRAIN EMPTYING 20MLS THIS SHIFT. ISRAEL DRAINED 1600MLS BY GRAVITY. LV PICC WITH TPN AT 75 ML/HR, FENTANYL AT 67MCG/HR AND VERSED AT 4MG/HR. RIGHT IJ HD CATHETER NOTED. SAFETY CHECKS IN PLACE. WILL ENDORSE TO NIGHT RN FOR CONTINUITY OF CARE.
--- NOTE | 2021-03-23 19:25 | NUR ---
ICU/MEDICAL CODING SPECIALIST DR AVILA TO PLACE G/TUBE HOWEVER PT WAS GETTING FEEDING WHICH WAS ORDERED BY DR DELGADO. PT TO BE NPO TONIGHT TO PREPARE FOR G/TUBE PLACEMENT.
--- NOTE | 2021-03-23 19:30 | NUR ---
ICU/FISHER HOOP NET RECEIVED REPORT FROM DAY NURSE. SEE FLOWSHEET FOR ASSESSMENT. SEE IV SPREAD SHEET FOR TITRATION TO THESE WHICH ARE ADDRESSED ON THE IV SPREAD SHEET. PT IS CURRENTLY ORALLY INTUBATED TOLERATING CURRENT VENT SETTINGS WITH SATURATION AT 100%. PT WAS TURNED AND REPOSITIONED FOR COMFORT AND CARE. NO ACUTE DISTRESS SEEN AT THIS TIME WILL CONTINUE MONITOR THIS PT
--- NOTE | 2021-03-23 21:30 | NUR ---
ICU/TOP LIFT NAILER TYLENOL GIVEN FOR TEMP. 100.8, WILL CONTINUE TO MONITOR THIS PT. PT WAS TURNED AND REPOSITIONED FOR COMFORT AND CARE. NO ACUTE DISTRESS SEEN AT THIS TIME.
--- NOTE | 2021-03-23 22:50 | NUR ---
ICU/TIE MAKER PT WAS GIVEN ORAL CARE, ALONG WITH PM CARE AT THIS TIME. PT TOLERATED THIS WELL, PT REMAINS ON CURRENT VENT SETTINGS WITH SATURATION AT 100%. PT WAS TURNED AND REPOSITIONED FOR COMFORT AND CARE. WILL CONTINUE TO MONITOR THIS PT. NO ACUTE DISTRESS SEEN AT THIS TIME
[2021-03-23] MEDS: FENTANYL CITRAT IV 2,500 MCG in IV NS 0.9% 200 ML IV PRN (23:10)
[2021-03-24] VITALS (27 sets, daily range): BP systolic 81–139; BP diastolic 38–76
[2021-03-24] MEDS: BLOOD SUGAR DIAGNOSTIC 1 EACH STRIP IN SCH ×5 (00:10→23:52)
--- NOTE | 2021-03-24 03:30 | NUR ---
ICU/DEALER COMPLIANCE REPRESENTATIVE TYLENOL GIVEN FOR TEMP. 100.9, WILL CONTINUE TO MONITOR THIS PT. PT WAS TURNED AND REPOSITIONED FOR COMFORT AND CARE. NO ACUTE DISTRESS SEEN AT THIS TIME.
[2021-03-24 04:15] LABS: BASOPHILS % (AUTO) 0.2 % (0.0-2.0); EOSINOPHILS % (AUTO) 0.4 % (0.0-6.0); HEMATOCRIT 22 % (39-51); HEMOGLOBIN 7.3 g/dL (13.5-17.5); LYMPHOCYTES # (AUTO) 1.3 K/uL (0.8-4.8); LYMPHOCYTES % (AUTO) 8.7 % (20.0-44.0); MEAN CORPUSCULAR HGB CONC 33 g/dl (31.0-36.0); MEAN CORPUSCULAR VOLUME 91 fL (80-96); MONOCYTES # (AUTO) 1.3 K/uL (0.1-1.30); MONOCYTES % (AUTO) 9.2 % (2.0-12.0); NEUTROPHILS # (AUTO) 11.7 K/uL (1.8-8.9); NEUTROPHILS % (AUTO) 81.5 % (43.0-81.0); RED BLOOD CELL COUNT(AUTO) 2.44 MIL/uL (4.5-6.0); WHITE BLOOD COUNT (AUTO) 14.4 K/uL (4.3-11.0)
[2021-03-24] MEDS ORDERED: TPN BAG #15 IV SCH (04:20)
--- NOTE | 2021-03-24 04:30 | NUR ---
ICU/DISTRIBUTION SALES REPRESENTATIVE PT WAS GIVEN ORAL CARE, ALONG WITH AM CARE AT THIS TIME. PT TOLERATED THIS WELL, PT REMAINS ON CURRENT VENT SETTINGS WITH SATURATION AT 100%. PT WAS TURNED AND REPOSITIONED FOR COMFORT AND CARE. WILL CONTINUE TO MONITOR THIS PT. NO ACUTE DISTRESS SEEN AT THIS TIME
[2021-03-24 04:34] LABS: BILIRUBIN,TOTAL 4.3 mg/dL (0.2-1.0); CALCIUM, SERUM 7.8 mg/dL (8.5-10.1); CREATININE 3.7 mg/dL (0.6-1.3); MAGNESIUM 1.7 mg/dL (1.8-2.4); PHOSPHORUS 4.7 mg/dL (2.5-4.9); POTASSIUM 3.8 mmol/L (3.5-5.1); TOTAL PROTEIN, SERUM 6.1 g/dL (6.4-8.2)
[2021-03-24] MEDS: METOCLOPRAMIDE HCL 10 MG/2 ML VIAL IV SCH ×4 (04:40→23:10)
[2021-03-24] MEDS: IV NS 0.9% 250 ML IV PRN (04:40)
[2021-03-24] MEDS: ACETAMINOPHEN 325 MG TABLET PO PRN ×4 (04:44→23:10)
[2021-03-24] MEDS ORDERED: VANCOMYCIN 500 MG in IV D5W 100 ML IV PRN (05:00)
--- NOTE | 2021-03-24 05:30 | NUR ---
ICU/RISK INTERN AM LABS WERE DRAWN ALONG WITH CHEST XRAY, AWAIT FOR ANY ABNORMAL LABS
[2021-03-24 05:32] LABS: BAND % (MANUAL) 1 % (0.0-5.0); LYMPHOCYTES % (MANUAL) 13 % (16-48); MONOCYTES % (MANUAL) 10 % (0-11.0); NEUTROPHILS % (MANUAL) 76 (42-76)
[2021-03-24 06:02] LABS: PLATELET COUNT (AUTO) 256 K/uL (150-450)
--- NOTE | 2021-03-24 07:26 | NUR ---
RN OPENING NOTES RECEIVED PATIENT SEDATED BUT OPENS EYES, NON INTERACTIVE. ORALLY INTUBATED WITH VENT SETTINGS AC 28 TV 500 FIO2 40% PEEP 5. SR ON BEDSIDE MONITOR. NG TUBE IN PLACE WITH FEED ON HOLD. ABDO DRESSING WITH UBALDO DRAIN INTACT. ISRAEL DRAINING BY GRAVITY. LV PICC WITH TPN AT 75 ML/HR, FENTANYL AT 67MCG/HR AND VERSED AT 4MG/HR. RIGHT IJ HD CATHETER NOTED. SAFETY CHECKS IN PLACE. WILL CONTINUE TO MONITOR.
[2021-03-24] MEDS: PANTOPRAZOLE 40 MG VIAL IV SCH ×2 (08:33→21:05)
[2021-03-24] MEDS ORDERED: Magnesium 1GM/D5W 100ML PREMIX 100 ML IV SCH (09:00)
[2021-03-24] MEDS: MEROPENEM 500 MG in IV NS 0.9% 50 ML IV SCH ×2 (10:14→23:10)
[2021-03-24] MEDS: MICAFUNGIN SODIUM 100 MG in IV NS 0.9% 100 ML IV SCH (11:05)
--- NOTE | 2021-03-24 14:30 | NUR ---
RN NOTE DR THOMAS CALLED TO INFORM OF TRACH PLACEMENT TOMORROW AT 0730.
[2021-03-24] MEDS: MIDAZOLAM HCL 100 MG in IV NS 0.9% 80 ML IV PRN (14:45)
--- NOTE | 2021-03-24 15:00 | NUR ---
RN NOTE DR FAGAN MADE ROUNDS AND SAID THAT EGD FOR THIS PATIENT WILL BE TOMORROW OR ANOTHER DAY DEPENDING ON THEIR LIST.
[2021-03-24] MEDS ORDERED: TPN BAG #16 IV SCH (17:40)
--- NOTE | 2021-03-24 18:20 | NUR ---
RN CLOSING NOTES PATIENT REMAINS SEDATED AND ORALLY INTUBATED WITH VENT SETTINGS AC 28 TV 500 FIO2 40% PEEP 5. SR ON BEDSIDE MONITOR. NG TUBE IN PLACE WITH FEED ON HOLD. ABDO DRESSING WITH UBALDO DRAIN EMPTYING 5MLS. ISRAEL DRAINED 1150MLS BY GRAVITY. LV PICC WITH TPN AT 75 ML/HR, FENTANYL AT 67MCG/HR AND VERSED AT 3MG/HR. RIGHT IJ HD CATHETER NOTED. SAFETY CHECKS IN PLACE. WILL ENDORSE TO NIGHT RN FOR CONTINUITY OF CARE.
--- NOTE | 2021-03-24 19:26 | NUR ---
agricultural commodities grader. initial assessment. received the pt rest on the bed. orally intubated. sedated with fentanyl and versed. ETT 7.5. LIP 22, AC 28,TV 500,FIO2 40%,PEEP 5. SAT 98%. SENIOR MARKETING MANAGER SHOWING NSR. NGT INTACT. CLAMPED. IV RT UPPER ARM PICC LINE, RT IJ HD CATH, HOB ELEVATED. FC PATENT. URINE DRAINING. TPN 75 ML/H. HOB ELEVATED. WILL CONTINUE TO MONITOR VITALS.
[2021-03-25] VITALS (68 sets, daily range): BP systolic 54–155; BP diastolic 22–109
--- NOTE | 2021-03-25 01:05 | NUR ---
icu tech.pt is npo. pt is schedule for trach.AM
[2021-03-25] MEDS ORDERED: TPN BAG #26 IV SCH (03:30)
--- NOTE | 2021-03-25 04:00 | NUR ---
curriculum development specialist. temperature is 100.3. tylenol supp given per ordered.
[2021-03-25 04:40] LABS: BILIRUBIN,TOTAL 2.8 mg/dL (0.2-1.0); CALCIUM, SERUM 7.7 mg/dL (8.5-10.1); MAGNESIUM 1.7 mg/dL (1.8-2.4); PHOSPHORUS 5.9 mg/dL (2.5-4.9); POTASSIUM 3.9 mmol/L (3.5-5.1); TOTAL PROTEIN, SERUM 5.8 g/dL (6.4-8.2)
[2021-03-25 04:59] LABS: BASOPHILS % (AUTO) 0.2 % (0.0-2.0); EOSINOPHILS % (AUTO) 0.1 % (0.0-6.0); LYMPHOCYTES # (AUTO) 0.8 K/uL (0.8-4.8); LYMPHOCYTES % (AUTO) 6.4 % (20.0-44.0); MEAN CORPUSCULAR HGB CONC 33 g/dl (31.0-36.0); MEAN CORPUSCULAR VOLUME 92 fL (80-96); MONOCYTES # (AUTO) 1.3 K/uL (0.1-1.30); MONOCYTES % (AUTO) 10.1 % (2.0-12.0); NEUTROPHILS % (AUTO) 83.2 % (43.0-81.0); PLATELET COUNT (AUTO) 273 K/uL (150-450); WHITE BLOOD COUNT (AUTO) 13.2 K/uL (4.3-11.0)
--- NOTE | 2021-03-25 05:00 | NUR ---
agricultural service technician. am care given. linen changed. remaining samr vent settings on, sat is 100%. playground monitor showing nsr. iv rt upper arm picc line tpn 75 ml/h, versed 3mg/h, fentanyl 67mcg/h. f c patent. urine drai florencia. ngt intact. pt is npo. hob elevated. turn and reposition q2h. will continue to monitor vitals.
[2021-03-25 05:09] LABS: HEMATOCRIT 19 % (39-51); HEMOGLOBIN 6.4 g/dL (13.5-17.5)
[2021-03-25 05:10] LABS: ALBUMIN 0.9 g/dL (3.4-5.0)
[2021-03-25] MEDS: METOCLOPRAMIDE HCL 10 MG/2 ML VIAL IV SCH ×4 (05:48→23:29)
[2021-03-25] MEDS: ACETAMINOPHEN 650 MG/SUPP.RECT RC PRN ×2 (05:51→09:52)
[2021-03-25] MEDS: BLOOD SUGAR DIAGNOSTIC 1 EACH STRIP IN SCH ×4 (06:20→23:28)
--- NOTE | 2021-03-25 06:39 | NUR ---
sustainable agriculture faculty. H&H 6.4. 1 unit prbc ordered.
[2021-03-25] MEDS ORDERED: LIDOCAINE 0.5%-EPI 1:200,000 50 ML VIAL ONE (06:55)
[2021-03-25] MEDS ORDERED: ANESTHESIA TRAY IN PYXIS 1 EA TRAY MC ONE (06:55)
--- NOTE | 2021-03-25 06:56 | NUR ---
RIGGING AND CONTROLS AIRCRAFT MECHANIC.PT IS DNR. TODAY GOING TO TRACH. CODE STATUS CHANGED TO FULL CODE.( FOR 24 HOURS. THEN PLEASE CHANGE CODE STATUS}
[2021-03-25] MEDS ORDERED: LIDOCAINE MPF 1%-EPI 1:200,000 30 ML VIAL IJ ONE (06:58)
[2021-03-25] MEDS ORDERED: LIDOCAINE HCL/MPF 1% 30 ML VIAL IJ ONE (06:58)
[2021-03-25] MEDS ORDERED: TPN BAG #17 IV SCH (07:00)
[2021-03-25] MEDS ORDERED: FAMOTIDINE/PF INJ 20 MG/2 ML VIAL IV ONE (07:06)
[2021-03-25] MEDS ORDERED: FENTANYL PF 100MCG/2ML AMPUL ONE (07:07)
--- NOTE | 2021-03-25 07:15 | NUR ---
INSPECTOR CASING NOTES RECEIVED PATIENT SEDATED, RESPONSIVE TO DEEP PAIN STIMULI , TOLERATING CURRENT VENT SETTINGS WITH SPO2 OF 99% , ETT 7.01/[address] . SR 95 ON BEDSIDE MONITOR . UBALDO DRAINING VIA NEGATIVE PRESSURE WITH NO OUTPUT NOTED . FC DRAINING VIA GRAVITY , LEFT NGT PATENT AND INTACT CLAMPED , LV PICC LINE WITH TPN@ 75ML/HR , VERSED @3MG/HR , FENTANYL @ 67MCG/KG/HR INFUSING WELL NS @ TKO , RIGHT IJ HD CATH PATENT AND INTACT . ALL NEEDS ATTENDED ,WILL CONTINUE TO MONITOR .
--- NOTE | 2021-03-25 08:20 | NUR ---
SENIOR EDUCATION SPECIALIST NOTES PT STABLE S/P TRACH PLACEMENT , TRACH OF SHILEY DISTAL XLT NOTED WITH MINIMAL BLEEDING AROUND THE SITE , TOLERATING CURRENT VENT SETTINGS WITH SPO2 OF 97% , NO CHANGE OF CONDITION NOTED , WILL CONTINUE TO MONITOR .
[2021-03-25] MEDS: HYDROMORPHONE 1 MG/1 ML DISP.SYRIN IV PRN (08:26)
[2021-03-25] MEDS: PANTOPRAZOLE 40 MG VIAL IV SCH ×2 (08:59→20:10)
[2021-03-25] MEDS ORDERED: Magnesium 1GM/D5W 100ML PREMIX 100 ML IV SCH ×2 (09:00→20:00)
[2021-03-25] MEDS ORDERED: MEPERIDINE25 MG SYR 25 MG/ML VIAL IV ONE (09:00)
[2021-03-25] MEDS: ACETAMINOPHEN 325 MG TABLET PO PRN (09:55)
--- NOTE | 2021-03-25 10:19 | NUR ---
REPAIR MECHANIC NOTES NOTIFIED SPLUNK ARCHITECT LORENZO THAT PT NOTED WITH TEMP OF 101.3 , S/P TRACH PLACEMENT , PER SPLUNK ARCHITECT DO BLOOD CULTURE ONLY , SHES RECOMMENDING TO DC PICC AND CHANGE IT , AND SENT TIP FOR CULTURE ORDER CARRIED OUT
--- NOTE | 2021-03-25 10:25 | NUR ---
TABLET REPAIR NOTES SEEN AND EVALUATED BY DR DELGADO , DISCUSSED LABS , X1 BM NOTED SOFT BROWN / BLACK , HYPOACTIVE BOWEL SOUNDS , NGT FEEDING HELD PT DIDNT TOLERATE FEEDING , TEMP OF 101.3 , S/P TRACH PLACEMENT , MD REMOVED UBALDO DRAIN NO BLEEDING NOTED , WILL CONTINUE TO MONITOR.
[2021-03-25] MEDS: FENTANYL CITRAT IV 2,500 MCG in IV NS 0.9% 200 ML IV PRN ×2 (10:36→20:58)
[2021-03-25] MEDS: PHENYLEPHRINE 100 MG in IV NS 0.9% 240 ML IV PRN (12:22)
--- NOTE | 2021-03-25 12:26 | NUR ---
SENIOR SUSTAINABILITY CONSULTANT NOTES EGD WITH PEG PLACEMENT ONGOING , OR TEAM AT BEDSIDE WITH DR FAGAN AND DR LYN , CONSENT SIGNED , NEOSYNEPRINE STARTED DUE TO LOW BP WITH ONGOING BT , PT STABLE AT THIS TIME , PER OP CHECKLIST OBTAINED , WILL CONTINUE TO MONITOR
--- NOTE | 2021-03-25 12:40 | NUR ---
MARKETING PROPOSAL SPECIALIST NOTES PATIENT STABLE S/P PEG / EGD PROCEDURE VSS , PER DR FAGAN HES WAS UNABLE TO INSERT PEG HE WILL TRY IT AGAIN SOME OTHER DAY OR HE WILL REFER IT TO SURGEON .
[2021-03-25] MEDS: MEROPENEM 500 MG in IV NS 0.9% 50 ML IV SCH ×2 (13:45→23:30)
--- NOTE | 2021-03-25 13:50 | NUR ---
WEIGHT LOSS CONSULTANT NOTES PATIENT STABLE PRIOR TO HD AND BLOOD TRANSFUSION , NO REACTION NOTED , TEMP 98.4 , HR 84 BP 92/45 WITH GUCCI @ 2MCG/KG/MIN , WILL CONTINUE TO MONITOR .
[2021-03-25] MEDS: MIDAZOLAM HCL 100 MG in IV NS 0.9% 80 ML IV PRN (15:15)
[2021-03-25] MEDS: MICAFUNGIN SODIUM 100 MG in IV NS 0.9% 100 ML IV SCH (15:39)
--- NOTE | 2021-03-25 19:06 | NUR ---
FARM MACHINE OPERATOR NOTES PATIENT STABLE AT THIS TIME SEDATED, RESPONSIVE TO DEEP PAIN STIMULI , TOLERATING CURRENT VENT SETTINGS WITH SPO2 OF 99% , SHILEY XLT IN PLACE WITH NO BLEEDING NOTED . SR 77 ON BEDSIDE MONITOR , FC DRAINING VIA GRAVITY , LEFT NGT PATENT AND INTACT CLAMPED , LENO PICC LINE WITH TPN@ 75ML/HR , VERSED @3MG/HR , FENTANYL @ 73MCG/KG/HR INFUSING WELL NS @ TKO , RIGHT IJ HD CATH PATENT AND INTACT . ALL NEEDS ATTENDED ,WILL CONTINUE TO MONITOR .
--- NOTE | 2021-03-25 19:31 | NUR ---
SCENIC DESIGNER OPENING NOTE: Rec'd pt in bed, sedated. On trach to mechanical vent, tolerating vent settings well. No resp distress noted at this time. SR on tele monitor. Left NGT in place, NPO dx. LENO PICC patent and flushed w/ TPN at 75ml/hr, Versed at 4ml/hr, and Fentanyl at 73mcg/hr. Right Zeb cath intact. Douglass catheter in place, patent and draining urine via gravity. No pain noted at this time. Safety measures in place. Will continue to monitor.
[2021-03-25] MEDS ORDERED: TPN BAG #18 IV SCH (20:20)
[2021-03-25] MEDS: INSULIN REGULAR, HUMAN 100 UNIT/ML 3 ML VIAL SQ PRN (23:28)
[2021-03-26] VITALS (52 sets, daily range): BP systolic 102–156; BP diastolic 46–83
[2021-03-26 04:44] LABS: BASOPHILS % (AUTO) 0.2 % (0.0-2.0); EOSINOPHILS % (AUTO) 0.5 % (0.0-6.0); HEMATOCRIT 21 % (39-51); LYMPHOCYTES # (AUTO) 0.7 K/uL (0.8-4.8); LYMPHOCYTES % (AUTO) 5.7 % (20.0-44.0); MEAN CORPUSCULAR HGB CONC 33 g/dl (31.0-36.0); MEAN CORPUSCULAR VOLUME 93 fL (80-96); MONOCYTES # (AUTO) 1.2 K/uL (0.1-1.30); MONOCYTES % (AUTO) 9.6 % (2.0-12.0); NEUTROPHILS # (AUTO) 10.4 K/uL (1.8-8.9); RED BLOOD CELL COUNT(AUTO) 2.23 MIL/uL (4.5-6.0); WHITE BLOOD COUNT (AUTO) 12.4 K/uL (4.3-11.0)
[2021-03-26 04:55] LABS: HEMOGLOBIN 6.8 g/dL (13.5-17.5)
[2021-03-26 04:59] LABS: BILIRUBIN,TOTAL 3.1 mg/dL (0.2-1.0); CALCIUM, SERUM 7.8 mg/dL (8.5-10.1); CREATININE 3.4 mg/dL (0.6-1.3); MAGNESIUM 1.9 mg/dL (1.8-2.4); PHOSPHORUS 5.4 mg/dL (2.5-4.9); POTASSIUM 3.9 mmol/L (3.5-5.1); TOTAL PROTEIN, SERUM 5.8 g/dL (6.4-8.2)
[2021-03-26 05:01] LABS: ALBUMIN 0.9 g/dL (3.4-5.0)
[2021-03-26 05:16] LABS: BAND % (MANUAL) 7 % (0.0-5.0); BASOPHILS % (MANUAL) 0 % (0.0-2.0); EOSINOPHILS % (MANUAL) 0 % (0-4); LYMPHOCYTES % (MANUAL) 4 % (16-48); MONOCYTES % (MANUAL) 4 % (0-11.0); NEUTROPHILS % (MANUAL) 85 (42-76)
[2021-03-26] MEDS: METOCLOPRAMIDE HCL 10 MG/2 ML VIAL IV SCH ×4 (05:16→23:07)
[2021-03-26 05:18] LABS: PLATELET COUNT (AUTO) 237 K/uL (150-450)
[2021-03-26] MEDS: BLOOD SUGAR DIAGNOSTIC 1 EACH STRIP IN SCH ×4 (05:24→23:43)
[2021-03-26] MEDS: INSULIN REGULAR, HUMAN 100 UNIT/ML 3 ML VIAL SQ PRN (05:24)
--- NOTE | 2021-03-26 05:52 | NUR ---
TRAVELER CHANGER NOTE: 0452: Rec'd critical lab results H/H 6.04/23 0546: Paged monumental stonemason Matilde Eaton NP. Rec'd order for 1 unit PRBC w/ HD today. Noted and carried out. Will endorse to day shift RN
--- NOTE | 2021-03-26 06:51 | NUR ---
LICENSED LOAN OFFICER ASSISTANT NOTE: Code status changed back to DNR.
--- NOTE | 2021-03-26 07:15 | NUR ---
CALL CENTER DIRECTOR NOTES RECEIVED PATIENT SEDATED , RESPONSIVE TO DEEP PAIN STIMULI , TOLERATING CURRENT VENT SETTINGS WITH SPO2 OF 100% , SHILEY XLT IN PLACE WITH NO BLEEDING NOTED . SR 99 ON BEDSIDE MONITOR , FC DRAINING VIA GRAVITY , LEFT NGT PATENT AND INTACT CLAMPED WITH MINIMAL GREEN OUTPUT VIA ASPIRATION , LEON PICC LINE WITH TPN@ 75ML/HR , VERSED @4MG/HR , FENTANYL @ 73MCG/KG/HR NS @ TKO INFUSING WELL , RIGHT IJ HD CATH PATENT AND INTACT . ALL NEEDS ATTENDED ,WILL CONTINUE TO MONITOR .
[2021-03-26] MEDS: NEPRO 1,000 ML BOTTLE GT PRN ×3 (07:20→09:34)
[2021-03-26] MEDS: PANTOPRAZOLE 40 MG VIAL IV SCH ×2 (08:09→20:43)
[2021-03-26] MEDS: ACETAMINOPHEN 325 MG TABLET PO PRN (08:09)
--- NOTE | 2021-03-26 09:10 | NUR ---
FIBER LOCKING SUPERVISOR NOTES SEEN AND EVALUATED BY DR DELGADO , DISCUSSED PT OFF PRESSORS , TEMP OF 99.6 , WITH ONGOING 1UNIT PRBC DUE TO H/H 6.04/23 , NOTED WITH 1 BM YESTERDAY HENRI/BROWN SOFT STOOL , HYPOACTIVE BOWEL SOUNDS , PEG PLACEMENT FAILED YESTERDAY BY DR FAGAN , PER MD START NGT FEEDING .
--- NOTE | 2021-03-26 09:23 | NUR ---
CREDIT RISK MODELER NOTES STARTED NGT FEEDING OF NEPHRO @ 10ML/HR X 24 HOURS PER DIETARY RECOMMENDATION , WILL TITRATE TPN IF PATIENT IS TOLERATING NGT FEEDINGS , WILL CONTINUE TO MONITOR ,
--- NOTE | 2021-03-26 09:24 | NUR ---
ADHESION TESTER NOTES SEEN AND EVALUATED BY DR ORTIZ , DISCUSSED LABS , CHEST XRAY AND CURRENT VENT SETTINGS WITH SPO2 OF 100% NO DISTRESS , S/P TRACH PLACEMENT YESTERDAY , TEMP OF 99.3 , OFF PRESSORS , OFF FENTANYL , VERSED @ 4MG/HR , TPN @ 75ML/HR , WITH ONGOING 1UNIT PRBC , STARTED NGT FEEDING OF NEPHRO @10ML/HR X 24 HOURS , MD AWARE .
[2021-03-26] MEDS ORDERED: TPN BAG #19 IV SCH (09:40)
--- NOTE | 2021-03-26 10:30 | NUR ---
GOLD STAMPER NOTES FENTANYL AND VERSED OFF FOR SEDATION VACATION , TOLERATING VENT SETTINGS WITH NO DISTRESS , WILL CONTINUE TO MONITOR .
[2021-03-26] MEDS: MEROPENEM 500 MG in IV NS 0.9% 50 ML IV SCH ×2 (11:00→23:07)
[2021-03-26] MEDS: MICAFUNGIN SODIUM 100 MG in IV NS 0.9% 100 ML IV SCH (11:39)
--- NOTE | 2021-03-26 12:35 | NUR ---
OIL AND GAS PRINCIPAL NOTES VERIFIED WITH DR DELGADO IF OK TO RESUME NGT , H/H 6.8/ , 1UNIT PRBC GIVEN , AND PENDING NM GI BLEED SCAN , PER MD OK TO RESUME GT FEEDING .
[2021-03-26] MEDS: HYDROMORPHONE 1 MG/1 ML DISP.SYRIN IV PRN ×3 (14:19→23:08)
--- NOTE | 2021-03-26 17:40 | NUR ---
CIGARETTE LIGHTER REPAIRER NOTES NOTIFIED SIGN DESIGNER NERY THAT PT IS OFF VERSED AND FENTANYL , OPENS EYES , DOESN'T FOLLOW COMMANDS , ASKED FOR ATIVAN PRN ATIVAN ORDER , PER MD WAIT FOR DR SHELLEY TO SEE THE PATIENT BEFORE GIVING ATIVAN 1MG Q6 PRN , ORDER CARRIED OUT .
--- NOTE | 2021-03-26 19:05 | NUR ---
RECEIVED PT OB BED ASLEEP OBTUNDED,REACT TO PAIN STIMULI, OPEN EYES BUT NOT TRACKING, ON TRACH/VENT SETTING PER MD FIO2 35% FIO2 99% BEDSIDE MONITOR READS SINUS RHYTHM 100'S PT HAVE LENO PICC LINE WITH ONGOING TPN @ 75ML/HR INFUSING WELL PT HAVE LNARES NGTUBE PLACEMENT WAS CHECKED AND VERIFIED WITH ONGOING JEVITY @ 10ML/HR RESIDUAL 3ML, LATEST TEMP OFF 100.[address], HAVE ISRAEL CATHETER ON PLACE WITH AURA YELLOW URINE DRAINING VIA GRAVITY, BED ON LOWEST POSITION AND LOCKED SIDE RAILS UP X2 WILL CONT TO MONITOR
--- NOTE | 2021-03-26 19:09 | NUR ---
PICK PULLING MACHINE TENDER NOTES PATIENT STABLE AT THIS TIME , OPENS EYES, DOESNT TRACK , RESPONSIVE TO DEEP PAIN STIMULI , TOLERATING CURRENT VENT SETTINGS WITH SPO2 OF 100% , SHILEY XLT IN PLACE WITH NO BLEEDING NOTED . ST101 ON BEDSIDE MONITOR , FC DRAINING VIA GRAVITY , LEFT NGT PATENT AND INTACT WITH NEPHRO @ 10ML/HR WITH NO RESIDUALS NOTED , LENO PICC LINE WITH TPN@ 75ML/HR ,NS @ TKO INFUSING WELL , RIGHT IJ HD CATH PATENT AND INTACT . ALL NEEDS ATTENDED ,REPORT GIVEN TO MAYTE FOR CONTINUITY OF CARE
[2021-03-26] MEDS ORDERED: TPN BAG #20 IV SCH (22:00)
[2021-03-27] VITALS (46 sets, daily range): BP systolic 126–178; BP diastolic 59–101
--- NOTE | 2021-03-27 00:05 | NUR ---
GTUBE FEEDING HOLD DUE TO RESIDUAL OF 45ML, PT IS ONLY GETTING 10ML/HR WILL CONT TO MONITOR
[2021-03-27] MEDS: ACETAMINOPHEN 325 MG TABLET PO PRN ×3 (02:23→14:36)
[2021-03-27] MEDS: ACETAMINOPHEN 650 MG/SUPP.RECT RC PRN (02:27)
--- NOTE | 2021-03-27 02:33 | NUR ---
RESIDUAL STILL >40 ML WILL CONT TO HOLD FEEDING CHARGE NURSE MADE AWARE
[2021-03-27] MEDS: METOCLOPRAMIDE HCL 10 MG/2 ML VIAL IV SCH ×4 (05:10→23:02)
[2021-03-27] MEDS: INSULIN REGULAR, HUMAN 100 UNIT/ML 3 ML VIAL SQ PRN ×2 (05:20→23:30)
[2021-03-27] MEDS: BLOOD SUGAR DIAGNOSTIC 1 EACH STRIP IN SCH ×4 (05:20→23:30)
[2021-03-27 06:04] LABS: BASOPHILS % (AUTO) 0.4 % (0.0-2.0); EOSINOPHILS % (AUTO) 0.8 % (0.0-6.0); HEMATOCRIT 23 % (39-51); HEMOGLOBIN 7.8 g/dL (13.5-17.5); LYMPHOCYTES # (AUTO) 0.7 K/uL (0.8-4.8); LYMPHOCYTES % (AUTO) 6.6 % (20.0-44.0); MEAN CORPUSCULAR HGB CONC 33 g/dl (31.0-36.0); MEAN CORPUSCULAR VOLUME 92 fL (80-96); MONOCYTES # (AUTO) 1.4 K/uL (0.1-1.30); MONOCYTES % (AUTO) 12.5 % (2.0-12.0); NEUTROPHILS # (AUTO) 8.9 K/uL (1.8-8.9); NEUTROPHILS % (AUTO) 79.7 % (43.0-81.0); PLATELET COUNT (AUTO) 166 K/uL (150-450); RED BLOOD CELL COUNT(AUTO) 2.53 MIL/uL (4.5-6.0); WHITE BLOOD COUNT (AUTO) 11.2 K/uL (4.3-11.0)
[2021-03-27 06:05] LABS: CREATININE 3.1 mg/dL (0.6-1.3); MAGNESIUM 1.7 mg/dL (1.8-2.4); PHOSPHORUS 4.8 mg/dL (2.5-4.9); POTASSIUM 3.9 mmol/L (3.5-5.1)
--- NOTE | 2021-03-27 06:43 | NUR ---
PT ON BED SLEEPING, STILL OBTUNDED, OPEN EYES TO STIMULI AND PAIN BUT NOT TRACKING OR FOLLOWING TO ANY COMMANDS, ON TRACH/VENT SETTING ORDERED BY MD FIO2 35% FIO2 99% NO SIGN OF RESPIRATORY DISTRESS, GTUBE FEEDING HELD DUE TO HIGH RESIDUAL, NO SIGNIFICANT CHANGES ON CONDITION NOTED, ALL DUE MEDS GIVEN, BED ON LOWEST POSITION AND LOCKED SIDE RAILS UP X 2 WILL ENDORSED TO AM SHIFT NURSE
--- NOTE | 2021-03-27 07:20 | NUR ---
RN OPENING NOTES RECEIVED PATIENT OBTUNDED, TRACH TO VENT AT AC 28 TV 500 FIO2 35% PEEP 5. ST ON BEDSIDE MONITOR. LEFT NGT IN PLACE WITH FEED ON HOLD DUE TO HIGH RESIDUAL. LENO PICC WITH TPN AT 75M/HR AND N/S TKO. RIGHT IJ CATH IN PLACE. ISRAEL DRAINING BY GRAVITY. SAFETY CHECKS IN PLACE. WILL CONTINUE TO MONITOR.
--- NOTE | 2021-03-27 07:50 | NUR ---
RT PATIENT REC'D TRACHED ON [facility] VENT WITH ORDERED SETTINGS ROE WELL. TRACH SECURE AND IN PROPER POSITION. AIRWAY SUCTIONED AND PATENT. PATIENT APPEARS COMFORTABLE AT THIS TIME. VENT ALARMS CHECKED + AUDIBLE. CLOVISU BAG AT HOB. Addendum: 03/28/21 at 1403 by TYLOR WINKLER RT Amended: Links added.
[2021-03-27] MEDS: PANTOPRAZOLE 40 MG VIAL IV SCH ×2 (08:26→20:13)
[2021-03-27] MEDS: MEROPENEM 500 MG in IV NS 0.9% 50 ML IV SCH ×2 (10:39→23:02)
[2021-03-27] MEDS: HYDROMORPHONE 1 MG/1 ML DISP.SYRIN IV PRN ×3 (10:39→20:59)
[2021-03-27] MEDS ORDERED: TPN BAG #21 IV SCH (11:00)
[2021-03-27] MEDS: MICAFUNGIN SODIUM 100 MG in IV NS 0.9% 100 ML IV SCH (11:00)
[2021-03-27] MEDS: Magnesium 1GM/D5W 100ML PREMIX 100 ML IV SCH ×2 (14:36→15:48)
--- NOTE | 2021-03-27 18:55 | NUR ---
RN OPENING NOTES PATIENT REMAINS OBTUNDED, OPENS EYES SPONTANEOUSLY BUT NO TRACKING, NON INTERACTIVE. TRACH TO VENT AT AC 28 TV 500 FIO2 35% PEEP 5. ST ON BEDSIDE MONITOR. LEFT NGT IN PLACE WITH FEED ON HOLD STILL DUE TO HIGH RESIDUAL. LENO PICC WITH TPN AT 75M/HR AND N/S TKO. RIGHT IJ CATH IN PLACE. ISRAEL DRAINED 1900MLS BY GRAVITY. SAFETY CHECKS IN PLACE. WILL ENDORSE TO NIGHT RN FOR CONTINUITY OF CARE Addendum: 03/27/21 at 1929 by ASHLYN UMAÑA RN *RN CLOSING NOTES PATIENT REMAINS OBTUNDED, OPENS EYES SPONTANEOUSLY BUT NO TRACKING, NON INTERACTIVE. TRACH TO VENT AT AC 28 TV 500 FIO2 35% PEEP 5. ST ON BEDSIDE MONITOR. LEFT NGT IN PLACE WITH FEED ON HOLD STILL DUE TO HIGH RESIDUAL. LENO PICC WITH TPN AT 75M/HR AND N/S TKO. RIGHT IJ CATH IN PLACE. ISRAEL DRAINED 1900MLS BY GRAVITY. SAFETY CHECKS IN PLACE. WILL ENDORSE TO NIGHT RN FOR CONTINUITY OF CARE.
--- NOTE | 2021-03-27 19:15 | NUR ---
RECEIVED PT OB BED ASLEEP OBTUNDED,REACT TO PAIN STIMULI, OPEN EYES BUT NOT TRACKING, ON TRACH/VENT SETTING PER MD FIO2 35% FIO2 99% BEDSIDE MONITOR READS SINUS RHYTHM 100'S PT HAVE LENO PICC LINE WITH ONGOING TPN @ 75ML/HR INFUSING WELL PT HAVE LNARES NGTUBE PLACEMENT WAS CHECKED AND VERIFIED LATEST TEMP OFF 100.[address], HAVE ISRAEL CATHETER ON PLACE WITH AURA YELLOW URINE DRAINING VIA GRAVITY, BED ON LOWEST POSITION AND LOCKED SIDE RAILS UP X2 WILL CONT TO MONITOR
--- NOTE | 2021-03-27 20:00 | NUR ---
REPORTED TO ZACKERY GARAY THAT PT HAVE ELEVATED BLOOD PRESSURE SBP 178/84 WITH ORDER HYDRALAZINE 10MG IVP Q4H PRN FOR SBP>160 NOTED AND CARRIED OUT
[2021-03-27] MEDS: hydrALAZINE HCL IV 20 MG VIAL IV PRN (20:13)
[2021-03-27] MEDS ORDERED: TPN BAG #22 IV SCH (23:30)
[2021-03-28] VITALS (42 sets, daily range): BP systolic 114–174; BP diastolic 53–143
[2021-03-28] MEDS: IV NS 0.9% 250 ML IV PRN (00:06)
[2021-03-28] MEDS: LORAZEPAM INJ 2 MG/ML VIAL IV PRN (01:12)
[2021-03-28] MEDS: hydrALAZINE HCL IV 20 MG VIAL IV PRN (02:09)
[2021-03-28] MEDS: ACETAMINOPHEN 650 MG/SUPP.RECT RC PRN ×2 (03:00→15:52)
[2021-03-28] MEDS: HYDROMORPHONE 1 MG/1 ML DISP.SYRIN IV PRN ×2 (03:48→15:52)
[2021-03-28 04:26] LABS: BASOPHILS % (AUTO) 0.3 % (0.0-2.0); EOSINOPHILS % (AUTO) 0.2 % (0.0-6.0); HEMATOCRIT 25 % (39-51); HEMOGLOBIN 8.4 g/dL (13.5-17.5); LYMPHOCYTES # (AUTO) 0.6 K/uL (0.8-4.8); LYMPHOCYTES % (AUTO) 4.9 % (20.0-44.0); MEAN CORPUSCULAR HGB CONC 33 g/dl (31.0-36.0); MEAN CORPUSCULAR VOLUME 92 fL (80-96); MONOCYTES # (AUTO) 1.4 K/uL (0.1-1.30); NEUTROPHILS # (AUTO) 10.7 K/uL (1.8-8.9); NEUTROPHILS % (AUTO) 83.6 % (43.0-81.0); PLATELET COUNT (AUTO) 247 K/uL (150-450); RED BLOOD CELL COUNT(AUTO) 2.74 MIL/uL (4.5-6.0); WHITE BLOOD COUNT (AUTO) 12.8 K/uL (4.3-11.0)
[2021-03-28 04:44] LABS: BILIRUBIN,TOTAL 2.5 mg/dL (0.2-1.0); CALCIUM, SERUM 8.4 mg/dL (8.5-10.1); CREATININE 2.7 mg/dL (0.6-1.3); MAGNESIUM 1.8 mg/dL (1.8-2.4); PHOSPHORUS 4.6 mg/dL (2.5-4.9); POTASSIUM 3.9 mmol/L (3.5-5.1); TOTAL PROTEIN, SERUM 7.1 g/dL (6.4-8.2)
[2021-03-28 04:51] LABS: ALBUMIN 1.2 g/dL (3.4-5.0)
[2021-03-28] MEDS: METOCLOPRAMIDE HCL 10 MG/2 ML VIAL IV SCH ×3 (05:31→17:24)
[2021-03-28] MEDS: BLOOD SUGAR DIAGNOSTIC 1 EACH STRIP IN SCH ×3 (05:38→17:32)
[2021-03-28] MEDS: INSULIN REGULAR, HUMAN 100 UNIT/ML 3 ML VIAL SQ PRN (05:38)
--- NOTE | 2021-03-28 07:50 | NUR ---
RT PATIENT REC'D TRACHED ON [facility] VENT WITH ORDERED SETTINGS ROE WELL. TRACH SECURE AND IN PROPER POSITION. AIRWAY SUCTIONED AND PATENT. PATIENT APPEARS COMFORTABLE AT THIS TIME. VENT ALARMS CHECKED + AUDIBLE. CLOVISU BAG AT HOB. Addendum: 03/28/21 at 1403 by TYLOR WINKLER RT Amended: Links added.
[2021-03-28] MEDS: PANTOPRAZOLE 40 MG VIAL IV SCH ×2 (08:17→21:17)
--- NOTE | 2021-03-28 10:45 | NUR ---
COLLAR BASTER NOTES DIALYSIS NURSE ON UNIT, PATIENT WILL BE DIALYZE AT BED SIDE. PATIENT IN STABLE CONDITION. WILL CONTINUE TO MONITOR.
[2021-03-28] MEDS ORDERED: TPN BAG #23 IV SCH (12:00)
[2021-03-28] MEDS: MEROPENEM 500 MG in IV NS 0.9% 50 ML IV SCH ×2 (12:40→22:15)
--- NOTE | 2021-03-28 12:40 | NUR ---
CLOTH SHEARING SUPERVISOR NOTES S/P HD WITH 1L OUTPUT, TOLERATED THE PROCEDURE. NO SIGNS OF DISTRESS NOTED, WILL CONTINUE TO MONITOR.
[2021-03-28] MEDS: MICAFUNGIN SODIUM 100 MG in IV NS 0.9% 100 ML IV SCH (12:58)
--- NOTE | 2021-03-28 15:25 | NUR ---
RT PER DR VO VT INCREASED TO 550. Addendum: 03/28/21 at 1709 by TYLOR WINKLER RT Amended: Links added.
[2021-03-28] MEDS ORDERED: VANCOMYCIN 1 GM in IV D5W 250ml IV ONE (17:00)
--- NOTE | 2021-03-28 18:38 | NUR ---
LATEX CASTER NOTES PT ON BED RESTING, OPEN EYES TO VERBAL STIMULI AND PAIN BUT NOT TRACKING OR FOLLOWING TO ANY COMMANDS, ON TRACH/VENT SETTING AC 28, TV 550, FIO2 35%, PEEP 5. NO SIGN OF RESPIRATORY DISTRESS, GTUBE FEEDING STILL CLAPMED, IV ACCESS ON LENO PICC LINE WITH TPN RUNNING 75 ML/HR, NOTED WITH RIJ FOR HD ACCESS, S/P HD WITH 1L OF OUTPUT, TOLERATED WELL, NOTED WITH ISRAEL CATHETER, INTACT AND PATENT, SAFETY MEASURES MAINTAINED, BED ON LOWEST POSITION AND LOCKED SIDE RAILS UP X 2, WILL ENDORSE TO WOOD CLUB NECK WHIPPER NURSE FOR ANDREW.
--- NOTE | 2021-03-28 19:30 | NUR ---
RN NOTE RECEIVED PT ON TRACH/VENT. NO SIGNS OF DISTRESS NOTED. O2 SAT AT 97%. PT OPEN EYES ON VERBAL STIMULI, NOT FOLLOWING ANY COMMANDS. ON TELE MONITOR SHOWS SR. PT WITH NGT, CLAMPED. ON TPN RUNNING AT 75 ML/HR, PICC LINE PATENT AND INTACT. RIJ HD CATH INTACT. ISRAEL DRAINING URINE WELL. ALL SAFETY MEASURES IN PLACE PER PROTOCOL. WILL CONTINUE TO MONITOR.
[2021-03-29] VITALS (29 sets, daily range): BP systolic 119–157; BP diastolic 56–89
[2021-03-29] MEDS: METOCLOPRAMIDE HCL 10 MG/2 ML VIAL IV SCH ×4 (00:01→17:02)
[2021-03-29] MEDS: BLOOD SUGAR DIAGNOSTIC 1 EACH STRIP IN SCH ×4 (00:10→17:27)
[2021-03-29] MEDS: INSULIN REGULAR, HUMAN 100 UNIT/ML 3 ML VIAL SQ PRN ×2 (00:11→06:22)
[2021-03-29] MEDS: ACETAMINOPHEN 650 MG/SUPP.RECT RC PRN (00:40)
[2021-03-29] MEDS ORDERED: TPN BAG #24 IV SCH (01:00)
[2021-03-29 05:42] LABS: BILIRUBIN,TOTAL 2.2 mg/dL (0.2-1.0); CALCIUM, SERUM 7.8 mg/dL (8.5-10.1); CREATININE 2.1 mg/dL (0.6-1.3); MAGNESIUM 1.5 mg/dL (1.8-2.4); PHOSPHORUS 2.9 mg/dL (2.5-4.9); POTASSIUM 3.4 mmol/L (3.5-5.1); TOTAL PROTEIN, SERUM 6.5 g/dL (6.4-8.2)
[2021-03-29 05:47] LABS: ALBUMIN 1.2 g/dL (3.4-5.0)
[2021-03-29] MEDS: IV NS 0.9% 250 ML IV PRN (06:24)
--- NOTE | 2021-03-29 07:00 | NUR ---
RN NOTE NO SIGNIFICANT CHANGES NOTED ON PT. PT REMAIN SR ON TELE MONITOR. TMAX AT 100.9. TYLENOL WAS GIVEN, COOLING MEASURES APPLIED. GT FEEDING KEPT ON HOLD. CONTINUE ON TPN AT 75ML/HR. NO S/SX OF INFILTRATION NOTED. ISRAEL DRAINING WELL, OUTPUT AT 22OOCC. KEPT CLEAN AND COMFORTABLE. REPOSITIONED Q2H. ALL SAFETY MEASURES MAINTAINED. WILL ENDORSE TO NEXT SHIFT NURSE FOR ANDREW.
--- NOTE | 2021-03-29 07:15 | NUR ---
RN NOTE RECEIVED PT ON TRACH/VENT. NO SIGNS OF DISTRESS NOTED AT THIS TIME. O2 SAT AT 98%. PT OPEN EYES ON VERBAL STIMULI, NOT FOLLOWING ANY COMMANDS. ON TELE MONITOR SHOWS SR. PT WITH NGT, CLAMPED. ON TPN RUNNING AT 75 ML/HR, LENO PICC LINE PATENT AND INTACT. RIJ HD CATH INTACT. ISRAEL CATHETER DRAINING VIA GRAVITY WITH DARK YELLOW URINE. ALL SAFETY MEASURES IN PLACE PER PROTOCOL. WILL CONTINUE TO MONITOR.
--- NOTE | 2021-03-29 07:30 | NUR ---
RT PATIENT REC'D TRACHED ON [facility] VENT WITH ORDERED SETTINGS ROE WELL. TRACH SECURE AND IN PROPER POSITION. AIRWAY SUCTIONED AND PATENT. PATIENT APPEARS COMFORTABLE AT THIS TIME. VENT ALARMS CHECKED + AUDIBLE. CLOVISU BAG AT HOB. Addendum: 03/29/21 at 1739 by TYLOR WINKLER RT Amended: Links added.
[2021-03-29 08:08] LABS: ABG BASE EXCESS 1.5 mmol/L; ABG OXYGEN SATURATION 96.5 % (92.0-98.5); ABG PCO2 30.6 mmHg (35.0-45.0); ABG PH 7.518 (7.350-7.450); ABG PO2 88.8 mmHg (75.0-100.0); AaDO2 125.2 mmHg; COHb 1.3 % (0.5-1.5); O2Hb 94.3 % (94.0-97.0); SITE, ABG Right Radial
[2021-03-29] MEDS: Magnesium 1GM/D5W 100ML PREMIX 100 ML IV SCH ×2 (08:09→09:04)
[2021-03-29] MEDS: PANTOPRAZOLE 40 MG VIAL IV SCH ×2 (08:09→21:44)
[2021-03-29] MEDS: POTASSIUM CL. PREMIX PERIPHER. 50 ML IV SCH ×2 (08:09→09:04)
[2021-03-29 09:40] LABS: BASOPHILS # (AUTO) 0.1 K/uL (0.0-0.2); BASOPHILS % (AUTO) 0.5 % (0.0-2.0); EOSINOPHILS % (AUTO) 1.3 % (0.0-6.0); HEMATOCRIT 21 % (39-51); LYMPHOCYTES # (AUTO) 1.1 K/uL (0.8-4.8); LYMPHOCYTES % (AUTO) 9.3 % (20.0-44.0); MEAN CORPUSCULAR HGB CONC 33 g/dl (31.0-36.0); MEAN CORPUSCULAR VOLUME 95 fL (80-96); MONOCYTES # (AUTO) 1.7 K/uL (0.1-1.30); MONOCYTES % (AUTO) 14.5 % (2.0-12.0); NEUTROPHILS # (AUTO) 8.6 K/uL (1.8-8.9); NEUTROPHILS % (AUTO) 74.4 % (43.0-81.0); PLATELET COUNT (AUTO) 102 K/uL (150-450); WHITE BLOOD COUNT (AUTO) 11.5 K/uL (4.3-11.0)
[2021-03-29] MEDS: NEPRO 1,000 ML BOTTLE GT PRN (09:47)
[2021-03-29 09:52] LABS: HEMOGLOBIN 6.9 g/dL (13.5-17.5)
--- NOTE | 2021-03-29 09:59 | NUR ---
DIVISION OFFICER WEAPONS DEPARTMENT NOTES SEEN AND EXAMINED BY DR. DELGADO. PER MD TO RESUME TF AND START @ 20ML/HR. WILL CONTINUE TO MONITOR.
[2021-03-29] MEDS: MEROPENEM 500 MG in IV NS 0.9% 50 ML IV SCH (10:00)
[2021-03-29] MEDS: MICAFUNGIN SODIUM 100 MG in IV NS 0.9% 100 ML IV SCH (10:54)
[2021-03-29] MEDS ORDERED: diphenhydrAMINE HCL 50 MG/ML VIAL IV ONE (12:00)
[2021-03-29] MEDS ORDERED: ACETAMINOPHEN 325 MG TABLET PO ONE (12:00)
[2021-03-29 12:02] LABS: LYMPHOCYTES % (MANUAL) 7 % (16-48); MONOCYTES % (MANUAL) 10 % (0-11.0); NEUTROPHILS % (MANUAL) 83 (42-76)
[2021-03-29] MEDS ORDERED: TPN BAG #25 IV SCH (14:00)
--- NOTE | 2021-03-29 19:00 | NUR ---
RN NOTE PT ON TRACH/VENT. NO SIGNS OF DISTRESS NOTED AT THIS TIME. O2 SAT AT 98%. PT OPEN EYES ON VERBAL STIMULI, NOT FOLLOWING ANY COMMANDS. ON TELE MONITOR SHOWS SR. PT WITH NG TF WITH NEPRO RUNNING 20ML/HR, MINIMAL RSV. ON TPN RUNNING AT 75 ML/HR, LENO PICC LINE PATENT AND INTACT. RIJ HD CATH INTACT. ISRAEL CATHETER DRAINING VIA GRAVITY WITH DARK YELLOW URINE. ALL SAFETY MEASURES IN PLACE PER PROTOCOL. WILL ENDORSE TO STUFFED CASING TIER NURSE FOR ANDREW.
--- NOTE | 2021-03-29 19:30 | NUR ---
RN NOTES RECEIVED PATIENT WITH TRACH CONNECTED TO VENT SETTING AC 28 TV 550 FIO2 35% AND PEEP 5. SATURATION 99%.. SINUS RHYTHM ON MONITOR. ABLE TO OPEN EYES BUT NOT FOLLOWING COMMAND. NO APPARENT DISTRESS. NO FACIAL COMPLAIN OF PAIN. WITH LEFT NGTF NEPHRO @ 20 ML/HR INTACT AND PATENT IV SITE ON LENO PICC LINE WITH TPN @ 75 ML/HR . RIJ HD CATH WITH DRY AND CLEAN DRESSING. KEPT PT CLEAN AND DRY AND PATIENT ON BARIMAXX BED. ISRAEL CATH DRAINED GRAVITY WITH AURA COLOR URINE.
[2021-03-30] VITALS (35 sets, daily range): BP systolic 100–160; BP diastolic 62–100
[2021-03-30] MEDS: MEROPENEM 500 MG in IV NS 0.9% 50 ML IV SCH ×3 (00:09→22:26)
[2021-03-30] MEDS: METOCLOPRAMIDE HCL 10 MG/2 ML VIAL IV SCH ×5 (00:11→23:42)
[2021-03-30] MEDS: BLOOD SUGAR DIAGNOSTIC 1 EACH STRIP IN SCH ×4 (00:11→17:04)
[2021-03-30] MEDS: ACETAMINOPHEN 325 MG TABLET PO PRN ×2 (02:52→17:19)
--- NOTE | 2021-03-30 02:57 | NUR ---
RN NOTES PATIENT TEMP 101.2 DEG [facility]. TYLENOL PRN ADMINISTERED ADN WILL CHECKED AFTER AN HOUR. COOLING MEASURES CONTINUE TO PROVIDE.
--- NOTE | 2021-03-30 04:00 | NUR ---
RN NOTES RECHECKED TEMPERATURE LATEST TEMP 100.1 , COOLING MEASURES CONTINUE. REMAINED SR ON MONITOR.
[2021-03-30 04:44] LABS: BASOPHILS # (AUTO) 0.1 K/uL (0.0-0.2); BASOPHILS % (AUTO) 0.7 % (0.0-2.0); EOSINOPHILS % (AUTO) 1.7 % (0.0-6.0); HEMATOCRIT 23 % (39-51); LYMPHOCYTES % (AUTO) 9.6 % (20.0-44.0); MEAN CORPUSCULAR HGB CONC 34 g/dl (31.0-36.0); MEAN CORPUSCULAR VOLUME 90 fL (80-96); MONOCYTES # (AUTO) 1.5 K/uL (0.1-1.30); MONOCYTES % (AUTO) 14.3 % (2.0-12.0); NEUTROPHILS # (AUTO) 7.9 K/uL (1.8-8.9); NEUTROPHILS % (AUTO) 73.7 % (43.0-81.0); PLATELET COUNT (AUTO) 160 K/uL (150-450); RED BLOOD CELL COUNT(AUTO) 2.59 MIL/uL (4.5-6.0); WHITE BLOOD COUNT (AUTO) 10.7 K/uL (4.3-11.0)
[2021-03-30 05:10] LABS: BILIRUBIN,TOTAL 2.4 mg/dL (0.2-1.0); CALCIUM, SERUM 8.1 mg/dL (8.5-10.1); CREATININE 1.9 mg/dL (0.6-1.3); MAGNESIUM 1.5 mg/dL (1.8-2.4); PHOSPHORUS 3.3 mg/dL (2.5-4.9); POTASSIUM 3.2 mmol/L (3.5-5.1); TOTAL PROTEIN, SERUM 7.2 g/dL (6.4-8.2)
[2021-03-30 05:12] LABS: ALBUMIN 1.3 g/dL (3.4-5.0)
[2021-03-30] MEDS ORDERED: POTASSIUM CHLORIDE 20 MEQ POWDER PACKET GT ONE (07:00)
[2021-03-30] MEDS ORDERED: Magnesium 1GM/D5W 100ML PREMIX 100 ML IV ONE (07:00)
--- NOTE | 2021-03-30 07:15 | NUR ---
RN NOTES PATIENT REMAINED STABLE EXCEPT HAVING ON AND OFF FEVER. TMAX 101.2 LATEST 100.8 DEGREE FHARENHEIGHT. TRACH AND VENT SETTING TOLERATED WELL. VSS. REMAINED SR ON MONITOR . NO FACIAL COMPLAIN OF PAIN. FREQ. SUCTION PROVIDED. NGTF TOLERATED W/ HOB ELEVATED. WOUND DRESSING CHANGED. KEPT PT CLEAN AND COMFORTABLE IN BED. BARIMAXX KEPT ON. ISRAEL CATH DRAINED WITH GOOD URINE OUTPUT. LENO PICC LINE INTACT AND PATENT. KEPT PT CLEAN AND DRY. WILL ENDORSED CONTINUITY OF CARE TO AM NURSE. 0700 AM - SEEN AND EXAMINED BY DR. DOMINGUEZ AND WANTED TO REMOVED HD CATH AND ISRAEL CATH AND PLACED A NEW ISRAEL CATH PER DR. DOMINGUEZ.
--- NOTE | 2021-03-30 07:25 | NUR ---
WOUND CARE FOLLOW UP: PT SEEN FOR SACRAL DEEP TISSUE INJURY WHICH IS NOW RESOLVED. PT NOTED TO BE INCONTINENT OF BLACK STOOL AND HAS SOME INCONTINENCE ASSOCIATED SKIN DAMAGE TO GLUTEAL CREASE. PT ALSO NOTED TO HAVE GENERALIZED EDEMA WITH SOME AREAS OF INTACT EDEMA BLISTERS ON ABDOMEN AND BACK. NO DRAINAGE OR ERYTHEMA NOTED. RECOMMENDATIONS MADE FOR SKIN PROTECTION. DISCUSSED WITH NURSING STAFF. PT IS ON [facility] AIR BED. IN AGREEMENT WITH PLAN OF CARE.
[2021-03-30] MEDS: PANTOPRAZOLE 40 MG VIAL IV SCH ×2 (07:51→22:26)
--- NOTE | 2021-03-30 08:00 | NUR ---
RN NOTES RECEIVED PATIENT TRACHEA VENT DEPENDENT FIO2-35, PEEP-5. PATIENT AWAKE,ABLE TO RESPOND CALLS. SUCTION, MOUTH ACRE DONE. PATIENT FEBRILE 100.1F. COOLING MEASURE GIVEN. PER SHEEP AND WHEAT FARMER CHANGE ALL TUBBING , ORDERED MIDLINE INSERTION. VSS, ISRAEL DRAINING VIA GRAVITY. SEEN PATIENT WOUND NURSE SACRAL DTI RESOLVES, GET NEW ORDER. ASSIST TURN AND REPOSTION Q 2 HR. PATIENT OBESE, HAS BPX1. EDEMA BILATERAL UPPER AND LOWER EXTREMITIES. RECHECKED PLACEMENT AND RESIDUAL OF NGT FEEDING. IV ACCESS ON LEFT AC PICC LINE REPLACING MF 100 ML/HR. ASSIST TURN AND REPOSTION Q 2 HR.
[2021-03-30] MEDS: IV NS 0.9% 250 ML IV PRN (08:05)
--- NOTE | 2021-03-30 08:51 | NUR ---
DR BRAVO NOTIFIED OF EXAM CT PARA, AND WILL NOTIFY US WITH STATUS OF EXAM AYANNA
--- NOTE | 2021-03-30 10:25 | NUR ---
RN NOTES CALLED PATIENT SISTER NAME LIANE REEVES AND GET VERBAL CONSENT CT GUIDED THORACENTESIS CONSENT . CO SIGH CO WORKER LEXY MITTAL.
--- NOTE | 2021-03-30 12:00 | NUR ---
RN NOTES SEEN PATIENT HOSPITALIST DR RESENDIZ. ORDER IS CONTINUED FEEDING NEPRO 20MCC/HR, AND FOLLOW UP WITH ID, AND SURGEON FOR TPN INFUSION.
[2021-03-30] MEDS: MICAFUNGIN SODIUM 100 MG in IV NS 0.9% 100 ML IV SCH (12:30)
[2021-03-30] MEDS ORDERED: TPN BAG #26 IV SCH (12:30)
--- NOTE | 2021-03-30 12:57 | NUR ---
rn notes get picc line insertion order, because of TPN infusion order. warehouse receiving clerk notified.
--- NOTE | 2021-03-30 13:05 | NUR ---
RN NOTES GET CONSENT FORM VERBAL FROM SISTER NAME LIANE, FOR PICC ALTAF INSERTION. CO-SIGN GEL PIPELINER NURSE.
--- NOTE | 2021-03-30 13:40 | NUR ---
RN NOTES Continue with NG feeding of Nepro at 20ml/hr and recommend to increase to 35ml/hr x 24 hrs + Prostat TID to better meet nutrients need.
--- NOTE | 2021-03-30 15:00 | NUR ---
rn notes CT guided drainage done with radiologist Dr Heredia for paracentesis removed 506 ml output. Send fluid for gram stain, culture/sensitivity lab via rn.
[2021-03-30] MEDS: NEPRO 1,000 ML BOTTLE GT PRN (17:09)
--- NOTE | 2021-03-30 17:19 | NUR ---
RN NOTES ADMINISTERED TYLENOL 650 MG PO PRN VIA NGT CRASHED TEMPERATURE OF 100.5F. ALSO ADMINISTERED DUE MEDICATION, BS-108MG/DL.
--- NOTE | 2021-03-30 18:30 | NUR ---
RN NOTES RECHECKED T-99.5 F, PATIENT STABLE INFUSING TPN ON LEFT PICC LINE 74.18ML/HR INTACT, AND TKO RIGHT MIDLINE ON RIGHT UA INTACT, DUE MEDICATION ADMINISTERED, VSS, ASSIST TURN AND REPOSTION Q 2 HR, DUE MEDICATION ADMINISTERED, SUCTION, MOUTH CARE DONE. ISRAEL DRAINING VIA GRAVITY OUTPUT WAS 2400 ML A SHIFT. RUNNING NEPRO 25 ML/HR GOAL IS TITRATED 35 ML ON 24 HR. NO RESIDUAL. CALL LIGHT WITHIN TO REACH. ENDORSED ONCOMING NURSE FOLLOW PLAN OF CARE.
[2021-03-30] MEDS ORDERED: VANCOMYCIN 1 GM in IV D5W 250 ML IV ONE (20:00)
--- NOTE | 2021-03-30 20:13 | NUR ---
Received patient lisette mcgregor 7 xlt on vent. No respiratory distress noted. Patient tolerating vent settings. Sx'd small amount of thick white secretions. Vent alarms set and audible. Trach is secured cuff power line lineman. Vent plugged into red outlet. Continue to monitor. Addendum: 03/30/21 at 2016 by LINETTE ARCHER RT Amended: Links added.
[2021-03-30] MEDS: LORAZEPAM INJ 2 MG/ML VIAL IV PRN (23:42)
[2021-03-30] MEDS: hydrALAZINE HCL IV 20 MG VIAL IV PRN (23:43)
[2021-03-31] VITALS (46 sets, daily range): BP systolic 114–184; BP diastolic 54–85
[2021-03-31] MEDS ORDERED: TPN BAG #27 IV SCH (02:00)
--- NOTE | 2021-03-31 02:24 | NUR ---
PATIENT AWAKE HAS TRACH AC 20, TV 550, FI02 35%, PEEP 5, SAT 100%. PATIENTS LUNGS DIMINISHED. ON MONITOR SINUS TEMP 99.8 HAS NGT NO RESIDUAL WHEN CHECK NEPRO INFUSING AT 35CC. HAS UPPER MID-LINE AND NOW HAS A NEW PICC- LINE IN UPPER LEFT ARM. TPN INFUSING AT74.14CC HR.NS AT 10CCHR. F/C WITH LARGE AMOUNT OF URINE DRAINING AURA IN COLOR. BLOOD SUGAR 0000 125 NO INSULIN GIVEN. PATIENT B/P 163/79 GIVEN APRESOLINE AT 2343 IVP, ATIVAN 1 MG 2342 IVP. NO SIGNS OF DISTRESS NOTED.
[2021-03-31 04:38] LABS: BASOPHILS # (AUTO) 0.1 K/uL (0.0-0.2); BASOPHILS % (AUTO) 1.1 % (0.0-2.0); EOSINOPHILS % (AUTO) 2.1 % (0.0-6.0); HEMATOCRIT 23 % (39-51); HEMOGLOBIN 7.7 g/dL (13.5-17.5); LYMPHOCYTES # (AUTO) 0.9 K/uL (0.8-4.8); LYMPHOCYTES % (AUTO) 9.8 % (20.0-44.0); MEAN CORPUSCULAR HGB CONC 34 g/dl (31.0-36.0); MEAN CORPUSCULAR VOLUME 91 fL (80-96); MONOCYTES # (AUTO) 1.5 K/uL (0.1-1.30); MONOCYTES % (AUTO) 15.6 % (2.0-12.0); NEUTROPHILS # (AUTO) 6.8 K/uL (1.8-8.9); NEUTROPHILS % (AUTO) 71.4 % (43.0-81.0); PLATELET COUNT (AUTO) 163 K/uL (150-450); RED BLOOD CELL COUNT(AUTO) 2.51 MIL/uL (4.5-6.0); WHITE BLOOD COUNT (AUTO) 9.4 K/uL (4.3-11.0)
[2021-03-31 04:50] LABS: CALCIUM, SERUM 8.2 mg/dL (8.5-10.1); CREATININE 1.8 mg/dL (0.6-1.3); MAGNESIUM 1.5 mg/dL (1.8-2.4); PHOSPHORUS 3.6 mg/dL (2.5-4.9); POTASSIUM 3.5 mmol/L (3.5-5.1)
[2021-03-31] MEDS ORDERED: VANCOMYCIN 500 MG in IV D5W 100 ML IV PRN (05:00)
[2021-03-31] MEDS: METOCLOPRAMIDE HCL 10 MG/2 ML VIAL IV SCH ×3 (05:04→16:36)
[2021-03-31] MEDS: BLOOD SUGAR DIAGNOSTIC 1 EACH STRIP IN SCH ×5 (06:00→17:07)
[2021-03-31] MEDS: ACETAMINOPHEN 325 MG TABLET PO PRN ×3 (06:36→22:09)
[2021-03-31] MEDS ORDERED: Magnesium 1GM/D5W 100ML PREMIX PIGGYBACK IV ONE (07:30)
--- NOTE | 2021-03-31 08:00 | NUR ---
RN OPENING NOTES RECEIVED PATIENT WITH TRACH TO VENT WITH SETTINGS AC 28 TV 550 FIO2 35% AND PEEP 0. SATURATION 99%. AT THIS TIME. NO RESP DISTRESS NOTED. SINUS RHYTHM ON MONITOR HR 99 AT THIS TIME. ABLE TO OPEN EYES BUT NOT FOLLOWING COMMAND. NO APPARENT DISTRESS. NO FACIAL COMPLAIN OF PAIN. PT DENIES PAIN. PT REMAINS WITH WITH LEFT NGTF @35 ML/HR INTACT AND PATENT IV SITE ON LENO PICC LINE WITH TPN @ 75 ML/HR RUNNING ORDERED. RIJ HD CATH WITH DRY AND CLEAN DRESSING. LV MIDLINE IN PLACE. KEPT PT CLEAN AND DRY AND PATIENT ON BARIMAXX MATTRESS. ISRAEL CATH DRAINING VIA GRAVITY, AURA IN COLOR. SAFETY MEASURES IN PLACE. HOB ELEVATED SIDE RAILS UP X2 BED LOCKED ALARM ON. WILL CONT TO MONITOR
[2021-03-31] MEDS: Magnesium 1GM/D5W 100ML PREMIX 100 ML IV SCH ×2 (08:19→10:16)
[2021-03-31] MEDS: PANTOPRAZOLE 40 MG VIAL IV SCH ×2 (10:16→22:03)
[2021-03-31] MEDS: MEROPENEM 1 G in IV NS 0.9% 100 ML IV SCH ×2 (10:29→22:02)
[2021-03-31] MEDS: MICAFUNGIN SODIUM 100 MG in IV NS 0.9% 100 ML IV SCH (12:29)
[2021-03-31] MEDS: INSULIN REGULAR, HUMAN 100 UNIT/ML 3 ML VIAL SQ PRN ×2 (12:37→17:34)
[2021-03-31] MEDS ORDERED: TPN BAG #28 IV SCH (15:30)
--- NOTE | 2021-03-31 20:02 | NUR ---
RN CLOSING NOTE NO SIGNIFICANT CHANGES IN PT CONDITION. TEMP WENT DOWN, AT THIS TIME 99.7. 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 FREQUENT ROUNDS ON PT THROUGHOUT SHIFT. TYLENOL GIVEN FOR TEMP OF 101.0. WOUND CARE BED BATH DONE. PT IS STABLE AT THIS TIME. REMAINS ON SAME VENT SETTINGS. NO RESP DISTRESS NOTED. NO S/S OF PAIN. GAVE UP DATE TO PT SISTER JAVAD. ALL NEEDS ATTENDED. TURNED REPOSITIONED PT Q2H. ORAL CARE DONE. NO BM NOTED. SAFETY MEASURES OBSERVED. ENDORSED CONTINUATION OF CARE TO LEXY MIDDLETON
[2021-03-31] MEDS ORDERED: VANCOMYCIN 1.25 GM in IV D5W 250 ML IV SCH (21:00)
[2021-03-31] MEDS: LORAZEPAM INJ 2 MG/ML VIAL IV PRN (22:04)
[2021-04-01] VITALS (38 sets, daily range): BP systolic 112–153; BP diastolic 48–81
[2021-04-01] MEDS: METOCLOPRAMIDE HCL 10 MG/2 ML VIAL IV SCH ×5 (00:13→23:31)
[2021-04-01] MEDS: BLOOD SUGAR DIAGNOSTIC 1 EACH STRIP IN SCH ×5 (00:13→23:36)
--- NOTE | 2021-04-01 01:17 | NUR ---
patient awake trach to vent ac 20, tv 550, fi02 35%, peep 5. sat 99%. patient has right upper picc line infusing tpn 74.18 hr. ns 20cc hour.. patient also has a right upper midline.patient has nepro infusing at 35 hour. via ngt. at 0000 residual 80cc turn off hour. patient has f/c 1800 dima urine out put. drsg was change 2200 was leaking green drain change drsg. incision site intact with dami green drainage moderate at umbiicus site.patient had large bowel movement lig. dark brown.patient is a DNR. SINUS TACH ON MONITOR. RIGHT IJ REMOVED YESTERDAY. BLOOD SUGAR 0000 121 no insulin given.pt temp midnite 99.9 given tylenol 650mg via ngt. and ativan 1mg ivp patient restless. given ativan 2204..no ditress noted.
[2021-04-01] MEDS: ACETAMINOPHEN 325 MG TABLET PO PRN ×3 (04:19→16:14)
[2021-04-01 04:28] LABS: BASOPHILS # (AUTO) 0.1 K/uL (0.0-0.2); BASOPHILS % (AUTO) 1.2 % (0.0-2.0); EOSINOPHILS % (AUTO) 3.3 % (0.0-6.0); HEMATOCRIT 21 % (39-51); HEMOGLOBIN 7.2 g/dL (13.5-17.5); LYMPHOCYTES # (AUTO) 1.1 K/uL (0.8-4.8); LYMPHOCYTES % (AUTO) 10.5 % (20.0-44.0); MEAN CORPUSCULAR HGB CONC 34 g/dl (31.0-36.0); MEAN CORPUSCULAR VOLUME 92 fL (80-96); MONOCYTES # (AUTO) 1.4 K/uL (0.1-1.30); MONOCYTES % (AUTO) 13.7 % (2.0-12.0); NEUTROPHILS # (AUTO) 7.4 K/uL (1.8-8.9); NEUTROPHILS % (AUTO) 71.3 % (43.0-81.0); PLATELET COUNT (AUTO) 254 K/uL (150-450); RED BLOOD CELL COUNT(AUTO) 2.34 MIL/uL (4.5-6.0); WHITE BLOOD COUNT (AUTO) 10.4 K/uL (4.3-11.0)
[2021-04-01 04:54] LABS: BILIRUBIN,TOTAL 1.7 mg/dL (0.2-1.0); CREATININE 1.7 mg/dL (0.6-1.3); MAGNESIUM 1.4 mg/dL (1.8-2.4); PHOSPHORUS 3.7 mg/dL (2.5-4.9); POTASSIUM 3.3 mmol/L (3.5-5.1); TOTAL PROTEIN, SERUM 7.2 g/dL (6.4-8.2)
[2021-04-01] MEDS ORDERED: TPN BAG #29 IV SCH ×2 (05:00→15:30)
[2021-04-01 05:16] LABS: ALBUMIN 1.4 g/dL (3.4-5.0)
--- NOTE | 2021-04-01 05:47 | NUR ---
blood sugar this a.m 119 no insulin given. albumin this a.m 1.4 to inform the
--- NOTE | 2021-04-01 07:30 | NUR ---
UNDERWEAR WELTER OPENING NOTES RECEIVED TRACH/VENT PT SEMIFOWLER'S IN BED, PT OPENS EYES SPONT AND ABLE TO TRACK, UNABLE TO RESPOND TO YES/NO QUESTIONS. PT ON VENT SETTINGS PER MD ORDER: PORTEX 6, AC 20, TV 500, FIO2 35%, PEEP 5, TOLERATING WELL, SPO2 99%, BREATHING UNLABORED AND EVEN. PT TEMP OF 101.4 F NOTED, TYLENOL DUE AT 1000, COOLING MEASURES IN PLACE. PT LENO PICC AND LV MIDLINE FLUSHED, AND INTACT, LENO PICC INFUSING TPN @ 74.18 ML/HR, AND TKO. PT LT NARE NG TUBE AUSCULTATED FOR POSITIVE PLACEMENT, FLUSHED AND PATENT, RECEIVING NEPRO 1.8@ 35ML/HR, 10cc RESIDUALS NOTED, TOLERATEING WELL. PT ABD INCISION/BRAYAN COVERED WITH C/D/I DRSG. ABD FOLD SKIN TEARS COVERED IN MEPILEX. SACRAL DTI COVERED IN MEPILEX. ISRAEL CATH DRAINING CLEAR AURA URINE VIA GRAVITY. BUE AND BLE EDEMA NOTED. ALL PT SAFETY PRECAUTIONS IN PLACE, WILL CONT TO MONITOR
--- NOTE | 2021-04-01 08:00 | NUR ---
RN NOTE DR RESENDIZ AWARE OF PT'S ALBUMIN 1.4, K+ 3.3, AND MG 1.4
[2021-04-01] MEDS: PANTOPRAZOLE 40 MG VIAL IV SCH ×2 (08:15→21:44)
[2021-04-01] MEDS: MEROPENEM 1 G in IV NS 0.9% 100 ML IV SCH (08:17)
[2021-04-01] MEDS ORDERED: POTASSIUM CHLORIDE 20 MEQ POWDER PACKET GT ONE (09:00)
[2021-04-01] MEDS: Magnesium 1GM/D5W 100ML PREMIX 100 ML IV SCH ×2 (10:16→11:21)
[2021-04-01] MEDS: NEPRO 1,000 ML BOTTLE GT PRN (13:22)
--- NOTE | 2021-04-01 14:00 | NUR ---
RN NOTE [employer] CALLED TWICE FOR COOLING MACHINE BUT DO NOT HAVE ONE AVAILABLE AT THIS MOMENT
[2021-04-01] MEDS: LORAZEPAM INJ 2 MG/ML VIAL IV PRN (15:29)
[2021-04-01] MEDS ORDERED: TPN BAG #30 IV SCH (18:00)
--- NOTE | 2021-04-01 18:33 | NUR ---
RN N OTE PT TRANSFERRED TO [facility] 114-1 IN STABLE CONDITION. I WILL RESUME CARE UNTIL END OF SHIFT
--- NOTE | 2021-04-01 18:43 | NUR ---
RN [facility] CLOSING NOTE MO CHANGES TO PT DURING SHIFT. PT ONSAME VENT SETTINGS PER MD ORDER. PT LOW GRADE FEVER OF 99.8 F CURRENTLY. TYLENOL GIVEN TWICE, LAST 1630, AND COOLING MEASURES CONT TO BE IN PLACE. PT ON TPN @ 74.18 ML/HR, NEPRO GTF DECREASED TO 20 ML/HR PER DIETARY RECOMMENDATION. ALL SAFETY PRECAUTIONS IN PLACE. WILL ENDORSE ANDREW TO ONCOMING RN
--- NOTE | 2021-04-01 19:17 | NUR ---
RN NOTE PT BELONGINGS LIST SHOWS: WATCH, $1 (1), $5 (1), $20 (5), 3 BRACELETS, 1 NECKLACE, 3 RINGS, WALLET, WHICH PT DOES NOT HAVE WITH HIS BELONGINGS CURRENTLY. IN PT'S POSSESSION CURRENTLY: BELT, PANTS, SHIRT, POCKET KNIFE (IN SAFE), 1 SOCK, AND VAPE. SPOKE WITH RN OCCUPATIONAL HEALTH SPECIALIST SHADIA AND SHE INSTRUCTED TO FAX HER THE PT'S BELONGINGS LIST WITH WHAT THE PT CURRENTLY HAS IN HIS POSSESSION AND THEY WILL INVESTIGATE. REEL FILM INSPECTOR RN AWARE OF SITUATION
--- NOTE | 2021-04-01 19:30 | NUR ---
RN OPENING NOTES: RECEIVED VENT PT IN BED RESTING COMFORTABLY. PATIENT IN NO S/SX OF ACUTE DISTRESS AT THIS TIME. NO SOB NOTED. PATIENT'S BREATHING IS EVEN AND UNLABORED. PATIENT ON MECHANICAL VENT; SETTINGS PRESCRIBED; PT TOLERATED WELL. AMBU BAG AT BED SIDE ALARMS SET PER PROTOCOL AND AUDIBLE. VENT PLUGGED IN TO RED OUTLET. PATIENT ON TELE MONITORING READING SINUS RHYTHM HR IS @80s AT THE TIME OF RECEIVED. PT HAS NGT ON L NARE SECURED AND INTACT; PLACEMENT VERIFIED THRU AUSCULTATION; RESIDUAL PRESENT @ TIME OF CHECKING ; 10CC. CONNECTED TO GTUBE FEEDING OF NEPRO @20CC/HR;TOLERATES WELL. NOTED IV SITE @ R UA MIDLINE #18 AND L UA PICC LINE ;BOTH PATENT, INTACT AND FLUSHING WELL; NO S/S OF INFECTION OR INFILTRATION. PT ALSO HAS ALL SECURED AND INTACT NO SIGNS OF INFECTION. WITH IV TPN RUNNING @74.18ML/HR. ISRAEL CATH IN PLACE, MODERATE URINE OUTPUT NOTED. SAFETY MEASURES HAVE BEEN PROVIDED AND IMPLEMENTED. PATIENT BED ALARM IS ON. HEAD OF BED ELEVATED. BED IS LOCKED, IN LOWEST POSITION AND SIDE RAILS UP. CALL LIGHT WITHIN REACH OF THE PATIENT. APPLICABLE ISOLATION PRECAUTIONS IN PLACE. WILL CONTINUE TO MONITOR AND REASSESS FOR ANY CHANGES AND WILL CARRY OUT ANY ONGOING AND ACTIVE MD ORDER.
--- NOTE | 2021-04-01 19:31 | NUR ---
RN NOTES RECEIVED PT WITH FOLLOWING BELONGINGS : BELT, PANTS, SHIRT, POCKET KNIFE (IN SAFE), 1 SOCK, AND VAPE. COUNTER VERIFIED WITH SPACE SCHEDULER. UPDATED PT BELONGINGS LIST AND SIGNED. BILLBOARD POSTER HELPER MADE AWARE.
--- NOTE | 2021-04-01 23:20 | NUR ---
RN NOTES NOTED PT PULLED OUT HIS L NARE NGT; TALENT MANAGEMENT SPECIALIST MADE AWARE. FACILITATED INSERTION AT L NARE; PLACEMENT VERIFIED THRU AUSCULTATION, RESIDUAL NOTED OF 5CC. LD PUGH WELL AWARE AND ELIZABETH FATIMA. SECURED ORDER FROM ELIZABETH FATIMA FOR STAT CXR. LD PUGH MADE AWARE. Addendum: 04/01/21 at 2358 by ELMER MARCIAL RN ADDENDUM [id number]; FEEDING ON HOLD AT THIS TIME . WILL RESUME ONCE CXR RESULT BAEZ COME OUT TO CONFIRM PLACEMENT.
[2021-04-01] MEDS: INSULIN REGULAR, HUMAN 100 UNIT/ML 3 ML VIAL SQ PRN (23:36)
[2021-04-02] VITALS (15 sets, daily range): BP systolic 106–147; BP diastolic 50–81
[2021-04-02] MEDS: ACETAMINOPHEN 650 MG/SUPP.RECT RC PRN (01:08)
--- NOTE | 2021-04-02 01:08 | NUR ---
RN NOTES NOTED PT'S TEMP IS AT 100.6@0000; PRN MEDICATION GIVEN AND COOLING MEASURES RENDERED. RUBBER PRESS TENDER MADE AWARE. WILL CONTINUE TO MONITOR AND ASSESS THROUGHOUT THE SHIFT.
--- NOTE | 2021-04-02 01:49 | NUR ---
RN NOTES CALLED RADIOLOGY DEPT; SPOKE WITH ALESIA , TRIED TO VERIFY FOR THE CXR RESULT/FINDINGS (Nasogastric tube in the stomach with the tip not visualized on the radiograph). ADVISED TO CALL MD @[phone] TO CONFIRM RESULT. (DR ONEAL) CALLED @[phone] SPOKE WITH CECILIA, LEFT MESSAGE FOR (DR. ONEAL) WHO READ THE CXR, REQUESTED FOR CALLBACK FOR CONFIRMATION OF RESULT. GOODWILL AMBASSADOR MADE AWARE. Addendum: 04/02/21 at 0204 by ELMER MARCIAL RN -CALLBACK FROM CECILIA, PER DR. ONEAL NGT IS GOOD PLACEMENT AND GOOD TO BE USED. PLACEMENT CONFIRMED. GOODWILL AMBASSADOR MADE AWARE. WILL RESUME FEEDING.
--- NOTE | 2021-04-02 01:49 | NUR ---
alex Addendum: 04/02/21 at 0149 by ELMER MARCIAL RN PLS DISREGARD NOTE
[2021-04-02] MEDS: METOCLOPRAMIDE HCL 10 MG/2 ML VIAL IV SCH ×4 (05:10→23:27)
[2021-04-02] MEDS: LORAZEPAM INJ 2 MG/ML VIAL IV PRN (05:11)
[2021-04-02] MEDS: BLOOD SUGAR DIAGNOSTIC 1 EACH STRIP IN SCH ×4 (05:17→23:44)
[2021-04-02] MEDS: INSULIN REGULAR, HUMAN 100 UNIT/ML 3 ML VIAL SQ PRN ×4 (05:17→23:44)
[2021-04-02 06:44] LABS: BASOPHILS # (AUTO) 0.1 K/uL (0.0-0.2); BASOPHILS % (AUTO) 1.1 % (0.0-2.0); EOSINOPHILS % (AUTO) 4.4 % (0.0-6.0); LYMPHOCYTES # (AUTO) 1.1 K/uL (0.8-4.8); LYMPHOCYTES % (AUTO) 11.6 % (20.0-44.0); MEAN CORPUSCULAR HGB CONC 33 g/dl (31.0-36.0); MEAN CORPUSCULAR VOLUME 92 fL (80-96); MONOCYTES # (AUTO) 1.1 K/uL (0.1-1.30); MONOCYTES % (AUTO) 11.3 % (2.0-12.0); NEUTROPHILS # (AUTO) 6.9 K/uL (1.8-8.9); NEUTROPHILS % (AUTO) 71.6 % (43.0-81.0); PLATELET COUNT (AUTO) 194 K/uL (150-450); WHITE BLOOD COUNT (AUTO) 9.6 K/uL (4.3-11.0)
[2021-04-02 06:53] LABS: HEMATOCRIT 20 % (39-51); HEMOGLOBIN 6.7 g/dL (13.5-17.5)
--- NOTE | 2021-04-02 06:54 | NUR ---
RN NOTES COMMUNICATED WITH ELIZABETH FATIMA AND INFORMED ABOUT CRITICAL LAB : HGB @6.7; AWAITING FOR ORDERS. COMBAT INFORMATION CENTER OFFICER MADE AWARE. WILL ENDORSE TO AM SHIFT RN AND COMBAT INFORMATION CENTER OFFICER FOR FOLLOW THROUGH.
--- NOTE | 2021-04-02 06:55 | NUR ---
RN NOTES RECEIVED CALL FROM ( TONEY- CAROL) CRITICAL LAB RESULT FOR HGB: 6.7). CANDY CUTTER MACHINE MADE AWARE. WILL ENDORSE TO AM SHIFT FOR FOLLOW THROUGH.
[2021-04-02 06:57] LABS: CALCIUM, SERUM 8.3 mg/dL (8.5-10.1); CREATININE 1.6 mg/dL (0.6-1.3); MAGNESIUM 1.4 mg/dL (1.8-2.4); PHOSPHORUS 3.3 mg/dL (2.5-4.9); POTASSIUM 3.1 mmol/L (3.5-5.1)
[2021-04-02] MEDS ORDERED: TPN BAG #31 IV SCH (07:00)
--- NOTE | 2021-04-02 07:02 | NUR ---
RN CLOSING NOTE: PATIENT REMAINS IN ROOM IN NO SIGNS OF RESPIRATORY DISTRESS, PATIENT STILL ON MECH VENT ; SETTINGS PRESCRIBED;TOLERATING WELL SATURATING @ >95% SP02. SAFETY MEASURES IMPLEMENTED, BED IN LOWEST POSITION, LOCKED, SIDE RAILS UP, CALL LIGHT WITHIN REACH. ALL NEEDS AND ORDERS ADDRESSED DURING THE SHIFT. IV ACCESS MAINTAINED INTACT, SECURED AND FLUSHING WELL. ALL DUE MEDS GIVEN ORDERED & SCHEDULED ; PATIENT TOLERATED WELL. PATIENT KEPT CLEAN AND COMFORTABLE WITHIN THE SHIFT. PATIENT ENDORSED TO INCOMING SHIFT RN WITH STABLE VITAL SIGN AND FOR CONTINUITY OF CARE.
--- NOTE | 2021-04-02 07:20 | NUR ---
RN OPENING NOTES RECEIVED PT IN BED. OPENS EYES. TOLERATING VENT SETTINGS WELL. NO SOB OR ANY S/SX OF ACUTE DISTRESS NOTED. ON TELE MONITORING READING SINUS RHYTHM. PT HAS NGT ON L NARE SECURED AND INTACT. PLACEMENT CHECKED THRU AUSCULTATION. TUBE FEEDING OF NEPRO @20CC/HR, TOLERATING WELL. IV ACCESS LV MIDLINE AND LENO PICC LINE BOTH INTACT, PATENT AND FLUSHING WELL. WITH IV TPN RUNNING @74.18ML/HR. ISRAEL CATH IN PLACE. SAFETY MEASURES IMPLEMENTED. CALL LIGHT WITHIN REACH. BED ALARM ON. HOB ELEVATED. BED LOCKED AND IN LOWEST POSITION WITH SIDE RAILS UP X3. WILL CONTINUE TO MONITOR.
[2021-04-02] MEDS: Magnesium 1GM/D5W 100ML PREMIX 100 ML IV SCH ×2 (08:19→09:21)
[2021-04-02] MEDS: PANTOPRAZOLE 40 MG VIAL IV SCH ×2 (08:20→20:23)
[2021-04-02 08:58] LABS: EOSINOPHILS % (MANUAL) 4 % (0-4); LYMPHOCYTES % (MANUAL) 11 % (16-48); MONOCYTES % (MANUAL) 4 % (0-11.0); NEUTROPHILS % (MANUAL) 81 (42-76)
[2021-04-02] MEDS ORDERED: POTASSIUM CHLORIDE 20 MEQ POWDER PACKET GT ONE ×2 (09:00)
[2021-04-02] MEDS: ACETAMINOPHEN 650 MG/20.3 ML UDC GT PRN (11:48)
--- NOTE | 2021-04-02 12:00 | NUR ---
RN NOTES BS OF 109, NO INSULIN COVERAGE.
--- NOTE | 2021-04-02 18:00 | NUR ---
RN NOTES BS OF 108, NO INSULIN COVERAGE.
--- NOTE | 2021-04-02 18:50 | NUR ---
RN CLOSING NOTES NO SIGNIFICANT CHANGES THROUGHOUT THE SHIFT. NO SOB OR ANY DISTRESS. NO PAIN REPORTED AT THIS TIME. 1 PRBC TRANSFUSED, NO TRANSFUSION REACTION NOTED. ALL DUE MEDS GIVEN. NEEDS ATTENDED. KEPT CLEAN AND COMFORTABLE. SAFETY MEASURES IN PLACE. WILL ENDORSE TO NIGHT RN FOR ANDREW.
--- NOTE | 2021-04-02 19:30 | NUR ---
RN OPENING NOTES: RECEIVED TRACH-VENT PT IN BED RESTING COMFORTABLY. PATIENT IN NO S/SX OF ACUTE DISTRESS AT THIS TIME. NO SOB NOTED. PATIENT'S BREATHING IS EVEN AND UNLABORED. PATIENT ON MECHANICAL VENT; SETTINGS PRESCRIBED; PT TOLERATED WELL. AMBU BAG AT BED SIDE ALARMS SET PER PROTOCOL AND AUDIBLE. VENT PLUGGED IN TO RED OUTLET. PATIENT ON TELE MONITORING READING SINUS RHYTHM HR IS @80s AT THE TIME OF RECEIVED. PT HAS NGT ON L NARE SECURED AND INTACT; PLACEMENT VERIFIED THRU AUSCULTATION. CONNECTED TO GTUBE FEEDING OF NEPRO @30CC/HR;TOLERATES WELL. NOTED IV SITE @ R UA MIDLINE #18 AND L UA PICC LINE ;BOTH PATENT, INTACT AND FLUSHING WELL; NO S/S OF INFECTION OR INFILTRATION. PT ALSO HAS ALL SECURED AND INTACT NO SIGNS OF INFECTION. WITH IV TPN RUNNING @74.18ML/HR. ISRAEL CATH IN PLACE, MODERATE URINE OUTPUT NOTED. ON SPECIALTY MATRESS. SAFETY MEASURES HAVE BEEN PROVIDED AND IMPLEMENTED. PATIENT BED ALARM IS ON. HEAD OF BED ELEVATED. BED IS LOCKED, IN LOWEST POSITION AND SIDE RAILS UP. CALL LIGHT WITHIN REACH OF THE PATIENT. APPLICABLE ISOLATION PRECAUTIONS IN PLACE. WILL CONTINUE TO MONITOR AND REASSESS FOR ANY CHANGES AND WILL CARRY OUT ANY ONGOING AND ACTIVE MD ORDER.
[2021-04-02] MEDS: HYDROMORPHONE 1 MG/1 ML DISP.SYRIN IV PRN (20:24)
[2021-04-02] MEDS ORDERED: TPN BAG #32 IV SCH (20:30)
--- NOTE | 2021-04-02 23:00 | NUR ---
RN NOTES NO NOTED CHANGES IN PATIENT CONDITION AT THIS TIME; PATIENT VITALS STABLE, NO SIGNS OF ACUTE RESPIRATORY DISTRESS.WELDING MANAGER MADE AWARE. WILL CONTINUE TO MONITOR AND REASSESS FOR ANY CHANGES THROUGHOUT THE SHIFT.
[2021-04-03] VITALS: BP 137/82
[2021-04-03] MEDS: LORAZEPAM INJ 2 MG/ML VIAL IV PRN (00:17)
[2021-04-03 04:00] VITALS: BP 150/84
--- NOTE | 2021-04-03 04:00 | NUR ---
RN NOTES NO NOTED CHANGES IN PATIENT CONDITION AT THIS TIME; PATIENT VITALS STABLE, NO SIGNS OF ACUTE RESPIRATORY DISTRESS. AM PATIENT CARE RENDERED. MUSIC ENGRAVER MADE AWARE. WILL CONTINUE TO MONITOR AND REASSESS FOR ANY CHANGES THROUGHOUT THE SHIFT.
[2021-04-03] MEDS: METOCLOPRAMIDE HCL 10 MG/2 ML VIAL IV SCH ×4 (05:08→23:23)
[2021-04-03] MEDS: BLOOD SUGAR DIAGNOSTIC 1 EACH STRIP IN SCH ×4 (05:13→23:57)
[2021-04-03] MEDS: INSULIN REGULAR, HUMAN 100 UNIT/ML 3 ML VIAL SQ PRN ×4 (05:13→23:58)
[2021-04-03] MEDS: NEPRO 1,000 ML BOTTLE GT PRN (06:35)
[2021-04-03 07:15] LABS: BASOPHILS # (AUTO) 0.1 K/uL (0.0-0.2); HEMATOCRIT 25 % (39-51); LYMPHOCYTES # (AUTO) 1.3 K/uL (0.8-4.8); LYMPHOCYTES % (AUTO) 11.9 % (20.0-44.0); MEAN CORPUSCULAR HGB CONC 32 g/dl (31.0-36.0); MEAN CORPUSCULAR VOLUME 91 fL (80-96); MONOCYTES # (AUTO) 1.1 K/uL (0.1-1.30); NEUTROPHILS # (AUTO) 7.6 K/uL (1.8-8.9); NEUTROPHILS % (AUTO) 72.1 % (43.0-81.0); PLATELET COUNT (AUTO) 129 K/uL (150-450); RED BLOOD CELL COUNT(AUTO) 2.72 MIL/uL (4.5-6.0); WHITE BLOOD COUNT (AUTO) 10.6 K/uL (4.3-11.0)
--- NOTE | 2021-04-03 07:25 | NUR ---
RN OPENING NOTES RECEIVED PT IN BED. OPENS EYES. TOLERATING VENT SETTINGS WELL. NO SOB OR ANY S/SX OF ACUTE DISTRESS NOTED. ON TELE MONITORING READING SINUS RHYTHM. PT HAS NGT ON L NARE SECURED AND INTACT. PLACEMENT CHECKED THRU AUSCULTATION. TUBE FEEDING OF NEPRO @50CC/HR, TOLERATING WELL. IV ACCESS LV MIDLINE AND LENO PICC LINE BOTH INTACT, PATENT AND FLUSHING WELL. WITH IV TPN RUNNING @74.18ML/HR. ISRAEL CATH IN PLACE. SAFETY MEASURES IMPLEMENTED. CALL LIGHT WITHIN REACH. BED ALARM ON. HOB ELEVATED. BED LOCKED AND IN LOWEST POSITION WITH SIDE RAILS UP X3. WILL CONTINUE TO MONITOR.
[2021-04-03 07:45] LABS: CALCIUM, SERUM 8.5 mg/dL (8.5-10.1); CREATININE 1.4 mg/dL (0.6-1.3); MAGNESIUM 1.5 mg/dL (1.8-2.4); PHOSPHORUS 3.4 mg/dL (2.5-4.9); POTASSIUM 3.3 mmol/L (3.5-5.1)
[2021-04-03 08:00] VITALS: BP 137/62
[2021-04-03] MEDS: PANTOPRAZOLE 40 MG VIAL IV SCH ×2 (08:21→22:30)
[2021-04-03] MEDS: POTASSIUM CHLORIDE 20 MEQ POWDER PACKET GT SCH (08:21)
[2021-04-03] MEDS: Magnesium 1GM/D5W 100ML PREMIX 100 ML IV SCH ×2 (09:36→11:03)
[2021-04-03] MEDS ORDERED: TPN BAG #33 IV SCH (09:50)
[2021-04-03 12:00] VITALS: BP 145/65
[2021-04-03] MEDS ORDERED: TPN/PPN PER PHARMACY IV PRN (13:01)
[2021-04-03] MEDS ORDERED: EPOETIN ALFA (10,000 UNIT) 10,000 UNIT/ML VIAL SQ ONE (15:00)
[2021-04-03] MEDS ORDERED: EPOETIN ALFA-EPBX 10,000 UNIT/ML VIAL SQ ONE (15:00)
[2021-04-03 16:00] VITALS: BP 115/56
--- NOTE | 2021-04-03 19:04 | NUR ---
RN CLOSING NOTES NO SIGNIFICANT CHANGES THROUGHOUT THE SHIFT. NO SOB OR ANY DISTRESS. NO PAIN REPORTED AT THIS TIME. ALL DUE MEDS GIVEN. NEEDS ATTENDED. KEPT CLEAN AND COMFORTABLE. SAFETY MEASURES IN PLACE. WILL ENDORSE TO NIGHT RN FOR ANDREW.
[2021-04-03 20:00] VITALS: BP 127/62
--- NOTE | 2021-04-03 20:00 | NUR ---
RN NOTE RECEIVED PT IN BED, ALERT, ON MECHVENT, TOLERATING SETTINGS, NOT IN ANY DISTRESS. SR ON TELE MONITOR WITH HR OF 94. PT DENIES ANY PAIN. NGT PATENT AND IN PLACE, AUSCULTATED FOR PLACEMENT CHECK. GT FEEDING AT 60MLS/HR WITH MINIMAL RESIDUALS. PT ON TPN, PICC LINE PATENT AND INTACT, TPN RATE DECREASED TO 40CC/HR PER ORDER. PT WITH BILATERAL WRIST RESTRAINTS, WITH GOOD CIRCULATION. ISRAEL IN PLACE, DRAINING WELL. ALL SAFETY IN PLACE. WILL CONTINUE TO MONITOR.
[2021-04-03] MEDS ORDERED: TPN BAG #34 IV SCH (23:10)
[2021-04-04] VITALS: BP 137/61
[2021-04-04] MEDS: NEPRO 1,000 ML BOTTLE GT PRN (03:47)
[2021-04-04 04:00] VITALS: BP 135/66
[2021-04-04] MEDS: LORAZEPAM INJ 2 MG/ML VIAL IV PRN ×2 (05:31→12:20)
--- NOTE | 2021-04-04 05:31 | NUR ---
rn note pt trying to get out from bed, banging the side rails. tried to calm pt, tried multiple times. released with restraints for seconds, pt pulling out ngtube. ativan given.
[2021-04-04] MEDS: METOCLOPRAMIDE HCL 10 MG/2 ML VIAL IV SCH ×4 (05:56→23:07)
--- NOTE | 2021-04-04 05:58 | NUR ---
PATIENT RECEIVED ON TRACH TO VENT WITH SETTINGS OF AC 20, 500 Vt, 40%, +5. SUCTIONED FOR MINIMAL, THIN, WHITE SECRETIONS. AMBU BAG AT BEDSIDE. VENT ALARM AUDIBLE AND VISIBLE. Addendum: 04/04/21 at 0600 by MAYUR MCALLISTER RT Amended: Links added.
[2021-04-04] MEDS: BLOOD SUGAR DIAGNOSTIC 1 EACH STRIP IN SCH ×4 (06:12→23:19)
[2021-04-04] MEDS: INSULIN REGULAR, HUMAN 100 UNIT/ML 3 ML VIAL SQ PRN ×2 (06:13→23:20)
--- NOTE | 2021-04-04 07:00 | NUR ---
RN NOTE PT CALM IN BED NOW, NOT IN ANY DISTRESS. CONTINUE ON VENT SETTINGS. MIDLINE ON LV, PT COMPLAINS OF PAIN ON IV SITE WHILE FLUSHING, REMOVED. NO SIGNS OF INFECTION NOTED. PICC LINE PATENT AND INTACT. NGT REMAIN IN PLACE. GT FEEDING TOLERATING WELL. ALL SAFETY MAINTAINED. ENDORSED TO NEXT SHIFT NURSE FOR ANDREW.
--- NOTE | 2021-04-04 07:10 | NUR ---
RN NOTE RECEIVED PT ON BED, ALERT, VENT/ TRACH DEPENDENT ,TOLERATING VENT SETTING WELL, NOT IN ANY DISTRESS. SR ON TELE, HR IN 90'S .NO DISTRESS NOTED, NGT PATENT AND IN PLACE, AUSCULTATED FOR PLACEMENT CHECK. NGT FEEDING AT 60MLS/HR WITH MINIMAL RESIDUALS. PICC LINE PATENT AND INTACT, PT WITH BILATERAL WRIST RESTRAINTS, WITH GOOD CIRCULATION. ISRAEL IN PLACE, DRAINING WELL. ALL SAFETY IN PLACE. WILL CONTINUE TO MONITOR.
[2021-04-04 07:21] LABS: BASOPHILS # (AUTO) 0.2 K/uL (0.0-0.2); BASOPHILS % (AUTO) 1.4 % (0.0-2.0); EOSINOPHILS % (AUTO) 4.1 % (0.0-6.0); HEMATOCRIT 26 % (39-51); HEMOGLOBIN 8.5 g/dL (13.5-17.5); LYMPHOCYTES # (AUTO) 1.7 K/uL (0.8-4.8); LYMPHOCYTES % (AUTO) 14.8 % (20.0-44.0); MEAN CORPUSCULAR HGB CONC 32 g/dl (31.0-36.0); MEAN CORPUSCULAR VOLUME 90 fL (80-96); MONOCYTES # (AUTO) 1.2 K/uL (0.1-1.30); MONOCYTES % (AUTO) 10.3 % (2.0-12.0); NEUTROPHILS # (AUTO) 7.8 K/uL (1.8-8.9); NEUTROPHILS % (AUTO) 69.4 % (43.0-81.0); PLATELET COUNT (AUTO) 369 K/uL (150-450); WHITE BLOOD COUNT (AUTO) 11.3 K/uL (4.3-11.0)
[2021-04-04 07:48] LABS: ALBUMIN 1.7 g/dL (3.4-5.0); BILIRUBIN,TOTAL 1.4 mg/dL (0.2-1.0); CALCIUM, SERUM 8.8 mg/dL (8.5-10.1); CREATININE 1.4 mg/dL (0.6-1.3); MAGNESIUM 1.6 mg/dL (1.8-2.4); POTASSIUM 3.4 mmol/L (3.5-5.1); TOTAL PROTEIN, SERUM 8.4 g/dL (6.4-8.2)
[2021-04-04 08:00] VITALS: BP 122/68
--- NOTE | 2021-04-04 08:00 | NUR ---
RN NOTES PT IS RESTLESS AND TRYING TO GET OUT OF BED, SLICK. WRIST RESTRAINS ON FOR PT SAFETY . CONTINUE TO MONITOR .
[2021-04-04] MEDS: PANTOPRAZOLE 40 MG VIAL IV SCH ×2 (08:42→20:46)
[2021-04-04] MEDS: POTASSIUM CHLORIDE 20 MEQ POWDER PACKET GT SCH (08:42)
[2021-04-04] MEDS: Magnesium 1GM/D5W 100ML PREMIX 100 ML IV SCH ×2 (09:41→11:01)
[2021-04-04 12:00] VITALS: BP 128/64
[2021-04-04] MEDS ORDERED: ALTEPLASE CATHFLO 2 MG/VIAL XX ONE (12:00)
--- NOTE | 2021-04-04 14:00 | NUR ---
RN NOTES UNABLE TO FLUSH TWO PORTS OF PICC LINE , MD NOTIFED, ORDER RECEIVED FOR ALTEPLASE .
[2021-04-04] MEDS ORDERED: ALTEPLASE 100 MG/VIAL VIAL IV ONE (15:00)
[2021-04-04 16:00] VITALS: BP 116/58
[2021-04-04] MEDS: PROSOURCE / PROSTAT (PYXIS) 30 ML UDC GT SCH (16:39)
--- NOTE | 2021-04-04 18:54 | NUR ---
RN NOTES NO SIGNIFICANT CHANGES NOTED ON THIS SHIFT, TRACH SUCTIONING AND CARE DONE NEEDED, ISRAEL DRAINING TO GRAVITY, NGT TUBE PLACEMENT VERIFICATION DONE, ABLE TO FLUSH ALL THREE PORTS OF THE LEFT ARM PICC LINE AT THIS TIME, TF AT 50CC/HR RUNNING VIA NGT, PT IS TOLERATING WELL , NO RESIDUAL NOTED, SR UP x3, CALL LIGHT WITHIN EASY REACH, BED LOCKED AND IN LOWEST POSITION, WILL ENDOSE TO DRAMATIC COACH NURSE FOR CONTINUITY OF CARE .
--- NOTE | 2021-04-04 19:00 | NUR ---
RN NOTE RECEIVED PATIENT IN BED RESTING ALERT ORIENTED X1-2 ON MECHANICAL VENT, SETTING TRACH SHILEY TV 550 AC 20 FIO2:35% O2:100,ON NGT CHECKED PLACEMENT IN PLACE NO RESIDUAL ON NEPRO 1.8 50 CC/HR,ISRAEL CATHETER IN PLACE URINE DRAINING YELLOW AND CLEAR BY GRAVITY,IV SITE IS ON LEFT UPPER ARM PICC LINE INTACT PATENT,HEAD OF THE BED ELEVATED, SAFETY MEASURE IMPLEMENT BED IN LOW POSITON AND LOCKED, SOFT BILATERAL RESTRAIN IN PLACE CHECK FOR SAFETY AND BLOOD CIRCULATION EVERY 2 HOURS,CONTINUE TO MONITOR.
[2021-04-04 20:00] VITALS: BP 122/54
[2021-04-04] MEDS: ACETAMINOPHEN 650 MG/20.3 ML UDC GT PRN (20:55)
--- NOTE | 2021-04-04 21:01 | NUR ---
RN NOTE ACETAMINOPHEN 650 MG PRN GIVEN FOR TEMPERATURE 100.3 CONTINUE TO MONITOR
[2021-04-05] VITALS: BP 116/75
--- NOTE | 2021-04-05 00:12 | NUR ---
RN NOTE TEMPERATURE IS 99.1 CONTINUE TO MONITOR
[2021-04-05] MEDS: LORAZEPAM INJ 2 MG/ML VIAL IV PRN ×3 (01:58→23:55)
[2021-04-05 04:00] VITALS: BP 142/50
[2021-04-05] MEDS: IV NS 0.9% 250 ML IV PRN (04:20)
[2021-04-05] MEDS: METOCLOPRAMIDE HCL 10 MG/2 ML VIAL IV SCH ×4 (05:20→23:49)
[2021-04-05] MEDS: BLOOD SUGAR DIAGNOSTIC 1 EACH STRIP IN SCH ×4 (05:51→23:47)
--- NOTE | 2021-04-05 07:10 | NUR ---
RN NOTE RECEIVED PT ON BED, ALERT, FOLLOW SIMPLE COMMAND, VENT/ TRACH DEPENDENT ,TOLERATING VENT SETTING WELL, NOT IN ANY DISTRESS. ST ON TELE, HR IN 120'S . T= 101.6 AT THIS TIME, COOLING MEASURES INPLACED, NGT PATENT AND IN PLACE, AUSCULTATED FOR PLACEMENT CHECK. NGT FEEDING AT 50MLS/HR WITH MINIMAL RESIDUALS. PICC LINE PATENT AND INTACT, PT WITH BILATERAL WRIST RESTRAINTS, WITH GOOD CIRCULATION. ISRAEL IN PLACE, DRAINING WELL. ALL SAFETY IN PLACE. WILL CONTINUE TO MONITOR.
[2021-04-05] MEDS: ACETAMINOPHEN 650 MG/20.3 ML UDC GT PRN ×3 (07:17→21:19)
--- NOTE | 2021-04-05 07:28 | NUR ---
RN NOTE PATIENT REMAINS ON ALERT ORIENTED X1 NO SOB NOT ACUTE DISTRESS NOTED ENDORSE NEXT COMING SHIFT FOR CONTINUATION OF CARE
[2021-04-05 07:35] LABS: BASOPHILS # (AUTO) 0.1 K/uL (0.0-0.2); BASOPHILS % (AUTO) 1.2 % (0.0-2.0); EOSINOPHILS % (AUTO) 2.9 % (0.0-6.0); HEMATOCRIT 25 % (39-51); HEMOGLOBIN 8.1 g/dL (13.5-17.5); LYMPHOCYTES # (AUTO) 1.3 K/uL (0.8-4.8); LYMPHOCYTES % (AUTO) 10.4 % (20.0-44.0); MEAN CORPUSCULAR HGB CONC 33 g/dl (31.0-36.0); MEAN CORPUSCULAR VOLUME 90 fL (80-96); MONOCYTES % (AUTO) 8.5 % (2.0-12.0); NEUTROPHILS # (AUTO) 9.5 K/uL (1.8-8.9); PLATELET COUNT (AUTO) 322 K/uL (150-450); RED BLOOD CELL COUNT(AUTO) 2.76 MIL/uL (4.5-6.0); WHITE BLOOD COUNT (AUTO) 12.3 K/uL (4.3-11.0)
[2021-04-05 07:43] LABS: ALBUMIN 1.9 g/dL (3.4-5.0); BILIRUBIN,TOTAL 1.3 mg/dL (0.2-1.0); CREATININE 1.5 mg/dL (0.6-1.3); MAGNESIUM 1.5 mg/dL (1.8-2.4); PHOSPHORUS 4.2 mg/dL (2.5-4.9); POTASSIUM 4.1 mmol/L (3.5-5.1); TOTAL PROTEIN, SERUM 8.6 g/dL (6.4-8.2)
[2021-04-05 08:00] VITALS: BP 116/47
[2021-04-05] MEDS: POTASSIUM CHLORIDE 20 MEQ POWDER PACKET GT SCH (08:18)
[2021-04-05] MEDS: PANTOPRAZOLE 40 MG VIAL IV SCH ×2 (08:18→20:02)
[2021-04-05] MEDS: PROSOURCE / PROSTAT (PYXIS) 30 ML UDC GT SCH ×2 (08:18→17:08)
[2021-04-05] MEDS ORDERED: Magnesium 1GM/D5W 100ML PREMIX 100 ML IV SCH (09:30)
[2021-04-05] MEDS: NEPRO 1,000 ML BOTTLE GT PRN (09:58)
--- NOTE | 2021-04-05 10:14 | NUR ---
LEXY NOTES alternate skin dami removed per md order . Addendum: 04/05/21 at 1844 by PALOMO RIDDLE RN Alternate abdomen skin dami removed per md order
[2021-04-05] MEDS ORDERED: MEROPENEM 500 MG in IV NS 0.9% 50 ML IV SCH (10:30)
[2021-04-05 12:00] VITALS: BP 102/71
[2021-04-05] MEDS: FLUCONAZOLE (100 MG) 100 MG TABLET PO SCH (12:24)
[2021-04-05] MEDS: VANCOMYCIN 1.25 GM in IV D5W 250 ML IV SCH (12:30)
[2021-04-05] MEDS: MEROPENEM 1 G in IV NS 0.9% 100 ML IV SCH ×2 (13:37→20:02)
[2021-04-05 16:00] VITALS: BP 93/47
--- NOTE | 2021-04-05 18:45 | NUR ---
RN NOTES NO SIGNIFICANT CHANGES NOTED ON THIS SHIFT, T=99.6 AXILLARY AT THIS TIME, WILL ENDOSE TO VIDEO PHOTOGRAPHER FOR CONTINUITY OF CARE.
--- NOTE | 2021-04-05 19:10 | NUR ---
RN NOTE RECEIVED PATIENT IN BED RESTING ALERT ORIENTED X1 ON MECHANICAL VENT,IV SITE IS ON LEFT UPPER ARM PICC LINE INTACT PATENT ON NGT FEEDING NEPHRO 1.8 50CC/HR CHECKED PLACEMENT IN PLACE,NO RESIDUAL NOTED, ISRAEL CATHETER IN PLACE URINE DRAINING YELLOW AND CLEAR BY GRAVITY HEAD OF THE BED ELEVATED,BILATERAL SOFT RESTRAIN IN PLACE,WILL CHECK EVERY 2 HOURS FOR REPOSITION AND BLOOD CIRCULATION BED IN LOW POSITION AND LOCKED,CONTINUE TO MONITOR.
[2021-04-05 20:00] VITALS: BP 122/64
--- NOTE | 2021-04-05 21:00 | NUR ---
RN NOTE TEMPERATURE IS 100.1 ACETAMINOPHEN 650 MG PRN,CONTINUE TO MONITOR
--- NOTE | 2021-04-05 22:30 | NUR ---
RN NOTE PATIENT REMOVED HIS NGT NOTIFIED DR JOHNSON HE ORDERED REINSERT IT NOTED AND CARRIED OUT.
--- NOTE | 2021-04-05 23:50 | NUR ---
RN NOTE NOT ABLE TO INSERT NGT DUE TO PATIENT NOT FOLLOW DIRECTION NOTIFIED DR JOHNSON,HE SAID ON CONTINUE TO MONITOR.
[2021-04-06] VITALS (7 sets, daily range): BP systolic 116–131; BP diastolic 63–77
[2021-04-06] MEDS: INSULIN REGULAR, HUMAN 100 UNIT/ML 3 ML VIAL SQ PRN (00:06)
--- NOTE | 2021-04-06 00:35 | NUR ---
RN NOTE REPORT GIVEN TO ZAYNAB PUGH FOR CONTINUATION OF CARE
--- NOTE | 2021-04-06 00:40 | NUR ---
ANIMAL ATTENDANTS AND TRAINERS NOTES RECEIVED REPORT FROM NICANOR RN PT IN STABLE CONDITION WILL CONTINUE TO MONITOR.
[2021-04-06] MEDS: MEROPENEM 1 G in IV NS 0.9% 100 ML IV SCH ×3 (04:23→20:53)
[2021-04-06] MEDS: BLOOD SUGAR DIAGNOSTIC 1 EACH STRIP IN SCH ×3 (05:28→18:41)
[2021-04-06] MEDS: METOCLOPRAMIDE HCL 10 MG/2 ML VIAL IV SCH ×3 (05:29→18:42)
[2021-04-06] MEDS: VANCOMYCIN 1.25 GM in IV D5W 250 ML IV SCH (05:32)
--- NOTE | 2021-04-06 06:41 | NUR ---
BOOKING PRIZER NOTES RECEIVED PRELIMINARY REPORT FOR BLOOD CULTURE GRAM STAIN POSITIVE COCCI IN PAIRS. CALLED MD AWAITING RESPONSE.
[2021-04-06 06:45] LABS: BASOPHILS # (AUTO) 0.1 K/uL (0.0-0.2); BASOPHILS % (AUTO) 1.4 % (0.0-2.0); EOSINOPHILS % (AUTO) 2.2 % (0.0-6.0); HEMATOCRIT 23 % (39-51); HEMOGLOBIN 7.6 g/dL (13.5-17.5); LYMPHOCYTES # (AUTO) 0.9 K/uL (0.8-4.8); LYMPHOCYTES % (AUTO) 12.3 % (20.0-44.0); MEAN CORPUSCULAR HGB CONC 33 g/dl (31.0-36.0); MEAN CORPUSCULAR VOLUME 90 fL (80-96); MONOCYTES # (AUTO) 0.9 K/uL (0.1-1.30); MONOCYTES % (AUTO) 11.7 % (2.0-12.0); NEUTROPHILS # (AUTO) 5.4 K/uL (1.8-8.9); NEUTROPHILS % (AUTO) 72.4 % (43.0-81.0); PLATELET COUNT (AUTO) 281 K/uL (150-450); RED BLOOD CELL COUNT(AUTO) 2.56 MIL/uL (4.5-6.0); WHITE BLOOD COUNT (AUTO) 7.5 K/uL (4.3-11.0)
[2021-04-06 06:46] LABS: ALBUMIN 1.8 g/dL (3.4-5.0); BILIRUBIN,TOTAL 1.1 mg/dL (0.2-1.0); CALCIUM, SERUM 8.4 mg/dL (8.5-10.1); CREATININE 1.6 mg/dL (0.6-1.3); MAGNESIUM 1.5 mg/dL (1.8-2.4); POTASSIUM 3.8 mmol/L (3.5-5.1); TOTAL PROTEIN, SERUM 8.3 g/dL (6.4-8.2)
--- NOTE | 2021-04-06 07:40 | NUR ---
AEROSOL SUPERVISOR NOTES PATIENT IN BED RESTING ALERT ORIENTED X1 ON MECHANICAL VENT,IV SITE IS ON LEFT UPPER ARM PICC LINE INTACT PATENT ON NGT FEEDING NEPHRO 1.8 50CC/HR CHECKED PLACEMENT IN PLACE,NO RESIDUAL NOTED, ISRAEL CATHETER IN PLACE URINE DRAINING YELLOW AND CLEAR BY GRAVITY HEAD OF THE BED ELEVATED,BILATERAL SOFT RESTRAIN IN PLACE,WILL CHECK EVERY 2 HOURS FOR REPOSITION AND BLOOD CIRCULATION BED IN LOW POSITION AND LOCKED WILL ENDORSE CARE
[2021-04-06] MEDS: PROSOURCE / PROSTAT (PYXIS) 30 ML UDC GT SCH ×2 (08:37→16:14)
[2021-04-06] MEDS: POTASSIUM CHLORIDE 20 MEQ POWDER PACKET GT SCH (08:37)
[2021-04-06] MEDS: PANTOPRAZOLE 40 MG VIAL IV SCH ×2 (08:38→20:53)
[2021-04-06] MEDS: Magnesium 1GM/D5W 100ML PREMIX 100 ML IV SCH ×2 (10:01→11:39)
[2021-04-06] MEDS: FLUCONAZOLE (100 MG) 100 MG TABLET PO SCH (11:39)
--- NOTE | 2021-04-06 12:48 | NUR ---
icu unable to place peripheral iv,md made aware,will place midline,nursing sup made aware.
--- NOTE | 2021-04-06 15:47 | NUR ---
MYESHA GABRIEL NOTIFIED UNABLE TO REACH NEXT OF KIN,MD NEED TO DOCUMENT NECESSITY OF PROCEDURE.WILL FOLLOW UP CM AWARE.
--- NOTE | 2021-04-06 16:51 | NUR ---
CONSENT OBTAINED FROM SISTER FOR PEG,DR. AVILA NOTIFIED C/O AALIYAH.WILL ENDORSED TO DERRICK PUGH.
--- NOTE | 2021-04-06 19:30 | NUR ---
RN NOTE RECEIVED PATIENT IN BED, AO X 2-3, IN NO S/SX OF ACUTE DISTRESS AT THIS TIME. ON TRACH TO MECHANICAL VENT WITH SETTINGS PRESCRIBED, SATURATION AT 100%, SR ON THE MONITOR, HR IS 92. NOTED LV MIDLINE, HUBS PATENT AND FLUSHING WELL, NO S/S OF INFECTION. SOFT WRIST RESTRAINTS NOTED ON B WRISTS PER MD ORDER, SKIN AND CIRCULATION WAS CHECKED. SAFETY MEASURES IMPLEMENTED. PATIENT BED ALARM IS ON. HEAD OF BED ELEVATED. BED IS LOCKED, IN LOWEST POSITION AND SIDE RAILS UP. CALL LIGHT WITHIN REACH OF THE PATIENT. WILL CONTINUE TO MONITOR AND REASSESS FOR ANY CHANGES.
[2021-04-06] MEDS: LORAZEPAM INJ 2 MG/ML VIAL IV PRN (19:59)
[2021-04-07] VITALS (7 sets, daily range): BP systolic 116–132; BP diastolic 58–86
[2021-04-07] MEDS: BLOOD SUGAR DIAGNOSTIC 1 EACH STRIP IN SCH ×5 (00:31→23:08)
[2021-04-07] MEDS: METOCLOPRAMIDE HCL 10 MG/2 ML VIAL IV SCH ×5 (00:31→23:08)
[2021-04-07] MEDS: VANCOMYCIN 1.25 GM in IV D5W 250 ML IV SCH (00:31)
[2021-04-07] MEDS: MEROPENEM 1 G in IV NS 0.9% 100 ML IV SCH ×3 (04:44→20:55)
[2021-04-07 07:08] LABS: BASOPHILS # (AUTO) 0.1 K/uL (0.0-0.2); BASOPHILS % (AUTO) 1.1 % (0.0-2.0); EOSINOPHILS % (AUTO) 3.2 % (0.0-6.0); HEMATOCRIT 24 % (39-51); LYMPHOCYTES # (AUTO) 1.1 K/uL (0.8-4.8); LYMPHOCYTES % (AUTO) 11.4 % (20.0-44.0); MEAN CORPUSCULAR HGB CONC 33 g/dl (31.0-36.0); MEAN CORPUSCULAR VOLUME 91 fL (80-96); MONOCYTES # (AUTO) 1.2 K/uL (0.1-1.30); MONOCYTES % (AUTO) 12.2 % (2.0-12.0); NEUTROPHILS # (AUTO) 6.9 K/uL (1.8-8.9); NEUTROPHILS % (AUTO) 72.1 % (43.0-81.0); PLATELET COUNT (AUTO) 410 K/uL (150-450); RED BLOOD CELL COUNT(AUTO) 2.64 MIL/uL (4.5-6.0); WHITE BLOOD COUNT (AUTO) 9.6 K/uL (4.3-11.0)
[2021-04-07 07:35] LABS: D-DIMER 14.38 mg/L(FEU (0.17-0.50)
--- NOTE | 2021-04-07 07:53 | NUR ---
RN OPENING NOTES RECEIVED PATIENT IN BED IN SUPINE POSITION. AO X 1/2. IN NO S/SX OF PAIN OR DISTRESS NOTED. PT ABLE TO SHOW RN IF HE HAS PAIN AND LOCATION. ON TRACH TO MECHANICAL VENT WITH SATURATION AT 100%, SR ON THE MONITOR. PT HAS LV MIDLINE, PATENT, INTACT AND FLUSHING WELL. SOFT WRIST RESTRAINTS NOTED ON B WRISTS PER MD ORDER, SKIN AND CIRCULATION WAS CHECKED. SPATIENT BED ALARM IS ON. HEAD OF BED ELEVATED. BED IS LOCKED, IN LOWEST POSITION AND SIDE RAILS UP. CALL LIGHT WITHIN REACH OF THE PATIENT. WILL CONTINUE TO MONITOR.
[2021-04-07 07:55] LABS: BILIRUBIN,TOTAL 1.2 mg/dL (0.2-1.0); CREATININE 1.7 mg/dL (0.6-1.3); MAGNESIUM 1.9 mg/dL (1.8-2.4); PHOSPHORUS 3.9 mg/dL (2.5-4.9); POTASSIUM 3.7 mmol/L (3.5-5.1); TOTAL PROTEIN, SERUM 8.9 g/dL (6.4-8.2)
[2021-04-07] MEDS: PANTOPRAZOLE 40 MG VIAL IV SCH ×2 (08:46→20:55)
[2021-04-07] MEDS: PROSOURCE / PROSTAT (PYXIS) 30 ML UDC GT SCH ×2 (08:51→16:25)
[2021-04-07] MEDS: POTASSIUM CHLORIDE 20 MEQ POWDER PACKET GT SCH (08:51)
[2021-04-07] MEDS: LORAZEPAM INJ 2 MG/ML VIAL IV PRN (10:34)
[2021-04-07] MEDS: FLUCONAZOLE (100 MG) 100 MG TABLET PO SCH ×2 (12:00→12:12)
[2021-04-07] MEDS ORDERED: MIDAZOLAM HCL 2 MG/2ML VIAL ONE ×2 (14:52→15:07)
[2021-04-07] MEDS ORDERED: ROCURONIUM BROMIDE 50 MG/5 ML ONE (15:07)
--- NOTE | 2021-04-07 15:43 | NUR ---
PT SISTER JAVAD REEVES CALLED FROM [place]. HER NUMBER IS [phone]. RN UPDATED SISTER ON PT STATUS. PT HAD A PEG TUBE PLACED. PT VITAL SIGNS ARE WNL. ACCOUNTANT COSTLEXY ANTON IS CONTINUALLY MONITORING PT.
--- NOTE | 2021-04-07 18:33 | NUR ---
RN CLOSING NOTES; PT RESTING IN SUPINE POSITION. PT A/OX2, PT KEEPS GETTING OUT OF BED. PT HAS SOFT WRIST RESTRAINTS. SKIN CHECKS ON WRIST DONE AND INTACT. PT HAD PROCEDURE DONE, PEG TUBE PLACEMENT. PT HAS HAD NO C/O PAIN. PT CLEANED, DRY, WITH CALL LIGHT WITHIN REACH. ENDORSED TO NIGHTSHIFT RN.
[2021-04-07] MEDS: VANCOMYCIN 1 GM in IV D5W 250 ML IV SCH (23:08)
[2021-04-07] MEDS: INSULIN REGULAR, HUMAN 100 UNIT/ML 3 ML VIAL SQ PRN (23:17)
[2021-04-08] VITALS: BP 123/70
[2021-04-08] MEDS: LORAZEPAM INJ 2 MG/ML VIAL IV PRN ×3 (01:09→13:39)
[2021-04-08 04:00] VITALS: BP 114/63
[2021-04-08] MEDS: METOCLOPRAMIDE HCL 10 MG/2 ML VIAL IV SCH ×4 (04:59→23:23)
[2021-04-08] MEDS: MEROPENEM 1 G in IV NS 0.9% 100 ML IV SCH (04:59)
[2021-04-08] MEDS: BLOOD SUGAR DIAGNOSTIC 1 EACH STRIP IN SCH ×4 (05:00→23:49)
--- NOTE | 2021-04-08 06:33 | NUR ---
RN NOTE RECEIVED PATIENT IN BED. A/OX2. ON MECHANICAL VENT. NO RESP DISTRESS. EXTERNAL TELE MONITOR REDS SINUS RHYTHM. IN NO APPARENT DISTRESS. IV ACCESS IN LV MIDLINE RUNNING TKO. ISRAEL CATHETER IS PRESENT, DRAINING TO GRAVITY. GTUBE IS PRESENT, CLAMPED, FEEDING TO BEGIN AT 0800. WILL MONITOR BLOOD SUGARS. BILATERAL SOFT WRIST RESTRAINTS PRESENT, NO REDNESS NOTED. BED IS LOW AND LOCKED, HOB ELEVATED IN SEMI GUERRERO, SIDE RAILS UP X3, CALL LIGHT WITHIN REACH. WILL CONTINUE TO MONITOR THROUGHOUT SHIFT.
--- NOTE | 2021-04-08 06:37 | NUR ---
RN NOTE PATIENT RESTING IN BED. A/OX2. REMAINS ON MECHANICAL VENT. THROUGHOUT NIGHT PATIENT CONTINUOUSLY REMOVES THE VENT CONNECTION DESPITE BEING RESTRAINED. NO RESP DISTRESS. TELE MONITOR IS SINUS RHYTHM.PATIENT WAS AGITATED AT NIGHT THEREFORE GIVEN ATIVAN. IV ACCESS REMAINS IN LV. ISRAEL CATHETER DRAINED 100ML OUTPUT. GTUBE REMAINS CLAMPED. WILL INFORM AM SHIFT THAT FEEDING BEGINS AT 0800. BLOOD SUGARS WNL. BILATERAL SOFT WRIST RESTRAINTS MAINTAINED, ORDER RENEWED, NO REDNESS. BED IS LOW AND LOCKED, HOB ELEVATED IN SEMI GUERRERO, SIDE RAILS UP X3, CALL LIGHT WITHIN REACH. WILL ENDORSE TO ONCOMING SHIFT.
--- NOTE | 2021-04-08 07:10 | NUR ---
RN NOTE RECEIVED PATIENT IN BED. A/OX2. ON MECHANICAL VENT. NO RESP DISTRESS. EXTERNAL TELE MONITOR SR HR IN 80'S , LV MIDLINE SITE CLEAN, DRY AND INTACT, ISRAEL CATHETER IS PRESENT, DRAINING TO GRAVITY. GTUBE IS PRESENT, CLAMPED, FEEDING TO BEGIN AT 0800. BILATERAL SOFT WRIST RESTRAINTS PRESENT, NO REDNESS NOTED. BED IS LOW AND LOCKED, HOB ELEVATED IN SEMI GUERRERO, SIDE RAILS UP X3, CALL LIGHT WITHIN REACH. WILL CONTINUE TO MONITOR THROUGHOUT SHIFT
[2021-04-08 07:24] LABS: BASOPHILS # (AUTO) 0.1 K/uL (0.0-0.2); BASOPHILS % (AUTO) 1.2 % (0.0-2.0); EOSINOPHILS % (AUTO) 3.8 % (0.0-6.0); HEMATOCRIT 26 % (39-51); HEMOGLOBIN 8.3 g/dL (13.5-17.5); LYMPHOCYTES # (AUTO) 1.3 K/uL (0.8-4.8); LYMPHOCYTES % (AUTO) 17.2 % (20.0-44.0); MEAN CORPUSCULAR HGB CONC 32 g/dl (31.0-36.0); MEAN CORPUSCULAR VOLUME 91 fL (80-96); MONOCYTES % (AUTO) 13.3 % (2.0-12.0); NEUTROPHILS # (AUTO) 4.8 K/uL (1.8-8.9); NEUTROPHILS % (AUTO) 64.5 % (43.0-81.0); PLATELET COUNT (AUTO) 353 K/uL (150-450); RED BLOOD CELL COUNT(AUTO) 2.86 MIL/uL (4.5-6.0); WHITE BLOOD COUNT (AUTO) 7.4 K/uL (4.3-11.0)
[2021-04-08 08:00] VITALS: BP 113/58
[2021-04-08 08:00] LABS: CALCIUM, SERUM 9.1 mg/dL (8.5-10.1); CREATININE 1.5 mg/dL (0.6-1.3); POTASSIUM 3.5 mmol/L (3.5-5.1)
[2021-04-08] MEDS: POTASSIUM CHLORIDE 20 MEQ POWDER PACKET GT SCH (08:38)
[2021-04-08] MEDS: PANTOPRAZOLE 40 MG VIAL IV SCH ×2 (08:38→21:35)
[2021-04-08] MEDS: PROSOURCE / PROSTAT (PYXIS) 30 ML UDC GT SCH ×2 (08:38→16:44)
[2021-04-08] MEDS: NEPRO 1,000 ML BOTTLE GT PRN (09:36)
[2021-04-08] MEDS: FLUCONAZOLE (100 MG) 100 MG TABLET PO SCH (11:25)
[2021-04-08 12:00] VITALS: BP 109/64
[2021-04-08 14:16] LABS: ABG BASE EXCESS -0.2 mmol/L; ABG OXYGEN SATURATION 98.5 % (92.0-98.5); ABG PCO2 33.2 mmHg (35.0-45.0); ABG PH 7.464 (7.350-7.450); ABG PO2 130.3 mmHg (75.0-100.0); AaDO2 80.7 mmHg; COHb 0.3 % (0.5-1.5); MetHb 0.1 % (0.0-1.5); O2Hb 98.1 % (94.0-97.0); SITE, ABG Left Brachial; VENT MODE, BG CPAP PS 15 +5 35%
--- NOTE | 2021-04-08 14:30 | NUR ---
RN NOTES PT TOLERAING CPAP MODE WELL, O2 SAT WNL, CONTINUE TO MONITOR.
[2021-04-08 16:00] VITALS: BP 130/67
--- NOTE | 2021-04-08 18:52 | NUR ---
RN NOTES PT RESTING IN BED, TOLERATING VENT CPAP MODE WELL, TF AT 50CC/HR RUNNING , NO DISTESS NOTED, WILL ENDORSE TO PROFESSIONAL NURSING ASSISTANT NURSE FOR CONTINUITY OF CARE.
--- NOTE | 2021-04-08 19:59 | NUR ---
fuse assembler Opening Notes Patient was last seen sleeping in bed. Patient's alert and oriented x2. Patient's on CPAP mode on vent with no respiratory distress noted. Patient's connected to a tele monitor with no cardiac distress noted. Patient's currently receiving a tube feeding. Patient has a right upper arm midline. Safety measures in place: Bed locked, bed alarm on, side rails up x3, and call light within reach of the patient. Will continue to monitor the patient.
[2021-04-08 20:00] VITALS: BP 129/68
[2021-04-08] MEDS: VANCOMYCIN 1 GM in IV D5W 250 ML IV SCH (23:24)
--- NOTE | 2021-04-08 23:50 | NUR ---
gas leak inspector Notes Patient's blood sugar at 2346 was 108 mg/dL. Will continue to monitor the patient
[2021-04-09] VITALS: BP 157/74
[2021-04-09] MEDS: LORAZEPAM INJ 2 MG/ML VIAL IV PRN ×3 (02:39→15:39)
[2021-04-09 04:00] VITALS: BP 134/81
[2021-04-09] MEDS: METOCLOPRAMIDE HCL 10 MG/2 ML VIAL IV SCH ×4 (05:18→23:26)
[2021-04-09] MEDS: BLOOD SUGAR DIAGNOSTIC 1 EACH STRIP IN SCH ×4 (05:32→23:26)
--- NOTE | 2021-04-09 05:33 | NUR ---
weathercaster Notes Patient's blood sugar at 0527 was 87 mg/dL. Will continue to monitor the patient
--- NOTE | 2021-04-09 06:59 | NUR ---
land planner Closing Notes Patient was last seen sleeping in bed. Patient's alert and oriented x2. Patient's on CPAP mode on vent with no respiratory distress noted. Patient's connected to a tele monitor with no cardiac distress noted. Patient's currently receiving a tube feeding. Patient has a right upper arm midline, which is intact, patent, and flushing well. Safety measures in place: Bed locked, bed alarm on, side rails up x3, and call light within reach of the patient. Will endorse care to the day shift nurse.
--- NOTE | 2021-04-09 07:30 | NUR ---
RN NOTE PATIENT OBSERVED IN BED, AWAKE, TRACHEOSTOMY OBSERVED, ON O2 VIA T-PIECE @8LPM TOLERATING WELL O2 SAT OF 98%, BREATHING EVEN AND UNLABORED, ON TELE MONITOR SR OF 97, PATIENT ON BILATERAL WRIST RESTRAINS SKIN INTACT, PATIENT ON LEFT ANKLE RESTRAIN SIKIN INTACT, RESTRAINS RENEWED THIS AM AROUND 0300 PATIENT ATTEMPTING TO PULL TRACHEOSTOMY AND ISRAEL CATHETER, PATIENT ON ISRAEL CATHETER PATENT DRAINING WELL WITH NO HEMATURIA NOTED, PATIENT ON GT FEEDING NEPHRO @50 CC TOLERATING WELL NO RESIDUAL NOTED, WITH RIGHT UPPER ARM MIDLINE FLUSHING WELL, WILL CONTINUE TO MONITOR, BED WHEELS LOCK, CALL LIGHT WITHIN REACH.
[2021-04-09 07:47] LABS: BASOPHILS # (AUTO) 0.1 K/uL (0.0-0.2); EOSINOPHILS % (AUTO) 2.4 % (0.0-6.0); HEMATOCRIT 26 % (39-51); HEMOGLOBIN 8.6 g/dL (13.5-17.5); LYMPHOCYTES # (AUTO) 1.5 K/uL (0.8-4.8); LYMPHOCYTES % (AUTO) 18.4 % (20.0-44.0); MEAN CORPUSCULAR HGB CONC 33 g/dl (31.0-36.0); MEAN CORPUSCULAR VOLUME 91 fL (80-96); MONOCYTES % (AUTO) 11.6 % (2.0-12.0); NEUTROPHILS # (AUTO) 5.4 K/uL (1.8-8.9); NEUTROPHILS % (AUTO) 66.6 % (43.0-81.0); PLATELET COUNT (AUTO) 414 K/uL (150-450); RED BLOOD CELL COUNT(AUTO) 2.89 MIL/uL (4.5-6.0); WHITE BLOOD COUNT (AUTO) 8.2 K/uL (4.3-11.0)
[2021-04-09 08:00] VITALS: BP 138/67
[2021-04-09 08:17] LABS: CALCIUM, SERUM 9.6 mg/dL (8.5-10.1); CREATININE 1.5 mg/dL (0.6-1.3); POTASSIUM 4.1 mmol/L (3.5-5.1)
[2021-04-09] MEDS: POTASSIUM CHLORIDE 20 MEQ POWDER PACKET GT SCH (09:06)
[2021-04-09] MEDS: PANTOPRAZOLE 40 MG VIAL IV SCH ×2 (09:06→21:24)
[2021-04-09] MEDS: PROSOURCE / PROSTAT (PYXIS) 30 ML UDC GT SCH ×2 (09:07→17:13)
[2021-04-09 09:45] LABS: ABG BASE EXCESS 1.4 mmol/L; ABG OXYGEN SATURATION 97.8 % (92.0-98.5); ABG PCO2 19.6 mmHg (35.0-45.0); ABG PH 7.653 (7.350-7.450); ABG PO2 100.9 mmHg (75.0-100.0); AaDO2 125.9 mmHg; COHb 0.2 % (0.5-1.5); MetHb 0.5 % (0.0-1.5); O2Hb 97.1 % (94.0-97.0); SITE, ABG Left Brachial; VENT MODE, BG C/A
[2021-04-09 12:00] VITALS: BP 127/76
[2021-04-09] MEDS: NEPRO 1,000 ML BOTTLE GT PRN (12:35)
[2021-04-09] MEDS: INSULIN REGULAR, HUMAN 100 UNIT/ML 3 ML VIAL SQ PRN ×3 (12:41→23:33)
[2021-04-09 16:00] VITALS: BP_SYST 115; BP_SYST 119; BP_DIAS 66; BP_DIAS 76
[2021-04-09] MEDS: MICAFUNGIN SODIUM 100 MG in IV NS 0.9% 100 ML IV SCH (17:46)
[2021-04-09] MEDS: AMPICILLIN SODIUM 2 GM in IV NS 0.9% 100 ML IV SCH ×2 (18:46→21:24)
--- NOTE | 2021-04-09 19:21 | NUR ---
RN NOTE PATIENT OBSERVED IN BED, AWAKE, TRACHEOSTOMY OBSERVED, ON O2 VIA T-PIECE @8LPM TOLERATING WELL O2 SAT OF 98%, BREATHING EVEN AND UNLABORED, ON TELE MONITOR SR OF 97, PATIENT ON BILATERAL WRIST RESTRAINS SKIN INTACT, PATIENT ON LEFT ANKLE RESTRAIN SKIN INTACT, RESTRAINS TO BE RENEW THIS AM AROUND 0300 PATIENT ATTEMPTING TO PULL TRACHEOSTOMY AND ISRAEL CATHETER, PATIENT ON ISRAEL CATHETER PATENT DRAINING WELL WITH NO HEMATURIA NOTED, PATIENT ON GT FEEDING NEPHRO @50 CC TOLERATING WELL NO RESIDUAL NOTED, WITH RIGHT UPPER ARM MIDLINE FLUSHING WELL,WOUND TREATMENT DONE ORDERED, MICAFUNGIN DOSE GIVEN ORDERED. WILL CONTINUE TO MONITOR, BED WHEELS LOCK, CALL LIGHT WITHIN REACH. WILL ENDORSE TO NOC SHIFT
--- NOTE | 2021-04-09 19:30 | NUR ---
RN NOTE RECEIVED PATIENT IN BED. A/OX2, ON TPIECE AT 8L ON COOL AEROSOL. RESPIRATIONS ARE EVEN AND UNLABORED. NO S/S SOB NOTED. NO C/O PIN AT THIS TIME. TELE MONITOR READS SINUS RHYTHM. NO DISTRESS. IV ACCESS IN LV MIDLINE TKO. GTUBE PRESENT, NO RESIDUAL. RUNNING NEPRO@50. ISRAEL CATH PRESENT, DRAINING TO GRAVITY. BED IS LOW AND LOCKED, HOB ELEVATED IN SEMI FOWLERS, SIDE RAILS UP X2, CALL LIGHT WITHIN REACH. WILL CONTINUE TO MONITOR.
[2021-04-09 20:00] VITALS: BP 109/73
[2021-04-10] VITALS: BP 104/68
[2021-04-10] MEDS: AMPICILLIN SODIUM 2 GM in IV NS 0.9% 100 ML IV SCH ×6 (01:22→22:14)
--- NOTE | 2021-04-10 02:35 | NUR ---
RN NOTE OBTAINED ORDER FROM MARTA JOHNSON DNP TO RENEW BILATERAL SOFT WRIST RESTRAINTS WELL SOFT LEFT LEG RESTRAINT.
[2021-04-10 04:00] VITALS: BP 117/73
[2021-04-10] MEDS: METOCLOPRAMIDE HCL 10 MG/2 ML VIAL IV SCH ×4 (04:46→22:33)
[2021-04-10] MEDS: LORAZEPAM INJ 2 MG/ML VIAL IV PRN ×3 (04:46→22:13)
[2021-04-10] MEDS: BLOOD SUGAR DIAGNOSTIC 1 EACH STRIP IN SCH ×3 (05:56→17:27)
[2021-04-10] MEDS: INSULIN REGULAR, HUMAN 100 UNIT/ML 3 ML VIAL SQ PRN (06:00)
[2021-04-10 07:44] LABS: BASOPHILS # (AUTO) 0.1 K/uL (0.0-0.2); HEMATOCRIT 26 % (39-51); HEMOGLOBIN 8.4 g/dL (13.5-17.5); LYMPHOCYTES # (AUTO) 1.5 K/uL (0.8-4.8); LYMPHOCYTES % (AUTO) 19.2 % (20.0-44.0); MEAN CORPUSCULAR HGB CONC 33 g/dl (31.0-36.0); MEAN CORPUSCULAR VOLUME 91 fL (80-96); MONOCYTES # (AUTO) 0.8 K/uL (0.1-1.30); MONOCYTES % (AUTO) 10.1 % (2.0-12.0); NEUTROPHILS # (AUTO) 5.3 K/uL (1.8-8.9); NEUTROPHILS % (AUTO) 66.7 % (43.0-81.0); PLATELET COUNT (AUTO) 381 K/uL (150-450); RED BLOOD CELL COUNT(AUTO) 2.82 MIL/uL (4.5-6.0); WHITE BLOOD COUNT (AUTO) 7.9 K/uL (4.3-11.0)
[2021-04-10 08:00] VITALS: BP 117/73
[2021-04-10 08:34] LABS: ALBUMIN 2.1 g/dL (3.4-5.0); BILIRUBIN,DIRECT 0.8 mg/dL (0.0-0.2); CALCIUM, SERUM 9.4 mg/dL (8.5-10.1); CREATININE 1.5 mg/dL (0.6-1.3); MAGNESIUM 1.7 mg/dL (1.8-2.4); PHOSPHORUS 4.4 mg/dL (2.5-4.9); POTASSIUM 3.9 mmol/L (3.5-5.1); TOTAL PROTEIN, SERUM 8.6 g/dL (6.4-8.2)
[2021-04-10] MEDS: PROSOURCE / PROSTAT (PYXIS) 30 ML UDC GT SCH ×2 (09:00→17:27)
[2021-04-10] MEDS: POTASSIUM CHLORIDE 20 MEQ POWDER PACKET GT SCH (10:07)
[2021-04-10] MEDS: PANTOPRAZOLE 40 MG VIAL IV SCH ×2 (10:07→22:12)
[2021-04-10] MEDS: Magnesium 1GM/D5W 100ML PREMIX 100 ML IV SCH ×2 (11:32→12:32)
[2021-04-10 12:00] VITALS: BP 117/73
[2021-04-10 16:00] VITALS: BP 117/73
[2021-04-10] MEDS: MICAFUNGIN SODIUM 100 MG in IV NS 0.9% 100 ML IV SCH (17:59)
[2021-04-10] MEDS ORDERED: QUETIAPINE FUMARATE 25 MG TABLET PO SCH (18:00)
--- NOTE | 2021-04-10 19:24 | NUR ---
RN NOTE ATIVAN REMOVED FROM [facility] FOR PATIENT AT 1620, FORGOT TO SCAN DURING ADMINISTRATION OF MEDICATION TO PATIENT
[2021-04-10 20:00] VITALS: BP 121/67
--- NOTE | 2021-04-10 20:00 | NUR ---
RN OPENING NOTES: RECEIVED PT IN BED RESTING COMFORTABLE,ON T-PIECE.AT 8 LITERS COOL AEROSOL TOLERATING WELL . NO S/SX OF ACUTE DISTRESS , NO SOB NOTED. BREATHING IS EVEN AND UNLABORED. ON TELE MONITORING READING SINUS RHYTHM HR IS @83s SATING 100% ,GT FEEDING OF NEPHRO AT 50CC/HR TOLERATING WELL NO RESIDUAL NOTED PLACEMENT VERIFIED THRU AUSCULTATION. . NOTED IV SITE @ R U[facility] MIDLINE #18 PATENT, INTACT AND FLUSHING WELL; NO S/S OF INFECTION OR INFILTRATION. ISRAEL CATH IN PLACE, MODERATE URINE OUTPUT ON SPECIALTY MATRESS. SAFETY MEASURES HAVE BEEN PROVIDED AND IMPLEMENTED. PATIENT BED ALARM IS ON. HEAD OF BED ELEVATED. BED IS LOCKED, IN LOWEST POSITION AND SIDE RAILS UP. CALL LIGHT WITHIN REACH OF THE PATIENT. WITH BILATERAL SOFT WRIST RESTRAINT TO PREVENT PULLING INVASIVE TUBING V/WS STABLE AFEBRILE ALL DUE MEDS GIVEN ORDERED.. WILL CONTINUE TO MONITOR AND REASSESS FOR ANY CHANGES AND WILL CARRY OUT ANY ONGOING AND ACTIVE MD ORDER.
[2021-04-11] VITALS: BP 121/79
--- NOTE | 2021-04-11 | NUR ---
ASSISTANT LABORATORY DIRECTOR NOTES BLOOD SUGAR AT 12MN IS 102 NO COVERAGE GIVEN PER SLIDING SCALE WILL CHECK AGAIN IN AM
[2021-04-11] MEDS: BLOOD SUGAR DIAGNOSTIC 1 EACH STRIP IN SCH ×4 (00:28→18:00)
[2021-04-11] MEDS: INSULIN REGULAR, HUMAN 100 UNIT/ML 3 ML VIAL SQ PRN ×3 (00:30→12:03)
[2021-04-11] MEDS: AMPICILLIN SODIUM 2 GM in IV NS 0.9% 100 ML IV SCH ×5 (02:27→18:00)
[2021-04-11 04:00] VITALS: BP 119/80
[2021-04-11] MEDS: METOCLOPRAMIDE HCL 10 MG/2 ML VIAL IV SCH ×3 (05:38→17:30)
--- NOTE | 2021-04-11 06:00 | NUR ---
telecom assistant notes blood sugar at 6am is 106 mg/dl no coverage given per sliding scale
[2021-04-11 07:02] LABS: BASOPHILS # (AUTO) 0.1 K/uL (0.0-0.2); BASOPHILS % (AUTO) 0.9 % (0.0-2.0); EOSINOPHILS % (AUTO) 3.4 % (0.0-6.0); HEMATOCRIT 28 % (39-51); HEMOGLOBIN 9.1 g/dL (13.5-17.5); LYMPHOCYTES # (AUTO) 1.6 K/uL (0.8-4.8); LYMPHOCYTES % (AUTO) 16.5 % (20.0-44.0); MEAN CORPUSCULAR HGB CONC 32 g/dl (31.0-36.0); MEAN CORPUSCULAR VOLUME 91 fL (80-96); MONOCYTES # (AUTO) 0.8 K/uL (0.1-1.30); MONOCYTES % (AUTO) 8.1 % (2.0-12.0); NEUTROPHILS # (AUTO) 6.9 K/uL (1.8-8.9); NEUTROPHILS % (AUTO) 71.1 % (43.0-81.0); PLATELET COUNT (AUTO) 471 K/uL (150-450); RED BLOOD CELL COUNT(AUTO) 3.12 MIL/uL (4.5-6.0); WHITE BLOOD COUNT (AUTO) 9.7 K/uL (4.3-11.0)
--- NOTE | 2021-04-11 07:18 | NUR ---
cable television line technician notes endorse to rn day for continiuty of care.
[2021-04-11 07:54] LABS: CALCIUM, SERUM 9.5 mg/dL (8.5-10.1); CREATININE 1.4 mg/dL (0.6-1.3); MAGNESIUM 1.8 mg/dL (1.8-2.4)
[2021-04-11 08:00] VITALS: BP 141/82
[2021-04-11] MEDS: PANTOPRAZOLE 40 MG VIAL IV SCH (09:17)
[2021-04-11] MEDS: POTASSIUM CHLORIDE 20 MEQ POWDER PACKET GT SCH (09:17)
[2021-04-11] MEDS: PROSOURCE / PROSTAT (PYXIS) 30 ML UDC GT SCH ×2 (09:17→17:00)
--- NOTE | 2021-04-11 10:46 | NUR ---
WOUND CARE: NURSING STAFF PLACING PT ON GOMEZ ISOFLEX LOW AIRLOSS BED DUE TO PT MOVING ABOUT ALMOST CONSTANTLY IN BARIMAX BED. BARIMAX ETS AIR BED DISCONTINUED. DISCUSSED WITH NURSING STAFF.
[2021-04-11] MEDS: LORAZEPAM INJ 2 MG/ML VIAL IV PRN (11:05)
[2021-04-11] MEDS ORDERED: AMPI1VIA26 IV (11:57)
[2021-04-11] MEDS ORDERED: MICA100V3 IV (11:57)
[2021-04-11] MEDS ORDERED: PANT40VI IV (11:58)
[2021-04-11] MEDS ORDERED: Nepro GT (11:58)
[2021-04-11] MEDS ORDERED: POTA20PA3 GT (11:58)
[2021-04-11] MEDS ORDERED: HYDR20VI4 IV (11:58)
[2021-04-11] MEDS ORDERED: Prosource GT (11:58)
[2021-04-11] MEDS ORDERED: METO5VIA6 IV (11:58)
[2021-04-11 12:00] VITALS: BP 140/82
--- NOTE | 2021-04-11 12:03 | NUR ---
B/S 96. NO ISULIN NEEDED PER SLIDING SCALE
[2021-04-11] MEDS: NEPRO 1,000 ML BOTTLE GT PRN (13:56)
[2021-04-11 16:00] VITALS: BP 136/78
--- NOTE | 2021-04-11 17:26 | NUR ---
RN NOTES Incident report on file regarding pt's belongings. Unique Id: [id number]
--- NOTE | 2021-04-11 17:53 | NUR ---
ENVIRONMENTAL SERVICES ASSISTANT NOTES PATIENT DISCHARGE TO [facility] TODAY PER MD IN STABLE CONDITION. PROVIDED DC INSTRUCTION, MED RECON LIST AND HEALTH TEACHINGS. IV ACCESS ON LV MIDLINE FLUSHES WELL, SITE CLEAR. G TUBE IN PLACE, INTACT PATENT. PATIENT ON T PIECE SHILEY XLT 7 TO COOL AEROSOL SATTING 98%. UNABLE TO GET PHOTOS OF SKIN ISSUES, PATIENT BECOMES COMBATIVE AND HITS WHEN BEING TURNED. ALL PAPER WORKS SIGNED, INCIDENT REPORT ON FILE FOR SOME BELONGINGS, TRANSPORTED VIA 3 AMBULANCE CREW TO FACILITY. REPORT GIVEN TO FACILITY STAFF BY CHANTEL LYNCH.
[2021-04-11] MEDS: MICAFUNGIN SODIUM 100 MG in IV NS 0.9% 100 ML IV SCH (18:00)
--- NOTE | 2021-04-11 18:04 | NUR ---
PT REFUSED NIGHT TIME MEDICATION. EXPLAINED THE RISKS AND BENEFITS. PT SEEMED TO UNDERSTAND. PT STILL REFUSED. WILL CONTINUE TO MONITOR.
== END 2021-04-11 18:13 | DRG 4 ==
LOC: ER 17:23 → MED 20:12 → ICU 03-11 11:08 → TELE-TD 04-01 18:02 → TELE1 04-05 08:49
PROVIDERS: ADMIT Hospitalist; ATTEND Hospitalist
PROC: 5A1955Z Respiratory Ventilation, Greater than 96 Consecutive Hours (ICD-10-PCS; 2021-03-10)
PROC: 0DB80ZZ Excision of Small Intestine, Open Approach (ICD-10-PCS; principal; 2021-03-11)
PROC: 0WQF0ZZ Repair Abdominal Wall, Open Approach (ICD-10-PCS; 2021-03-11)
PROC: 0DN80ZZ Release Small Intestine, Open Approach (ICD-10-PCS; 2021-03-11)
PROC: 02HV33Z Insertion of Infusion Device into Superior Vena Cava, Percutaneous Approach (ICD-10-PCS; 2021-03-11)
PROC: B548ZZA Ultrasonography of Superior Vena Cava, Guidance (ICD-10-PCS; 2021-03-11)
PROC: 05HM33Z Insertion of Infusion Device into Right Internal Jugular Vein, Percutaneous Approach (ICD-10-PCS; 2021-03-12)
PROC: B543ZZA Ultrasonography of Right Jugular Veins, Guidance (ICD-10-PCS; 2021-03-12)
PROC: 5A1D70Z Performance of Urinary Filtration, Intermittent, Less than 6 Hours Per Day (ICD-10-PCS; 2021-03-21)
PROC: 30233N1 Transfusion of Nonautologous Red Blood Cells into Peripheral Vein, Percutaneous Approach (ICD-10-PCS; 2021-03-22)
PROC: 0B113F4 Bypass Trachea to Cutaneous with Tracheostomy Device, Percutaneous Approach (ICD-10-PCS; 2021-03-25)
PROC: 0DH63UZ Insertion of Feeding Device into Stomach, Percutaneous Approach (ICD-10-PCS; 2021-03-25)
PROC: 02HV33Z Insertion of Infusion Device into Superior Vena Cava, Percutaneous Approach (ICD-10-PCS; 2021-03-25)
PROC: B548ZZA Ultrasonography of Superior Vena Cava, Guidance (ICD-10-PCS; 2021-03-25)
PROC: 0DJ08ZZ Inspection of Upper Intestinal Tract, Via Natural or Artificial Opening Endoscopic (ICD-10-PCS; 2021-03-25)
PROC: 0W9G3ZZ Drainage of Peritoneal Cavity, Percutaneous Approach (ICD-10-PCS; 2021-03-30)
PROC: 02HV33Z Insertion of Infusion Device into Superior Vena Cava, Percutaneous Approach (ICD-10-PCS; 2021-03-30)
PROC: B548ZZA Ultrasonography of Superior Vena Cava, Guidance (ICD-10-PCS; 2021-03-30)
PROC: 05HB33Z Insertion of Infusion Device into Right Basilic Vein, Percutaneous Approach (ICD-10-PCS; 2021-04-06)
PROC: 0DH63UZ Insertion of Feeding Device into Stomach, Percutaneous Approach (ICD-10-PCS; 2021-04-07)
DX: A41.9 Sepsis, unspecified organism (principal); N17.0 Acute kidney failure with tubular necrosis; I21.A1 Myocardial infarction type 2; J69.0 Pneumonitis due to inhalation of food and vomit; E43 Unspecified severe protein-calorie malnutrition; R65.21 Severe sepsis with septic shock; B49 Unspecified mycosis; G93.41 Metabolic encephalopathy; E87.4 Mixed disorder of acid-base balance; J96.01 Acute respiratory failure with hypoxia; J96.02 Acute respiratory failure with hypercapnia; E87.2 Acidosis; D68.59 Other primary thrombophilia; D69.59 Other secondary thrombocytopenia; E87.1 Hypo-osmolality and hyponatremia; D75.1 Secondary polycythemia; E87.6 Hypokalemia; E83.39 Other disorders of phosphorus metabolism; E87.0 Hyperosmolality and hypernatremia; Z66 Do not resuscitate; E83.51 Hypocalcemia; E80.6 Other disorders of bilirubin metabolism; Z20.822 Contact with and (suspected) exposure to COVID-19; K29.70 Gastritis, unspecified, without bleeding; K76.0 Fatty (change of) liver, not elsewhere classified; D63.8 Anemia in other chronic diseases classified elsewhere; E66.9 Obesity, unspecified; Z68.41 Body mass index [BMI] 40.0-44.9, adult; E86.1 Hypovolemia; F17.200 Nicotine dependence, unspecified, uncomplicated; I67.2 Cerebral atherosclerosis; J98.11 Atelectasis; J90 Pleural effusion, not elsewhere classified; K65.9 Peritonitis, unspecified; R13.10 Dysphagia, unspecified; R18.8 Other ascites; K43.6 Other and unspecified ventral hernia with obstruction, without gangrene; K56.50 Intestinal adhesions [bands], unspecified as to partial versus complete obstruction; Z99.2 Dependence on renal dialysis; L89.96 Pressure-induced deep tissue damage of unspecified site; Z74.09 Other reduced mobility
CPT/HCPCS: 31720; 36410; 36415; 36569; 36600; 43246; 70450-TC; 71045-TC; 71250-TC; 71270-TC; 74178; 76705-TC; 76770-TC; 76942-TC; 80048-TC; 80053-TC; 80061-TC; 80076-TC; 80202-TC; 82272-TC; 82533; 82728-TC; 82784; 82803-TC; 82962-TC; 83540-TC; 83605-TC; 83690-TC; 83735-TC; 84100-TC; 84155; 84165; 84443-TC; 84478-TC; 84484-TC; 85025-TC; 85396; 85610-TC; 85730-TC; 86225; 86235; 86334; 86431-TC; 86706; 86803; 86850-TC; 87040-TC; 87070-TC; 87075-TC; 87081-TC; 87086-TC; 87186-TC; 87340; 88108-TC; 88302-TC; 88305-TC; 88307-TC; 88312-TC; 90935-TC; 92526; 92611-TC; 93307-TC; 93970-TC; 94003-TC; 94640-TC; 94664-TC; 94760-TC; 94762-TC; 94799-TC; 99082-TC; A4216; A4217; A4623; A4624; A6253; A6403; A7526; A9563; C1750; C9113; C9803; G0378; J0290; J0330; J0360; J0690; J0692; J0885; J1100; J1170; J1200; J1450; J1720; J1815; J2060; J2185; J2248; J2250; J2270; J2370; J2405; J2543; J2704; J2765; J2997; J3010; J3370; J3475; J3480; J3490; J7030; J7040; J7050; J7060; J7070; P9016; Q9967

== ENCOUNTER 2021-05-28 09:01 | Emergency (ER) | payer OTHER ==
[~2021-05-28] VITALS: Ht 175.3 cm; Wt 105.2 kg
[~2021-05-28 09:01] MED LIST: AMPI1VIA26 IV; HYDR20VI4 IV; METO5VIA6 IV; MICA100V3 IV; Nepro GT; PANT40VI IV; POTA20PA3 GT; Prosource GT
--- NOTE | 2021-05-28 09:02 | NUR ---
DR TAYLOR AT THE BEDSIDE
--- NOTE | 2021-05-28 09:06 | NUR ---
The patient is bibpa, from snf, c/o RLQ swelling and tenderness started yesterday. Denies pain at this time. Abdomen soft and non-distended. In room air and denies SOB. Respiration regular and unlabored. Will continue to monitor the patient.
--- NOTE | 2021-05-28 09:19 | NUR ---
STARTED LAC G 18, BLOOD SPECIMEN COLLECTED AND SENT TO THE LAB. THE LINE IS SALINE LOCKED.
[2021-05-28 09:29] LABS: BASOPHILS # (AUTO) 0.1 K/uL (0.0-0.2); BASOPHILS % (AUTO) 1.1 % (0.0-2.0); EOSINOPHILS % (AUTO) 3.1 % (0.0-6.0); HEMATOCRIT 36 % (39-51); HEMOGLOBIN 12.2 g/dL (13.5-17.5); LYMPHOCYTES # (AUTO) 1.6 K/uL (0.8-4.8); LYMPHOCYTES % (AUTO) 20.1 % (20.0-44.0); MEAN CORPUSCULAR HGB CONC 34 g/dl (31.0-36.0); MEAN CORPUSCULAR VOLUME 89 fL (80-96); MONOCYTES # (AUTO) 0.9 K/uL (0.1-1.30); MONOCYTES % (AUTO) 11.8 % (2.0-12.0); NEUTROPHILS # (AUTO) 4.9 K/uL (1.8-8.9); NEUTROPHILS % (AUTO) 63.9 % (43.0-81.0); PLATELET COUNT (AUTO) 297 K/uL (150-450); RED BLOOD CELL COUNT(AUTO) 4.06 MIL/uL (4.5-6.0); WHITE BLOOD COUNT (AUTO) 7.7 K/uL (4.3-11.0)
[2021-05-28] MEDS ORDERED: IV NS 0.9% 1,000 ML IV ONE (09:30)
[2021-05-28 09:56] LABS: CALCIUM, SERUM 8.9 mg/dL (8.5-10.1); POTASSIUM 3.7 mmol/L (3.5-5.1)
[2021-05-28 09:57] LABS: BILIRUBIN,DIRECT 0.1 mg/dL (0.0-0.2); BILIRUBIN,TOTAL 0.3 mg/dL (0.2-1.0)
[2021-05-28 09:58] LABS: ALBUMIN 3.1 g/dL (3.4-5.0); TOTAL PROTEIN, SERUM 7.8 g/dL (6.4-8.2)
--- NOTE | 2021-05-28 10:03 | NUR ---
URINE IS COLLECTED AND SENT TO THE LAB
--- NOTE | 2021-05-28 10:04 | NUR ---
THE PATIENT IS TAKEN TO CT
[2021-05-28] MEDS ORDERED: IV NS 0.9% 250 ML IV ONE (10:06)
[2021-05-28] MEDS ORDERED: IOHEXOL-300 100 ML VIAL IV ONE (10:06)
[2021-05-28] MEDS ORDERED: POTA20TA83 PO (10:10)
[2021-05-28] MEDS ORDERED: BUPR150T5 PO (10:10)
[2021-05-28] MEDS ORDERED: ONDA4TAB5 PO (10:10)
[2021-05-28] MEDS ORDERED: AMIN887L PO (10:10)
[2021-05-28] MEDS ORDERED: LORA-259 PO (10:10)
[2021-05-28] MEDS ORDERED: NA P133E RC (10:10)
[2021-05-28] MEDS ORDERED: MAGN400O6 PO (10:10)
[2021-05-28] MEDS ORDERED: ZOLP5TAB2 PO (10:10)
[2021-05-28] MEDS ORDERED: QUET200T PO (10:10)
[2021-05-28] MEDS ORDERED: ASCO500C17 PO (10:10)
[2021-05-28] MEDS ORDERED: IPRA4AER IH (10:10)
[2021-05-28] MEDS ORDERED: ACET325T53 PO (10:10)
[2021-05-28] MEDS ORDERED: OMEP20TA5 PO (10:10)
--- NOTE | 2021-05-28 10:22 | NUR ---
THE PATIENT IS BACK FROM CT
[2021-05-28 11:00] LABS: BILIRUBIN,URINE NEGATIVE (NEGATIVE); COLOR,URINE YELLOW (YELLOW); LEUKOCYTE ESTERASE ,URINE NEGATIVE (NEGATIVE); NITRITE, URINE NEGATIVE (NEGATIVE); PROTEIN,URINE NEGATIVE (NEGATIVE); UGLUCOSE NEGATIVE (NEGATIVE); UROBILINOGEN,URINE 0.2 EU/dL (0.2)
--- NOTE | 2021-05-28 12:16 | NUR ---
TRANSPORT WILL BE HERE AT 2081
--- NOTE | 2021-05-28 13:11 | NUR ---
REPORT GIVEN TO NURSE ARCHIBALD FROM [facility]
--- NOTE | 2021-05-28 13:13 | NUR ---
Patient discharged to snf in stable condition. Written and verbal after care instructions given. Patient verbalizes understanding of instruction. Report given to nurse Peterson
[2021-05-28 13:14] VITALS: BP 127/85
== END 2021-05-28 13:14 ==
LOC: ER 09:07
DX: K43.9 Ventral hernia without obstruction or gangrene (principal); F17.200 Nicotine dependence, unspecified, uncomplicated; Z79.899 Other long term (current) drug therapy
CPT/HCPCS: 36415; 74177; 80048; 80076; 81003; 83690; 85025; 96360; 99285; J7030; J7050; Q9967